=== PATIENT | female | born 1970 | race Caucasian/White ===

== ENCOUNTER 2020-07-05 07:04 | Outpatient (REF) | payer OTHER, SELFPAY ==
[2020-07-05 07:24] LABS: MANUAL DIFF FLAG NO
[2020-07-05 07:26] LABS: Basophils Absolute Auto 0.1 X10*3/uL (0.0-0.2); Basophils Percent Auto 0.6 % (0-2); Eosinophils Absolute Auto 0.2 X10*3/uL (0.0-0.4); Hematocrit 49.6 % (37-47); Hemoglobin 16.5 g/dl (12.0-16.0); Imm Gran Abs Auto 0.03 X10*3/uL (0.00-0.03); Imm Gran Pct Auto 0.2 % (0.0-0.4); Lymphocytes Absolute Auto 3.4 X10*3/uL (1.2-4.9); Lymphocytes Percent Auto 27.3 % (20-40); Mean Corpuscular HGB Conc 33.3 g/dl (31.0-35.0); Mean Corpuscular Hemoglobin 30.7 pg (27.0-33.0); Mean Corpuscular Volume 92.2 fL (80-98); Mean Platelet Volume 9.3 fL (9.4-12.3); Monocytes Absolute Auto 0.8 X10*3/uL (0.1-1.2); Monocytes Percent Auto 6.8 % (2-11); Neutrophils Absolute Auto 7.7 X10*3/uL (2.0-8.3); Neutrophils Percent Auto 63.1 % (45-73); Platelet Count 337 X10*3/uL (160-400); Red Blood Count 5.38 X10*6/uL (4.20-5.50); Red Cell Distribution Width 13.8 % (11.0-16.0); White Blood Count 12.3 X10*3/uL (4.8-10.8)
[2020-07-05 07:51] LABS: Alanine Aminotransferase 94 U/L (0-31); Albumin Level 4.3 g/dL (3.5-5.0); Alkaline Phosphatase 113 U/L (39-117); Anion Gap 13 (12-20); Aspartate Amino Transferase 49 U/L (5-31); Bilirubin Direct 0.3 mg/dL (0.0-0.5); Bilirubin Total 0.4 mg/dL (0.0-1.0); Blood Urea Nitrogen 7 mg/dL (9-16); Calcium 8.9 mg/dL (8.4-10.2); Carbon Dioxide 24 mmol/L (22-29); Chloride 103 mmol/L (96-108); Cholesterol 103 mg/dL; Estimated Glomerular Filt Rate > 60; Glucose Fasting 157 mg/dL (60-99); HDL Cholesterol 29 mg/dL; LDL Cholesterol Calculated 60 mg/dl; Potassium 3.9 mmol/l (3.3-5.1); Sodium 136 mmol/L (135-145); Triglycerides 73 mg/dL
[2020-07-05 08:27] LABS: Estimated Average Glucose 169 mg/dL; Hemoglobin A1c % 7.5 %
== END 2020-07-05 07:05 | disposition home or self-care (01) ==
LOC: HO.LAB 07:04
DX: E78.5 Hyperlipidemia, unspecified (principal); E11.9 Type 2 diabetes mellitus without complications
CPT/HCPCS: 36415; 80053; 80061; 80076; 82248; 83036; 85025

== ENCOUNTER 2020-12-03 06:44 | Outpatient (REF) | payer OTHER, SELFPAY ==
[2020-12-03 08:16] LABS: Basophils Absolute Auto 0.1 X10*3/uL (0.0-0.2); Basophils Percent Auto 0.7 % (0-2); Eosinophils Absolute Auto 0.3 X10*3/uL (0.0-0.4); Eosinophils Percent Auto 2.3 % (0-4); Hematocrit 49.3 % (37-47); Hemoglobin 16.6 g/dl (12.0-16.0); Imm Gran Abs Auto 0.04 X10*3/uL (0.00-0.03); Imm Gran Pct Auto 0.3 % (0.0-0.4); Lymphocytes Absolute Auto 5.2 X10*3/uL (1.2-4.9); Lymphocytes Percent Auto 38.9 % (20-40); MANUAL DIFF FLAG SCAN; Mean Corpuscular HGB Conc 33.7 g/dl (31.0-35.0); Mean Corpuscular Hemoglobin 31.7 pg (27.0-33.0); Mean Corpuscular Volume 94.1 fL (80-98); Mean Platelet Volume 10.3 fL (9.4-12.3); Monocytes Absolute Auto 0.9 X10*3/uL (0.1-1.2); Monocytes Percent Auto 6.7 % (2-11); Neutrophils Absolute Auto 6.8 X10*3/uL (2.0-8.3); Neutrophils Percent Auto 51.1 % (45-73); Platelet Count 369 X10*3/uL (160-400); Red Blood Count 5.24 X10*6/uL (4.20-5.50); Red Cell Distribution Width 13.3 % (11.0-16.0); SCAN SMEAR FLAG 1; White Blood Count 13.3 X10*3/uL (4.8-10.8)
[2020-12-03 08:31] LABS: Alanine Aminotransferase 70 U/L (0-31); Aspartate Amino Transferase 39 U/L (5-31); Glucose Fasting 168 mg/dL (60-99)
[2020-12-03 08:32] LABS: Estimated Average Glucose 166 mg/dL; Hemoglobin A1c % 7.4 %
[2020-12-03 08:54] LABS: SLIDE REVIEW VERIFIED
[2020-12-03 09:17] LABS: Creatinine Urine 148.19 mg/dL; Microalbum/Creatinine Ratio Ur 6.7 ug/mg cr
== END 2020-12-03 06:45 | disposition home or self-care (01) ==
LOC: HO.LAB 06:44
PROVIDERS: PCP Family Medicine; Visit Provider Family Medicine
DX: E78.00 Pure hypercholesterolemia, unspecified (principal); E11.9 Type 2 diabetes mellitus without complications; D45 Polycythemia vera; Z79.899 Other long term (current) drug therapy
CPT/HCPCS: 36415; 82043; 82550; 82947; 83036; 84450; 84460; 85025

== ENCOUNTER 2021-02-10 06:29 | Day surgery (SDC) | payer OTHER, SELFPAY ==
[2021-02-03 13:34] VITALS: BMI 27.3
--- NOTE | 2021-02-09 08:59 | HO.ANESPROP2 ---
HPI - Anesthesia Eval Consult details Narrative: 50yo F for Colonoscopy PMFSH Past Medical History Medical History COVID-19 vaccine administered Diabetes Elevated cholesterol Surgical History Surgical History Hx of elbow surgery Hx of tubal ligation Social History Social History Patient Tobacco Use Status: Current everyday Tobacco user Tobacco use type: Cigarette Cigarette Packs Per Day: 1 Cigarettes Per Day: 20.0 Years Smoked: 40 Smoked in Last 30 Days: Yes Use of substances other than those prescribed or required for medical reasons: No Are you DNR?: No Advance Directives: No (pt states she may have HCP & it would be her ) Advance Directives Information Provided: No Advance Directives on File: No Recently lost weight without trying: No Eating poorly because of decreased appetite: No Nutrition Risks: No Nutritional Risk Patient : No Poor oral hygiene: No Meds Allergies Allergy/AdvReac Type Severity Reaction Status Date / Time mushroom Allergy Intermediate DRY HEAVES Verified 02/10/21 06:34 seafood Allergy Intermediate Nausea and Verified 02/10/21 06:34 Vomiting Home Medications Medication Instructions Recorded Confirmed Last Taken Type atorvastatin 20 mg PO BEDTIME 02/03/21 02/03/21 Unknown History coenzyme Q10 [Co Q-10] 100 mg PO BEDTIME 02/03/21 02/03/21 Unknown History metformin 500 mg PO BEDTIME 02/03/21 02/03/21 Unknown History Exam Exam Date and Time: February 09, 2021 0859 Height,Weight and Vital Signs: Height 5 ft Weight 63.503 kg Assessment and Plan Assessment Anesthesia Assessment: Chart Reviewed
[2021-02-10 06:51] VITALS: BP 121/84; PULSE 110; RESP 18; TEMP 36.8; O2SAT 95
[2021-02-10 06:52] LABS: Glucose, Whole Blood 207 mg/dL (60-115)
[2021-02-10] MEDS: Lactated Ringers 1,000 ML 100 ML IVCONT (07:01)
--- NOTE | 2021-02-10 07:22 | P.CONAN_ITS ---
[facility] Past Medical History Medical History COVID-19 vaccine administered Diabetes Elevated cholesterol Surgical History Surgical History Hx of elbow surgery Hx of tubal ligation Social History Social History Patient Tobacco Use Status: Current everyday Tobacco user Tobacco use type: Cigarette Cigarette Packs Per Day: 1 Cigarettes Per Day: 20.0 Years Smoked: 40 Smoked in Last 30 Days: Yes Use of substances other than those prescribed or required for medical reasons: No Are you DNR?: No Advance Directives: No (pt states she may have HCP & it would be her ) Advance Directives Information Provided: No Advance Directives on File: No Recently lost weight without trying: No Eating poorly because of decreased appetite: No Nutrition Risks: No Nutritional Risk Patient : No Poor oral hygiene: No Meds Allergies Allergy/AdvReac Type Severity Reaction Status Date / Time mushroom Allergy Intermediate DRY HEAVES Verified 02/10/21 06:34 seafood Allergy Intermediate Nausea and Verified 02/10/21 06:34 Vomiting Active Medications: Current Medications Generic Name Dose Route Start Last Admin Trade Name Freq PRN Reason Stop Dose Admin Albuterol Sulfate 2.5 mg 02/10/21 06:30 Albuterol Sulfate (0.083%) 2.5 Mg/3 Ml Vial.Neb INHALE ONCE PRN Shortness of Breath/Wheezing Lactated Ringer's 1,000 mls @ 100 mls/hr 02/10/21 06:30 02/10/21 07:01 Lr IVCONT 100 mls/hr .Q10H LOLITA Administration Home Medications Medication Instructions Recorded Confirmed Last Taken Type atorvastatin 20 mg PO BEDTIME 02/03/21 02/03/21 Unknown History coenzyme Q10 [Co Q-10] 100 mg PO BEDTIME 02/03/21 02/03/21 Unknown History metformin 500 mg PO BEDTIME 02/03/21 02/03/21 Unknown History Exam Exam Date and Time: February 10, 2021 0722 Height,Weight and Vital Signs: Height 5 ft Weight 63.503 kg Last Vital Signs Temp 98.3 F 02/10/21 06:51 Pulse 110 H 02/10/21 06:51 Resp 18 02/10/21 06:51 BP 121/84 02/10/21 06:51 Pulse Ox 95 02/10/21 06:51 Pertinent Lab Results Pertinent Lab Results: Laboratory Tests 02/10/21 06:48 POC Glucose 207 H Airway Mallampati Class: II TM Dist: >3cm Neck ROM: Full Heart: RRR Lungs: CTA
--- NOTE | 2021-02-10 07:27 | MHC.SHP ---
Pre-Procedural Eval Section A Date of Service: 02/10/21 Section B Chief Complaint: screening Details of Present Illness: screening see H&P no changes Relevant Family History (Specify if Yes): No Relevant Social History: None Present Medications: see Short Stay Collaborative assessment Medical History: No relevant PMH History of Previous Operations: No relevant previous surgery Allergies: Allergies Allergy/AdvReac Type Severity Reaction Status Date / Time mushroom Allergy Intermediate DRY HEAVES Verified 02/10/21 06:34 seafood Allergy Intermediate Nausea and Verified 02/10/21 06:34 Vomiting Review of Systems Sugical H&P ROS: Negative: Constitution, Cardiovascular, Respiratory, Neurological, Psychiatric, Hem-Onc, Allergic/Immunologic, Gastrointestinal, Genitourinary, Musculoskeletal, Integumentary, Endocrine and Eyes/Ears/Nose/Throat Exam Surgical H&P Exam: Normal: HEENT, Normal: Heart, Normal: Lungs, Normal: Extremities, Normal: Abdomen, Normal: Skin and Normal: Neurological Plan Diagnosis/Plan: Unchanged I have reviewed the history and physical and performed a pertinent physical examination on my patient. No changes have occurred unless specified.
--- NOTE | 2021-02-10 07:56 | P.BOP_ITS ---
Brief Operative Note Date of Service: 02/10/21 Pre-op diagnosis: screening Post-op diagnosis: same Procedure: colonoscopy Surgeon: Dom Horowitz Anesthesia: MAC Was an Rn Physician Office used for this Procedure?: No Estimated blood loss (mL): 0 Pathology: none sent Condition: stable Disposition: PACU
[2021-02-10 08:00] VITALS: BP 103/73; PULSE 83; RESP 16; TEMP 36.2; O2SAT 97
--- NOTE | 2021-02-10 08:04 | MHC.SHP ---
Pre-Procedural Eval Section A Date of Service: 02/10/21 Section B Chief Complaint: screening Details of Present Illness: screening, see H&P no changes Relevant Family History (Specify if Yes): No Relevant Social History: None Present Medications: see Short Stay Collaborative assessment Medical History: No relevant PMH History of Previous Operations: No relevant previous surgery Allergies: Allergies Allergy/AdvReac Type Severity Reaction Status Date / Time mushroom Allergy Intermediate DRY HEAVES Verified 02/10/21 06:34 seafood Allergy Intermediate Nausea and Verified 02/10/21 06:34 Vomiting Review of Systems Sugical H&P ROS: Negative: Constitution, Cardiovascular, Respiratory, Neurological, Psychiatric, Hem-Onc, Allergic/Immunologic, Gastrointestinal, Genitourinary, Musculoskeletal, Integumentary, Endocrine and Eyes/Ears/Nose/Throat Exam Surgical H&P Exam: Normal: HEENT, Normal: Heart, Normal: Lungs, Normal: Extremities, Normal: Abdomen, Normal: Skin and Normal: Neurological Plan Diagnosis/Plan: Unchanged I have reviewed the history and physical and performed a pertinent physical examination on my patient. No changes have occurred unless specified.
[2021-02-10 08:14] VITALS: BP 109/70; PULSE 83; RESP 16; TEMP 36.2; O2SAT 98
--- NOTE | 2021-02-10 11:12 | HO.POSTANES ---
Post Anesthesia Evaluation Post Anesthesia Evaluation Vital Signs: Vital Signs Temp Pulse Resp BP Pulse Ox 02/10/21 08:14 97.1 F 83 16 109/70 98 02/10/21 08:00 97.1 F 83 16 103/73 97 02/10/21 06:51 98.3 F 110 H 18 121/84 95 Anesthesia: Monitored Mental Status: Awake Pain Control: Satisfactory Nausea/Vomiting: None Hydration: Adequate Anesthesia-Related Issues: No Anes. Related Issues
--- NOTE | 2021-02-10 18:52 | OP_ITS ---
SURGEON: Dom Horowitz MD INDICATIONS: Colon cancer screening. PREOPERATIVE DIAGNOSIS: POSTOPERATIVE DIAGNOSIS: PROCEDURE PERFORMED: Colonoscopy to the cecum. ESTIMATED BLOOD LOSS: COMPLICATIONS: ANESTHESIA: ASSISTANTS: SPECIMENS: MEDICATIONS: Monitored anesthesia care. DESCRIPTION OF PROCEDURE: History and physical performed. The risks and benefits of the procedure were explained to the patient. Informed consent was obtained. The patient was placed in the left lateral decubitus position. A digital rectal exam was performed and was found to be normal. The Olympus pediatric video colonoscope was introduced into the rectum and advanced to the cecum without difficulty. The cecum was identified by transillumination, palpation, and identification of ileocecal valve. Examination was performed. The scope was removed. She tolerated the procedure well and was returned to recovery in stable condition. FINDINGS: The terminal ileum was not examined. The visualized colonic mucosa was normal. The quality of prep was good. No polyps were identified. There was mild sigmoid diverticulosis. Retroflexed examination was normal. IMPRESSION: Normal colonoscopy. RECOMMENDATION: 1. Follow up as needed. 2. Repeat colonoscopy is recommended in 10 years for average risk individuals. MD GUSTAVO Quintana/ROSY / [id number]
== END 2021-02-10 08:48 | disposition home or self-care (01) ==
PROVIDERS: PCP Family Medicine; Visit Provider Internal Medicine Gastroenterology
PROC: 0DJD8ZZ Inspection of Lower Intestinal Tract, Via Natural or Artificial Opening Endoscopic (ICD-10-PCS; CPT 45378; principal; 2021-02-10 07:30)
DX: Z12.11 Encounter for screening for malignant neoplasm of colon (principal); K57.30 Diverticulosis of large intestine without perforation or abscess without bleeding; E11.9 Type 2 diabetes mellitus without complications; E78.00 Pure hypercholesterolemia, unspecified; F17.210 Nicotine dependence, cigarettes, uncomplicated; Z79.84 Long term (current) use of oral hypoglycemic drugs; Z79.899 Other long term (current) drug therapy
CPT/HCPCS: 45378; 82947

== ENCOUNTER 2021-03-23 09:01 | Outpatient (REF) | payer OTHER, SELFPAY ==
--- NOTE | ~2021-03-23 | MM_ITS ---
EXAMINATION: MM SCREENING DIGITAL BREAST TOMOSYNTHESIS, BILATERAL CLINICAL INFORMATION: Screening. Asymptomatic. The lifetime risk of breast cancer based on the Tyrer-Cuzick Model is 7%. COMPARISON: Mammography: 03/20/2020, 03/15/2019, 12/03/2016 TECHNIQUE: Digital breast tomosynthesis is performed in both the craniocaudal and mediolateral oblique views along with computer-aided detection (CAD). Synthesized 2D images are generated from the tomosynthesis. FINDINGS: There are scattered areas of fibroglandular density (ACR BI-RADS breast composition Category b). There are no significant masses, abnormal calcifications, or other abnormalities. Parenchymal pattern is similar to prior studies. Inhomogeneous parenchymal pattern with some stable asymmetry are stable. There is no developing density. No abnormal calcifications. The axilla and skin contours are unremarkable. MM/MM tomosynthesis screening BI IMPRESSION: No significant changes from prior exams. ASSESSMENT: BI-RADS 2: Benign RECOMMENDATION: Routine annual mammography screening. This patient's information was entered into a reminder system with a target due date for their next mammogram.
== END 2021-03-23 09:02 | disposition home or self-care (01) ==
LOC: HO.MAMMO 09:01
PROVIDERS: PCP Family Medicine; Visit Provider Family Medicine
DX: Z12.31 Encounter for screening mammogram for malignant neoplasm of breast (principal)
CPT/HCPCS: 77063; 77067

== ENCOUNTER 2021-06-20 07:04 | Outpatient (REF) | payer OTHER, SELFPAY ==
[2021-06-20 07:43] LABS: Basophils Absolute Auto 0.1 X10*3/uL (0.0-0.2); Basophils Percent Auto 0.6 % (0-2); Eosinophils Absolute Auto 0.3 X10*3/uL (0.0-0.4); Eosinophils Percent Auto 1.9 % (0-4); Hematocrit 49.7 % (37.0-47.0); Hemoglobin 16.2 g/dl (12.0-16.0); Imm Gran Abs Auto 0.04 X10*3/uL (0.00-0.03); Imm Gran Pct Auto 0.3 % (0.0-0.4); Lymphocytes Absolute Auto 5.1 X10*3/uL (1.2-4.9); Lymphocytes Percent Auto 37.9 % (20-40); MANUAL DIFF FLAG SCAN; Mean Corpuscular HGB Conc 32.6 g/dl (31.0-35.0); Mean Corpuscular Hemoglobin 30.2 pg (27.0-33.0); Mean Corpuscular Volume 92.7 fL (80.0-98.0); Mean Platelet Volume 9.3 fL (9.4-12.3); Monocytes Absolute Auto 0.7 X10*3/uL (0.1-1.2); Monocytes Percent Auto 5.2 % (2-11); Neutrophils Absolute Auto 7.2 x10*3/uL (2.0-8.3); Neutrophils Percent Auto 54.1 % (45-73); Platelet Count 372 X10*3/uL (160-400); Red Blood Count 5.36 X10*6/uL (4.20-5.50); Red Cell Distribution Width 13.4 % (11.0-16.0); SCAN SMEAR FLAG 1; White Blood Count 13.4 X10*3/uL (4.8-10.8)
[2021-06-20 08:04] LABS: Estimated Average Glucose 214 mg/dL; Hemoglobin A1c % 9.1 %
[2021-06-20 08:05] LABS: SLIDE REVIEW VERIFIED
[2021-06-20 08:06] LABS: Alanine Aminotransferase 75 U/L (0-31); Aspartate Amino Transferase 41 U/L (5-31); Blood Urea Nitrogen 9 mg/dL (9-16); Cholesterol 116 mg/dL; Estimated Glomerular Filt Rate > 60; Glucose Fasting 219 mg/dL (60-99); HDL Cholesterol 29 mg/dL; LDL Cholesterol Calculated 67 mg/dl; Triglycerides 102 mg/dL
[2021-06-20 08:11] LABS: Creatinine Urine 133.03 mg/dL; Microalbum/Creatinine Ratio Ur 7.5 ug/mg cr
== END 2021-06-20 07:05 | disposition home or self-care (01) ==
LOC: HO.LAB 07:04
PROVIDERS: PCP Family Medicine; Visit Provider Family Medicine
DX: E78.00 Pure hypercholesterolemia, unspecified (principal); E11.9 Type 2 diabetes mellitus without complications; R71.8 Other abnormality of red blood cells; Z79.899 Other long term (current) drug therapy
CPT/HCPCS: 36415; 80061; 82043; 82550; 82565; 82947; 83036; 84443; 84450; 84460; 84520; 85025

== ENCOUNTER 2021-09-15 14:53 | Outpatient (REF) | payer OTHER, SELFPAY ==
--- NOTE | ~2021-09-15 | XR_ITS ---
EXAMINATION: XR HAND, RIGHT CLINICAL INFORMATION: Pain right hand COMPARISON: None TECHNIQUE: PA, lateral, and oblique views of the right hand. FINDINGS: The bones and soft tissues are normal. No fracture. Alignment is anatomic. Joint spaces are maintained. No erosions or soft tissue calcifications. XR/XR hand RT min 3V IMPRESSION: Unremarkable right hand.
== END 2021-09-15 14:54 | disposition home or self-care (01) ==
LOC: HO.HOSX 14:53
PROVIDERS: PCP Family Medicine; Visit Provider Orthopaedic Surgery
DX: M79.641 Pain in right hand (principal); M79.89 Other specified soft tissue disorders
CPT/HCPCS: 73130

== ENCOUNTER 2021-11-30 06:44 | Outpatient (REF) | payer OTHER, SELFPAY ==
[2021-11-30 07:28] LABS: Estimated Average Glucose 171 mg/dL; Hemoglobin A1c % 7.6 %
[2021-11-30 07:35] LABS: Glucose Fasting 182 mg/dL (60-99)
== END 2021-11-30 06:45 | disposition home or self-care (01) ==
LOC: HO.LAB 06:44
PROVIDERS: PCP Family Medicine; Visit Provider Family Medicine
DX: E11.9 Type 2 diabetes mellitus without complications (principal)
CPT/HCPCS: 36415; 82947; 83036

== ENCOUNTER → 2021-12-23 14:25 | Outpatient (BNVA) | payer OTHER, SELFPAY | PROVIDERS: PCP Family Medicine; Visit Provider Orthopaedic Surgery | DX: M79.89 Other specified soft tissue disorders (principal) ==

== ENCOUNTER 2022-02-18 10:04 | Day surgery (SDC) | payer OTHER, SELFPAY ==
[2022-02-18 10:15] VITALS: BMI 26.4
[2022-02-18 10:26] VITALS: BP 109/76; PULSE 100; RESP 18; TEMP 36.6; O2SAT 96
--- NOTE | 2022-02-18 12:55 | P.OP_ITS ---
Operative Note Operative Note Date of Service: 02/18/22 Narrative: Operative Note Preop diagnosis: 1. right middle finger volar soft tissue mass. Postop diagnosis: same Procedure: 1. right middle finger volar soft tissue mass excisional biopsy Surgeon: Denisse Ceron MD Anesthesia: digital block using 1% lidocaine with epinephrine Findings: multi lobular, friable soft tissue mass adherent to the underside of the dermis, measured approximately 8 mm in diameter when whole. EBL: Less than 5 mL Tourniquet time: None Specimens: Right middle finger soft tissue mass sent for histopathology Complications: None Disposition: Brought to recovery room in stable condition Plan: Follow-up for 7-10 days for wound check and suture removal and to check pathology Indications: The patient is 51 years old, with a right middle finger volar soft tissue mass . The risks and benefits of operative treatment including but not limited to risk of damage to blood vessels, nerves, tendons, infection, persistent pain, persistent symptoms, recurrence or possible need for additional surgery were discussed with the patient and the patient wishes to proceed with surgery. Procedure: Once consent was obtained a digital block was performed in the preop area using a combination of 1% lidocaine with epinephrine. The patient was then brought back to the operating suite and placed on the operative table in supine position. A tourniquet was applied to the proximal aspect of the right upper extremity and the limb was prepped and draped in a standard surgical fashion. Once assured that we had a good block, I made a 1.5 cm oblique incision direc tly over the right middle finger volar soft tissue mass over the proximal phalanx. The incision was made through the skin to the subcutaneous tissues using a 15. Blade. I then carefully dissected down to the subcutaneous tissue. There was a multi lobular, friable soft tissue mass that appeared to be adherent to the underside of the dermis on either side of the incision. This tissue was carefully dissected free from the underside of the dermis and from the surrounding subcutaneous tissue and placed on the back table to be sent for histopathology. Bipolar electrocautery was used to cauterize 1 feeder vessel to the mass. Once satisfied with Excision a biopsy the wound was copiously irrigated with normal saline and hemostasis was obtained with a brief period of local pressure. The skin edges were reapproximated with some 5.0 nylon suture material and a sterile dressing was applied. The patient appears to have tolerated the procedure well and with no complications. All digits were well vascularized at the conclusion of the case.
--- NOTE | 2022-02-18 13:05 | PC.NURSE ---
PATIENT WAS DISCHARGED HOME WHILE THIS RN AT [facility]. PATIENT CALLED AND MESSAGE LEFT TO LET THEM KNOW A PRESCRIPTION WAS SCANNED TO THEIR PHARMACY. PT LEFT W/OUT SIGNING A SIGNATURE PAGE.
--- NOTE | 2022-02-18 13:08 | PC.NURSE ---
ADDENDUM TO DISCHARGE: VITAL SIGNS POST PROCEDURE. P 101, BP 118/77, 02 97, R 16.
== END 2022-02-18 13:07 | disposition home or self-care (01) ==
PROVIDERS: PCP Family Medicine; Visit Provider Orthopaedic Surgery
PROC: (CPT 26115; principal; 2022-02-18 11:40)
DX: D18.01 Hemangioma of skin and subcutaneous tissue (principal); M79.89 Other specified soft tissue disorders; E78.00 Pure hypercholesterolemia, unspecified; E11.9 Type 2 diabetes mellitus without complications; Z79.84 Long term (current) use of oral hypoglycemic drugs; F17.210 Nicotine dependence, cigarettes, uncomplicated
CPT/HCPCS: 26115; 88304; J0171

== ENCOUNTER 2022-03-24 11:14 | Outpatient (REF) | payer OTHER, SELFPAY ==
--- NOTE | ~2022-03-24 | MM_ITS ---
EXAMINATION: MM SCREENING DIGITAL BREAST TOMOSYNTHESIS, BILATERAL CLINICAL INFORMATION: Screening. Asymptomatic. The lifetime risk of breast cancer based on the Tyrer-Cuzick Model is 9%. COMPARISON: Mammography: 03/23/2021, 03/20/2020, 03/15/2019 TECHNIQUE: Digital breast tomosynthesis is performed in both the craniocaudal and mediolateral oblique views along with computer-aided detection (CAD). Synthesized 2D images are generated from the tomosynthesis. Additional right CC and right MLO views are provided. FINDINGS: There are scattered areas of fibroglandular density (ACR BI-RADS breast composition Category b). There are no significant masses, abnormal calcifications, or other abnormalities. Parenchymal pattern is similar to prior studies. There is no developing density or architectural abnormality. The axilla and skin contours are unremarkable. No significant changes. MM/MM tomosynthesis screening BI IMPRESSION: No mammographic evidence of malignancy. ASSESSMENT: BI-RADS 1: Negative RECOMMENDATION: Routine annual mammography screening. This patient's information was entered into a reminder system with a target due date for their next mammogram.
== END 2022-03-24 11:15 | disposition home or self-care (01) ==
LOC: HO.MAMMO 11:14
PROVIDERS: PCP Family Medicine; Visit Provider Family Medicine
DX: Z12.31 Encounter for screening mammogram for malignant neoplasm of breast (principal)
CPT/HCPCS: 77063; 77067

== ENCOUNTER 2022-04-17 07:44 | Outpatient (REF) | payer OTHER, SELFPAY ==
[2022-04-17 09:01] LABS: Estimated Average Glucose 217 mg/dL; Hemoglobin A1c % 9.2 %
[2022-04-17 09:07] LABS: Alanine Aminotransferase 61 U/L (0-31); Aspartate Amino Transferase 29 U/L (5-31); Blood Urea Nitrogen 7 mg/dL (9-16); Cholesterol 104 mg/dL; Glucose Fasting 249 mg/dL (60-99); HDL Cholesterol 26 mg/dL; LDL Cholesterol Calculated 58 mg/dl; Triglycerides 102 mg/dL
[2022-04-17 11:11] LABS: Microalbum/Creatinine Ratio Ur 7.1 ug/mg cr
== END 2022-04-17 07:45 | disposition home or self-care (01) ==
LOC: HO.LAB 07:44
PROVIDERS: PCP Family Medicine; Visit Provider Family Medicine
DX: E11.9 Type 2 diabetes mellitus without complications (principal); E78.00 Pure hypercholesterolemia, unspecified; Z79.899 Other long term (current) drug therapy
CPT/HCPCS: 36415; 80061; 82043; 82550; 82947; 83036; 84450; 84460; 84520

== ENCOUNTER 2022-09-25 06:42 | Outpatient (REF) | payer OTHER, SELFPAY ==
[2022-09-25 11:20] LABS: Estimated Average Glucose 194 mg/dL; Hemoglobin A1c % 8.4 %
[2022-09-25 11:36] LABS: Alanine Aminotransferase 35 U/L (0-31); Aspartate Amino Transferase 25 U/L (5-31); Blood Urea Nitrogen 9 mg/dL (9-16); Estimated Glomerular Filt Rate > 60; Glucose Fasting 204 mg/dL (60-99)
[2022-09-25 11:57] LABS: Creatinine Urine 113.29 mg/dL; Microalbum/Creatinine Ratio Ur 7.9 ug/mg cr
== END 2022-09-25 06:43 | disposition home or self-care (01) ==
LOC: HO.HMGCLDS 06:42
PROVIDERS: PCP Family Medicine; Visit Provider Family Medicine
DX: E11.9 Type 2 diabetes mellitus without complications (principal); E78.00 Pure hypercholesterolemia, unspecified; Z79.899 Other long term (current) drug therapy
CPT/HCPCS: 36415; 82043; 82550; 82565; 82947; 83036; 84450; 84460; 84520

== ENCOUNTER 2022-11-09 15:18 | Outpatient (REF) | payer OTHER, SELFPAY | END 2022-11-09 15:19 | disposition home or self-care (01) | LOC: HO.LNP 15:18 | PROVIDERS: PCP Family Medicine; Referring Provider Family Medicine; Visit Provider Surgery | DX: L72.3 Sebaceous cyst (principal); L08.9 Local infection of the skin and subcutaneous tissue, unspecified | CPT/HCPCS: 10061; 87070; 87077; 87186; 87205 ==

== ENCOUNTER 2022-11-09 15:45 | Outpatient (REF) | payer OTHER, SELFPAY | END 2022-11-09 15:46 | disposition home or self-care (01) | LOC: HO.LAB 15:45 | PROVIDERS: Visit Provider Surgery | DX: Z13.89 Encounter for screening for other disorder (principal) ==

== ENCOUNTER → 2022-11-10 09:46 | Outpatient (BNVA) | payer OTHER, SELFPAY | PROVIDERS: PCP Family Medicine; Visit Provider Surgery | DX: Z13.89 Encounter for screening for other disorder (principal) ==

== ENCOUNTER → 2022-11-11 09:42 | Outpatient (BNVA) | payer OTHER, SELFPAY | PROVIDERS: PCP Family Medicine; Visit Provider Surgery | DX: Z13.89 Encounter for screening for other disorder (principal) ==

== ENCOUNTER → 2022-11-12 09:39 | Outpatient (BNVA) | payer OTHER, SELFPAY | PROVIDERS: PCP Family Medicine; Referring Provider Family Medicine; Visit Provider Surgery | DX: Z13.89 Encounter for screening for other disorder (principal) ==

== ENCOUNTER → 2022-11-15 09:40 | Outpatient (BNVA) | payer OTHER, SELFPAY | PROVIDERS: PCP Family Medicine; Visit Provider Surgery | DX: Z13.89 Encounter for screening for other disorder (principal) ==

== ENCOUNTER → 2022-11-16 14:18 | Outpatient (BNVA) | payer OTHER, SELFPAY | PROVIDERS: PCP Family Medicine; Visit Provider Surgery | DX: L72.3 Sebaceous cyst (principal); L08.9 Local infection of the skin and subcutaneous tissue, unspecified; K61.1 Rectal abscess ==

== ENCOUNTER → 2022-11-18 08:42 | Outpatient (BNVA) | payer OTHER, SELFPAY | PROVIDERS: PCP Family Medicine; Visit Provider Surgery | DX: Z13.89 Encounter for screening for other disorder (principal) ==

== ENCOUNTER → 2022-12-21 14:17 | Outpatient (BNVA) | payer OTHER, SELFPAY | PROVIDERS: PCP Family Medicine; Visit Provider Surgery ==

== ENCOUNTER 2023-01-31 05:58 | Day surgery (SDC) | payer OTHER, SELFPAY ==
[2023-01-26 09:31] VITALS: BMI 25.2
--- NOTE | 2023-01-28 10:02 | P.CONAN_ITS ---
Documented by User: Cheri Zapien NP 01/28/23 10:02 HPI - Anesthesia Eval Consult details Narrative: 52yo F for Excision Mid Back Mass PMFSH Active Problems Active Problems: All Active Problems (Updated 01/26/23 @ 09:28 by Pina Chavez, ADILSON) Mass of soft tissue of right upper extremity (Acute) Infected sebaceous cyst of skin (Acute) Past Medical History Medical History Diabetes Elevated cholesterol Surgical History Surgical History H/O colonoscopy Hx of elbow surgery Hx of excision of mass Hx of tubal ligation Social History Social History (Updated 01/31/23 @ 07:20 by Rika Nunez MD) Patient Tobacco Use Status: Current everyday Tobacco user Tobacco use type: Cigarette Cigarette Packs Per Day: 1 Cigarettes Per Day: 20.0 Years Smoked: 40 Second Hand Smoke Exposure: No Current occupational status: employed 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 Allergies Allergy/AdvReac Type Severity Reaction Status Date / Time mushroom Allergy Intermediate DRY HEAVES Verified 12/21/22 14:23 seafood Allergy Intermediate Nausea and Verified 12/21/22 14:23 Vomiting Home Medications Medication Instructions Recorded Confirmed Last Taken Type atorvastatin 20 mg tablet 20 mg PO BEDTIME 02/03/21 01/26/23 Unknown History coenzyme Q10 100 mg capsule (Co 100 mg PO BEDTIME 02/03/21 01/26/23 Unknown History Q-10) metformin 500 mg tablet,extended 500 mg PO BEDTIME 02/03/21 01/26/23 Unknown History release 24 hr metoprolol succinate 25 mg 25 mg PO DAILY 11/10/22 01/26/23 01/31/23 History tablet,extended release 24 hr Exam Exam Date and Time: January 28, 2023 1002 Height,Weight and Vital Signs: Height 5 ft Weight 58.513 kg Assessment and Plan Assessment Anesthesia Assessment: Chart Reviewed Documented by User: Rika Nunez MD 01/31/23 07:24 [facility] Past Medical History Medical History Diabetes Elevated cholesterol Family History Family history of problems with anesthesia: No Surgical History Surgical History H/O colonoscopy Hx of elbow surgery Hx of excision of mass Hx of tubal ligation History of Problems with Anesthesia: No Social History Social History (Updated 01/31/23 @ 07:20 by Rika Nunez MD) Patient Tobacco Use Status: Current everyday Tobacco user Tobacco use type: Cigarette Cigarette Packs Per Day: 1 Cigarettes Per Day: 20.0 Years Smoked: 40 Second Hand Smoke Exposure: No Current occupational status: employed 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 Allergies Allergy/AdvReac Type Severity Reaction Status Date / Time mushroom Allergy Intermediate DRY HEAVES Verified 12/21/22 14:23 seafood Allergy Intermediate Nausea and Verified 12/21/22 14:23 Vomiting Home Medications Medication Instructions Recorded Confirmed Last Taken Type atorvastatin 20 mg tablet 20 mg PO BEDTIME 02/03/21 01/26/23 Unknown History coenzyme Q10 100 mg capsule (Co 100 mg PO BEDTIME 02/03/21 01/26/23 Unknown History Q-10) metformin 500 mg tablet,extended 500 mg PO BEDTIME 02/03/21 01/26/23 Unknown History release 24 hr metoprolol succinate 25 mg 25 mg PO DAILY 11/10/22 01/26/23 01/31/23 History tablet,extended release 24 hr Exam Height,Weight and Vital Signs: Height 5 ft Weight 58.513 kg Vital Signs Temp Pulse Resp BP Pulse Ox O2 Del Method 01/31/23 06:23 97.1 F 85 17 111/69 96 Room Air Pertinent Lab Results Pertinent Lab Results: Lab Results 01/31/23 Range/Units 06:24 POC Glucose 182 H (60-115) mg/dL Airway Mallampati Class: II TM Dist: >3cm Neck ROM: Full Loose/Missing/Broken Teeth: Yes (Missing top left back) Heart: RR R Lungs: CTAB Assessment and Plan Assessment Anesthesia Assessment: Anesthesia Plan Discussed Final Anesthetic Review Family History of Problems with Anesthesia: No History of Problems with Anesthesia: No NPO: Yes ASA Class: II Final Preanesthetic Review: No Changes in Pt Med Stat, Meds/Allgs Chart Reviewed, Consent Obtained/Reviewed and Anes Risks/Benef Reviewed Patient Risk: Low Procedure Risk: Low Assessment/Block/Sedation in SS: Assess/Block/Sedation-SS Anesthetic Plan Anesthetic Plan: MAC: Disposition: Standard PACU
--- NOTE | 2023-01-28 12:35 | MHC.SHP ---
Pre-Procedural Eval Section A Date of Service: 01/28/23 The patient is an INPATIENT: No Changes since office visit: No Cold of Flu in the past 2 weeks, No New Medical Problems, No Changes in Medication and No Patient answered all questions The History & Physical has been completed within 30 days and I have reviewed it.: Yes Section B Chief Complaint: Sebaceous cyst,local infection of skin Allergies: Allergies Allergy/AdvReac Type Severity Reaction Status Date / Time mushroom Allergy Intermediate DRY HEAVES Verified 12/21/22 14:23 seafood Allergy Intermediate Nausea and Verified 12/21/22 14:23 Vomiting Plan I have reviewed the history and physical and performed a pertinent physical examination on my patient. No changes have occurred unless specified. Time Spent With Patient Time: Total time managing care of this patient today ____ minutes.
[2023-01-31 06:23] VITALS: BP 111/69; PULSE 85; RESP 17; TEMP 36.2; O2SAT 96
[2023-01-31 06:28] LABS: Glucose, Whole Blood 182 mg/dL (60-115)
[2023-01-31] MEDS: Lactated Ringers 1,000 ML 100 ML IVCONT (06:32)
--- NOTE | 2023-01-31 07:56 | W.PM.OPN ---
Operative Note Operative Note Date of Service: 01/31/23 Narrative: Preoperative diagnosis: [] Mid back large sebaceous cyst Postop diagnosis: [] same Procedure [] excision large sebaceous cyst Surgeon: [] Dimitri Creative Designer: [] kaity Bills Type of Anesthesia: [] MAC Indication for surgery: [] approximately 4 x 3 cm large sebaceous cyst of the midback. Findings: [] Patient brought to the operating, placed in op table supine position, after adequate level of MAC anesthesia was induced and wound infiltrated 1% lidocaine, after thepatient was placed in a right lateral decubitus position and the Mid back was prepped and draped in usual sterile fashion. Using a transverse by elliptical incision encompassing the mass in question, this carried down through skin, subcutaneous tissue, and undermined using electro Bovie. Wound was irrigated, secured hemostasis, and closed using interrupted inverted dermal 3-0 Vicryl sutures followed by Steri-Strips and sterile dressings. The specimen was sent to pathology. Patient tolerated procedure well and emerged anesthesia stable condition. EBL minimal
[2023-01-31 08:01] VITALS: BP 94/55; PULSE 88; RESP 16; TEMP 36.9; O2SAT 97
[2023-01-31 08:17] VITALS: BP 94/65; PULSE 82; RESP 18; TEMP 36.9; O2SAT 98
== END 2023-01-31 08:45 | disposition home or self-care (01) ==
PROVIDERS: PCP Family Medicine; Visit Provider Surgery
PROC: (CPT 11404; principal; 2023-01-31 07:30)
DX: L72.3 Sebaceous cyst (principal); L08.9 Local infection of the skin and subcutaneous tissue, unspecified; E78.00 Pure hypercholesterolemia, unspecified; E11.9 Type 2 diabetes mellitus without complications; Z79.84 Long term (current) use of oral hypoglycemic drugs; Z79.899 Other long term (current) drug therapy; F17.210 Nicotine dependence, cigarettes, uncomplicated
CPT/HCPCS: 11404; 82947; 88304; J0690; J2250; J3010

== ENCOUNTER → 2023-02-07 08:51 | Outpatient (BNVA) | payer OTHER, SELFPAY | PROVIDERS: PCP Family Medicine; Visit Provider Surgery ==

== ENCOUNTER 2023-03-16 08:21 | Outpatient (REF) | payer OTHER, SELFPAY ==
--- NOTE | 2023-03-16 08:30 | PFT_ITS ---
INDICATION: Smoker. SPIROMETRY: FEV1 to FVC of 77% with an FEV1 of 2.02 L, which is 86% predicted and an FVC of 2.62 L, which is 87% predicted. Maximum voluntary ventilation 115% predicted. No significant response to bronchodilators noted. LUNG VOLUMES: Total lung capacity 104% predicted. Residual volume 131% predicted. DIFFUSION CAPACITY: DLCO of 77% predicted. COMPARISONS: None. INTERPRETATION: No obstructive nor restrictive ventilatory defects identified. No significant response to bronchodilators noted. Lung volumes do demonstrate evidence of air trapping, which could be secondary to small airway disease and respiratory bronchiolitis and smoking. Expiratory reserve volume is also decreased. Diffusion capacity also demonstrates a mild diffusion impairment. Clinical correlation warranted. Berlin Perez MD MR/MODL / [id number]
== END 2023-03-16 08:22 | disposition home or self-care (01) ==
LOC: HO.RESP 08:21
PROVIDERS: PCP Family Medicine; Visit Provider Family Medicine
DX: F17.210 Nicotine dependence, cigarettes, uncomplicated (principal)
CPT/HCPCS: 94060; 94727; 94729

== ENCOUNTER → 2023-03-16 08:30 | Outpatient (BNV) | payer OTHER, SELFPAY | PROVIDERS: PCP Family Medicine; Visit Provider Hospitalist | DX: F17.210 Nicotine dependence, cigarettes, uncomplicated (principal) | CPT/HCPCS: 94060; 94727; 94729 ==

== ENCOUNTER 2023-03-28 07:39 | Outpatient (REF) | payer OTHER, SELFPAY ==
--- NOTE | ~2023-03-28 | MM_ITS ---
EXAMINATION: MM SCREENING DIGITAL BREAST TOMOSYNTHESIS, BILATERAL CLINICAL INFORMATION: Screening. Asymptomatic. COMPARISON: Mammography: 03/24/2022, 03/23/2021, 03/20/2020, 03/15/2019, 12/03/2016 TECHNIQUE: Digital breast tomosynthesis is performed in both the craniocaudal and mediolateral oblique views along with computer-aided detection (CAD). Synthesized 2D images are generated from the tomosynthesis. FINDINGS: There are scattered areas of fibroglandular density (ACR BI-RADS breast composition Category b). There are no suspicious masses, suspicious grouped calcifications, or areas of architectural distortion. The overall parenchymal pattern is stable from prior exams. No skin changes noted. MM/MM tomosynthesis screening BI IMPRESSION: No mammographic evidence of malignancy. ASSESSMENT: BI-RADS BI-RADS 1 - Negative RECOMMENDATION: Routine annual mammography screening. 1 year F/U This examination should not preclude the clinical evaluation of a suspicious palpable abnormality. This patient's information was entered into a reminder system with a target due date for their next mammogram.
== END 2023-03-28 07:40 | disposition home or self-care (01) ==
LOC: HO.MAMMO 07:39
PROVIDERS: PCP Family Medicine; Visit Provider Family Medicine
DX: Z12.31 Encounter for screening mammogram for malignant neoplasm of breast (principal)
CPT/HCPCS: 77063; 77067

== ENCOUNTER → 2023-03-28 08:00 | Outpatient (BNV) | payer OTHER, SELFPAY | PROVIDERS: PCP Family Medicine; Visit Provider Radiology Diagnostic Radiology | DX: Z12.31 Encounter for screening mammogram for malignant neoplasm of breast (principal) | CPT/HCPCS: 77063; 77067 ==

== ENCOUNTER 2023-04-08 07:29 | Outpatient (REF) | payer OTHER, SELFPAY ==
[2023-04-08 12:12] LABS: Glucose Fasting 177 mg/dL (60-99)
[2023-04-08 12:42] LABS: Estimated Average Glucose 186 mg/dL; Hemoglobin A1c % 8.1 % (<6.0)
== END 2023-04-08 07:30 | disposition home or self-care (01) ==
LOC: HO.HMGCLDS 07:29
PROVIDERS: PCP Family Medicine; Visit Provider Family Medicine
DX: E11.9 Type 2 diabetes mellitus without complications (principal)
CPT/HCPCS: 36415; 82947; 83036

== ENCOUNTER 2023-05-06 14:17 | Outpatient (AMB) | payer OTHER, SELFPAY ==
--- NOTE | 2023-05-06 10:25 | MHC.OFFVIS ---
Intake Intake Visit Reasons: LDCT SD Allergies mushroom Allergy (Intermediate, Verified 02/07/23 08:57) DRY HEAVES seafood Allergy (Intermediate, Verified 02/07/23 08:57) Nausea and Vomiting HPI LDCT SD HPI Details Initial visit for this 52yo smoker with a 30PYH. Patient has been smoking since age 16 for 36 years at 1ppd. . Denies marijuana use. Notes second hand smoke exposure. . Denies exposure to chemicals or substances like asbestos. . Denies known family history of lung cancer. Denies personal history of cancers. Denies chest CT in last year. . Denies recent travel outside the [place]. Denies recent respiratory illness or recent hospitalization for respiratory issues. Reports testing positive for COVID - 10/2020 Admits receiving COVID Vaccine. x 2. . Denies fever, chills, new/worsening cough, hemoptysis, hoarseness or dysphagia. Denies significant chest pain, significant dyspnea or unintentional weight loss. Patient Lung Cancer Screening Questionnaire reviewed with patient by provider. . Shared Decision Making Completed. Patient meets criteria. Discussed in detail with patient, the risk vs benefit of LDCT screening. Patient consents to proceed with scan. Discussed smoking cessation. [facility] Medical History (Updated 05/02/23 @ 12:14 by Delia Ross PA-C) Nicotine dependence, cigarettes, uncomplicated GERD (gastroesophageal reflux disease) Hyperlipidemia Type 2 diabetes mellitus (~2013) Surgical History (Updated 05/02/23 @ 12:15 by Delia Ross PA-C) History of surgical removal of ganglion cyst (~1996) History of excision of hemangioma (~2021) History of colonoscopy (~2020) History of excision of epidermal inclusion cyst (~2022) History of tubal ligation (~1994) History of elbow surgery (~2013) Social History (Updated 05/06/23 @ 14:31 by Delia Ross PA-C) Patient Tobacco Use Status: Current everyday Tobacco user Tobacco use type: Cigarette Cigarette Packs Per Day: 1 Cigarettes Per Day: 20.0 Years Smoked: (onset 16yo, 1ppd x 36yrs, 30+PYH) Second Hand Smoke Exposure: No Current occupational status: employed 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 - Patient meets criteria for LDCT for lung cancer screening purposes and is asymptomatic. - Smoking cessation counseling offered. Patients can always call [phone]. - Will arrange for a LDCT scan of the chest for screening purposes at [facility]. - Risks, benefits, and alternatives were discussed in detail and the patient agrees to proceed. - Risks discussed include but are not limited to: radiation exposure, anxiety during testing and while awaiting results, false negatives, false positives and possibility of additional intervention such as further imaging or surgical procedures for benign disease. - Benefits are obviously detection of lung cancer at an early stage which can lead to improved outcomes. - Discussed the importance of screening program compliance with adherence to yearly LDCT scan as scheduled - or sooner interval scans for personalized screening regimen. - Discussed follow up plan. Our office will send a letter discussing results and if needed set up phone call and office visit based on CT findings. - Patient educated on results categorization and the management decisions for suspicious findings potentially found on the screening LDCT scan. Any patient with a Lung RADS score of 3 or 4 will be reviewed by a multidisciplinary team at [facility] to form a plan of action in regards to scan findings. - If further work up is warranted for a suspicious lung finding this will be followed by the Lung Cancer Screening program in conjunction with the Thoracic Surgery Department at [facility]. - A copy of the office note and LDCT will be sent to the patient's PCP - as well as documentation on any associated further plans of care. - Incidental findings on LDCT are the PCP's responsibility. These findings are indicated with an S finding on the LDCT Assessment. A note discussing the findings will be sent to the PCP who is then responsible for further management. - All questions answered.? Coding Level of Care Code Lung Cancer Screening G0296 Diagnoses Nicotine dependence, cigarettes, uncomplicated F17.210
== END 2023-05-06 14:40 | disposition home or self-care (01) ==
PROVIDERS: PCP Family Medicine; Visit Provider Physician Assistant Medical
DX: F17.210 Nicotine dependence, cigarettes, uncomplicated (principal)
CPT/HCPCS: G0296

== ENCOUNTER 2023-05-06 14:41 | Outpatient (REF) | payer OTHER, SELFPAY ==
--- NOTE | ~2023-05-06 | CT_ITS ---
EXAMINATION: CT CHEST LOW-DOSE SCREENING WITHOUT CONTRAST HISTORY: Asymptomatic patient meeting criteria for lung screening. PATIENT PACK-YEAR HISTORY: 36 Current Smoker: Yes If former smoker, years since quitting: COMPARISON: None available. TECHNIQUE: Multidetector volumetric non-contrast CT imaging of the chest was performed using low dose screening CT technique. Axial thin section 0.625 mm reformations in soft tissue and lung windows were obtained. Sagittal and coronal reformations were obtained. Axial MIP images were also created and reviewed. RECONSTRUCTED WIDTH: 1.25 mm x 1.25 mm TOTAL EXAM DLP: 36 mGy-cm CTDIvol: 0.82 L mGy FINDINGS: LUNGS: Mild centrilobular emphysema. 3 mm nodule left upper lobe on image 126. No focal consolidation. Central airways are patent. PLEURA: No pleural effusion. LYMPH NODES: No bulky mediastinal, hilar or axillary lymphadenopathy. MEDIASTINUM: Great vessels are of normal caliber. Heart size is normal. No pericardial effusion. CORONARY ARTERY CALCIFICATIONS: None. CHEST WALL/BREASTS: No acute abnormality. UPPER ABDOMEN: This study was performed without contrast and with lower than standard dose, reducing the sensitivity for detection of small lesions in the upper abdomen. Nodular thickening of bilateral adrenal glands. OSSEOUS STRUCTURES: No destructive bone lesion. CT/CT lung screening IMPRESSION: 3 mm left upper lobe pulmonary nodule. LUNG-RADS CATEGORY ASSESSMENT: 2. Benign appearance or behavior. Nodules with a very low likelihood of becoming a clinically active cancer due to size or lack of growth. Continue annual screening with low-dose CT in 12 months. Probability of malignancy less than 1%. INCIDENTAL FINDINGS (S CATEGORY): Finding: No incidental findings. Significance category: Normal or normal variant. RECOMMENDATION: Low dose lung CT. overall in 1 year. Visual estimate of coronary calcified plaque burden: None. However, this exam cannot replace a dedicated cardiac CT calcium score for accurate assessment. LUNG-RADS CATEGORY: 2 -- BENIGN
== END 2023-05-06 14:42 | disposition home or self-care (01) ==
LOC: HO.CT 14:41
PROVIDERS: PCP Family Medicine; Visit Provider Physician Assistant Medical
DX: Z12.2 Encounter for screening for malignant neoplasm of respiratory organs (principal); F17.210 Nicotine dependence, cigarettes, uncomplicated
CPT/HCPCS: 71271; G0296

== ENCOUNTER 2023-05-21 06:50 | Outpatient (REF) | payer OTHER, SELFPAY | END 2023-05-21 06:51 | disposition home or self-care (01) | LOC: HO.HMGCLDS 06:50 | PROVIDERS: PCP Family Medicine; Visit Provider Family Medicine | DX: E11.9 Type 2 diabetes mellitus without complications (principal) | CPT/HCPCS: 36415; 80061 ==

== ENCOUNTER 2023-08-15 19:13 | Inpatient (IN) | payer OTHER, SELFPAY ==
--- NOTE | ~2023-08-15 | CT_ITS ---
EXAMINATION: CT ABDOMEN AND PELVIS WITH CONTRAST CLINICAL INFORMATION: Abdominal pain. COMPARISON: 05/29/2015. TECHNIQUE: Multidetector volumetric images were obtained from the superior aspect of the liver through the pubic symphysis following administration 85 mL of Omnipaque 350 intravenous contrast. Sagittal and coronal reformatted images were obtained on the technologist's workstation. Oral contrast: No This CT examination was performed using dose optimization techniques as appropriate, variously including the following: *Automated exposure control *Adjustment of mA and/or kV according to patient size (this includes techniques or standardized protocols for targeted exams where dose is matched to indication/reason for exam; i.e. extremities or head) *Use of iterative reconstruction technique DLP: 319 mGy-cm FINDINGS: LUNG BASES: There is atelectatic change and/or scarring at both lung bases. LIVER, GALLBLADDER, AND BILIARY TREE: The liver is normal in size, shape, and attenuation. No focal hepatic lesion or biliary ductal dilatation is present. The gallbladder is unremarkable with no evidence of radiopaque gallstones, gallbladder wall thickening, or obvious pericholecystic inflammatory changes. PANCREAS: Unremarkable. SPLEEN: Unremarkable. ADRENAL GLANDS: Bilateral adrenal gland thickening and nodularity is again seen. KIDNEYS AND URETERS: The kidneys are normal in size, shape, and attenuation. No hydronephrosis, hydroureter, or calculi seen. No perinephric stranding. Multiple bilateral scattered renal cysts measuring up to 1.7 cm. BLADDER: Unremarkable. GASTROINTESTINAL TRACT: The appendix is not seen. There are diverticula of the descending and the sigmoid colon. There is an area of thickening of the mid sigmoid colon with some apparent infiltrative change and adjacent collection extending into the oblique abdominal musculature measuring 7 x 3.6 x 4 cm. There is also thickening of the proximal sigmoid colon and some apparent surrounding infiltration. ABDOMINAL WALL: No significant hernia is appreciated. LYMPH NODES: Normal. VASCULAR: There is atherosclerotic plaque of the abdominal aorta and proximal branches. PELVIC VISCERA: Unremarkable. OSSEOUS STRUCTURES: Unremarkable. CT/CT abdomen pelvis w IV con IMPRESSION: Diverticulosis of the descending and the sigmoid colon with acute diverticulitis of the mid descending colon without adjacent collection extending into the left oblique abdominal musculature measuring 7 x 3.6 x 4 cm likely a diverticular abscess. There is also thickening of the proximal sigmoid colon and some apparent surrounding infiltration also suggesting early diverticulitis. Fleischner guidelines were followed
--- NOTE | 2023-08-15 19:47 | ED_ITS ---
HPI - General Adult General Chief complaint: Abdominal Pain Stated complaint: Left side pain Time Seen by Provider: 08/15/23 23:47 Source: patient and family (patient's ) Mode of arrival: ambulatory Limitations: no limitations History of Present Illness HPI narrative: Patient is a 53 year old assigned female at with a history of tobacco use presenting to the emergency department today with left lower quadrant abdominal pain. Patient states that over the last month she has noticed a lump developing in her left lower abdomen and is having pain there. Patient states that she is having normal bowel movements. Patient denies any dizziness, lightheadedness, nausea, vomiting, fever, chills, blurry vision, double vision, loss of vision, chest pain, difficulty breathing, shortness of breath, back pain, night sweats, pain with urination, increased urinary frequency, increased urinary urgency, blood in her urine or stool, syncope or a near syncopal episode, recent trauma or falls, bowel incontinence, bladder incontinence, bowel retention, bladder retention, or any other complaints at this time. Onset (ago): month(s) (1) Location: abdomen and left Radiation: non-radiation Severity: mild Severity scale (1-10): 4 Relieving factors: none Exacerbating factors: none Associated symptoms: denies other symptoms Treatments prior to arrival: none Related Data Home Medications Medication Instructions Recorded Confirmed atorvastatin 20 mg tablet 20 mg PO BEDTIME 02/03/21 08/16/23 metformin 500 mg tablet,extended 1,000 mg PO BEDTIME 02/03/21 08/16/23 release 24 hr metoprolol succinate 25 mg 25 mg PO DAILY 11/10/22 08/16/23 tablet,extended release 24 hr metformin 500 mg tablet 500 mg PO QAM 08/16/23 08/16/23 Allergies Allergy/AdvReac Type Severity Reaction Status Date / Time mushroom Allergy Intermediate DRY HEAVES Verified 08/16/23 12:09 seafood Allergy Intermediate Nausea and Verified 08/16/23 12:09 Vomiting Review of Systems 2 Constitutional: Constitutional: Reports no additional constitutional complaints, Denies chills, Denies fever(s) and Denies night sweats Eyes: Eyes: Reports no additional eye complaints, Denies blurry vision, Denies change in vision, Denies diplopia, Denies eye discharge, Denies loss of vision and Denies eye pain ENT: Denies dizziness Cardiovascular: Cardiovascular: Reports no additional cardiovascular complaints, Denies chest pain, Denies lightheadedness, Denies Loss of Consciousness and Denies dyspnea Respiratory: Respiratory: Reports no additional respiratory complaints and Denies dyspnea Gastrointestinal: Gastrointestinal: Reports no additional gastrointestinal complaints, Reports abdominal pain, Denies melena, Denies hematochezia, Denies change in bowel habits and Denies change in stool character Genitourinary: Genitourinary: Denies hematuria, Denies urinary frequency, Denies dysuria, Denies urinary incontinence, Denies urinary hesitancy and Denies urinary urgency Musculoskeletal: Musculoskeletal: Reports no additional musculoskeletal complaints, Denies numbness and Denies tingling Neurologic: Denies dizziness, Denies loss of vision, Denies numbness and Denies tingling Psychiatric: Psychiatric: Reports no additional psychiatric complaints Endocrine: Endocrine: Reports no additional endocrine complaints Hematologic/Lymphatic: Hematologic/Lymphatic: Reports no additional hematologic/lymphatic complaints Allergic/Immunologic: Allergic/Immunologic: Reports no additional allergic/immunologic complaints PMFSH Past Medical History Attestation statement: The following information was validated with the patient. (patient's validated all information.) Source: old records reviewed, obtained from family (patient's provided additional history and confirmed the history provided by the patient) and nursing notes reviewed Onset Date is defined in the Problem List Problems that require an onset date and time if occurred within 24 hrs of arrival to the ED Aortic Dissection and Rupture; Neurologic impairment; Cardiopulmonary Arrest; Endotracheal Intubation; Insertion or Replacement of Mechanical Circulatory Assist Device Medical History Nicotine dependence, cigarettes, uncomplicated GERD (gastroesophageal reflux disease) Hyperlipidemia Type 2 diabetes mellitus (~2013) Surgical History History of surgical removal of ganglion cyst (~1996) History of excision of hemangioma (~2021) History of colonoscopy (~2020) History of excision of epidermal inclusion cyst (~2022) History of tubal ligation (~1994) History of elbow surgery (~2013) Social History Social History Household Members: Spouse Housing: House Do you presently have visiting nurse or other home services: No Patient Tobacco Use Status: Current everyday Tobacco user Tobacco use type: Cigarette Cigarette Packs Per Day: 1 Cigarettes Per Day: 20.0 Years Smoked: (onset 16yo, 1ppd x 36yrs, 30+PYH) Second Hand Smoke Exposure: No service: No Current occupational status: employed 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 Physical Exam ED Vital Signs: Vital Signs - 24 hr 08/15/23 19:49 08/16/23 00:57 Temperature 99.7 F Pulse Rate 109 H 110 H Respiratory Rate 16 18 Blood Pressure 117/76 107/63 Pulse Oximetry 98 96 Oxygen Delivery Method Room Air BMI result Body Mass Index 23.2 Const General: cooperative, no acute distress, alert and awake Nutritional Appearance: well nourished Orientation/consciousness: patient oriented x3 Limitations: no limitations HENMT Head: Yes normal to inspection and Yes atraumatic Ears: hearing grossly normal bilaterally and external ears normal General nose exam: Normal external nose present, no nasal discharge noted and no epistaxis Face and sinus: Yes normal facial exam, No abrasion and No laceration Mouth: Normal oral and palatal mucosa present, no drooling and no muffled voice Eyes General: appearance normal, both eyes and all related structures Periorbital: periorbital findings normal Eyelids: Yes eyelids normal Conjunctivae: conjunctivae normal Pupils: Equal, round and reactive pupils present EOM: EOMs intact bilaterally Neck Neck: Yes normal visual inspection, Yes full ROM and Yes no lymphadenopathy Chest Chest palpation & inspection: normal inspection of the chest Resp Effort & Inspection: normal respiratory effort and able to speak in complete sentences GI Inspection: Yes normal to inspection Palpation (GI): Soft to palpation, Firmness to palpation present (GI) in the LLQ (mass can be appreciated), nontender and no guarding Neuro General: patient oriented x3 and moves all extremities Cranial nerves: Yes Equal, round and reactive pupils present Cognition (Neuro): normal cognition Motor exam (neuro): 5/5 motor strength present throughout Sensory Exam: Normal double simultaneous stimulation for sensation Coordination: [id number] test normal Extrem General: Yes normal to inspection, Yes full ROM and Yes capillary refill normal Psych Appearance: grossly normal Mental Status: mental status grossly normal Affect: normal affect Attitude: cooperative Thought process: Normal thought process present Thought content: Normal thought content present Insight: Good insight present (Psych) Course Course Course Narrative: This is a rapid medical exam. deferred additional HPI, ROS, PE to primary provider. 53yo female with history of HLD, HLD, pre-diabetes here with complaints left sided abdominal pain and concern for bump x 1 month. Denies vomiting, diarrhea, constipation, urinary symptoms. Has not seen her PCP for this. Will obtain labs, UA VSS Medications Administered Generic Name Dose Route Start Last Admin Trade Name Freq PRN Reason Stop Dose Admin Atorvastatin Calcium 20 mg 08/16/23 21:00 08/16/23 19:40 Atorvastatin Calcium 20 Mg Tablet PO 20 mg BEDTIME LOLITA Administration Piperacillin Sod/Tazobactam 100 mls @ 200 mls/hr 08/16/23 04:15 08/17/23 06:09 Sod 4.5 gm/ Sodium Chloride IV Infused 0000,0600,1200,1800 LOLITA Infusion Insulin Human Lispro 0 unit 08/16/23 04:15 08/17/23 06:22 Insulin Lispro 100 Unit/Ml 3 Ml Vial SUBCUT Not Given 0000,0600,1200,1800 [facility] Protocol Morphine Sulfate 2 mg 08/16/23 06:40 08/17/23 05:38 Morphine Sulfate 2 Mg/Ml Cartridge IVPUSH 2 mg Q4H PRN Administration Pain, Severe (Pain Scale 7-10) Protocol Sodium Chloride 3 ml 08/16/23 08:00 08/17/23 00:10 0.9 % Sodium Chloride Flush 3 Ml Syringe IVFLUSH 3 ml QSHIFT LOLITA Administration Discontinued Medications Generic Name Dose Route Start Last Admin Trade Name Freq PRN Reason Stop Dose Admin Ceftriaxone Sodium 1 gm/ 50 mls @ 100 mls/hr 08/16/23 01:37 08/16/23 06:19 Sodium Chloride IV 08/16/23 02:06 Infused ONCE ONE Infusion Metronidazole 500 mg in 100 mls @ 100 mls/hr 08/16/23 01:37 08/16/23 06:19 Flagyl IV 08/16/23 02:36 Infused ONCE ONE Infusion Sodium Chloride 1,000 mls @ 999 mls/hr 08/16/23 03:59 08/16/23 06:19 Ns IV 08/16/23 04:59 Infused .Q1H1M ONE Infusion Lactated Ringer's 1,000 mls @ 100 mls/hr 08/16/23 04:03 08/16/23 15:32 Lr IVCONT 08/16/23 14:02 Infused .Q10H ONE Infusion Iohexol 85 ml 08/16/23 01:42 08/16/23 01:42 Iohexol 350 Mg/Ml 100 Ml Infus..Btl IV 08/16/23 01:43 85 ml ONCE ONE Administration Morphine Sulfate 4 mg 08/16/23 00:07 08/16/23 00:58 Morphine Sulfate 4 Mg/Ml Cartridge IVPUSH 08/16/23 00:08 4 mg ONCE ONE Administration Protocol Ondansetron HCl 4 mg 08/16/23 00:07 08/16/23 00:59 Ondansetron Hcl 4 Mg/2 Ml Vial IVPUSH 08/16/23 00:08 4 mg ONCE ONE Administration Medical Decision Making Medical Decision Making [facility] Narrative: Patient is a 53 year old assigned female at with a history of tobacco use presenting to the emergency department today with left lower quadrant pain and a lump. Patient's physical exam showed a palpable left lower quadrant abdominal mass. Patient's blood work showed a markedly elevated WBC count of 20.3 but was otherwise unremarkable. Patient's urine showed a possible UTI. Patient's CT abdomen pelvis showed a diverticular abscess. Patient's clinical presentation is not consistent with sepsis (@0210). Patient given IV Ceftriaxone and Flagyl. I spoke to the hospitalist team who agreed to admission. I explained my physical exam findings as well as all test results to the patient and the patient's . I answered all questions asked by the patient and the patient's . Patient and the patient's verbalized agreement and understanding with this treatment plan and admission. Differential Diagnosis Differential Diagnoses: The differential diagnosis associated with the presentation includes Abdominal pain Abdominal abscess Abdominal mass UTI Admission/Observation Consideration of admission/observation: Escalation of care including admission/observation considered Patient admitted. Consult Healthcare Provider Management of the patient was discussed with: Hospitalist (agreed to admission.) Lab Data [facility] Lab Attestation statement: I reviewed the patient's lab results. My interpretation of these results are in the MDM Rationale portion of this note. 08/16/23 05:38 08/16/23 05:38 Labs: Lab Results 08/15/23 08/15/23 08/16/23 Range/Units 22:03 22:16 00:39 WBC 20.3 H (4.8-10.8) X10*3/uL RBC 5.23 (4.20-5.50) X10*6/uL Hgb 14.5 (12.0-16.0) g/dl Hct 44.0 (37.0-47.0) % MCV 84.1 (80.0-98.0) fL MCH 27.7 (27.0-33.0) pg MCHC 33.0 (31.0-35.0) g/dl RDW 14.1 (11.0-16.0) % Plt Count 473 H D (160-400) X10*3/uL MPV 8.1 L (9.4-12.3) fL Immature Gran % (Auto) 0.5 H (0.0-0.4) % Neut % (Auto) 69.9 (45-73) % Lymph % (Auto) 21.6 (20-40) % [place] % (Auto) 7.4 (2-11) % Eos % (Auto) 0.3 (0-4) % Baso % (Auto) 0.3 (0-2) % Lymph # (Auto) 4.4 (1.2-4.9) X10*3/uL [place] # (Auto) 1.5 H (0.1-1.2) X10*3/uL Eos # (Auto) 0.1 (0.0-0.4) X10*3/uL Baso # (Auto) 0.1 (0.0-0.2) X10*3/uL Abs Immat Gran (auto) 0.11 H (0.00-0.03) X10*3/uL Absolute Neuts (auto) 14.2 H (2.0-8.3) x10*3/uL Absolute Nucleated RBC 0.000 (0.0-0.012) X10*3/uL Nucleated RBC % (auto) 0.0 (0.0-0.2) /100WBC Sodium 134 L (135-145) mmol/L Potassium 4.4 (3.3-5.1) mmol/L Chloride 99 (96-108) mmol/L Carbon Dioxide 24 (22-29) mmol/L Anion Gap 15 (12-20) BUN 8 L (9-16) mg/dL Creatinine 0.68 (0.5-1.4) mg/dL Estim Creat Clear Calc 67.9 Estimated GFR > 60 Random Glucose 163 H (60-115) mg/dL Lactic Acid 1.6 (0.5-2.0) mmol/L Calcium 9.9 D (8.4-10.2) mg/dL Total Bilirubin 0.7 (0.0-1.0) mg/dL Direct Bilirubin 0.4 (0.0-0.5) mg/dL AST 10 (5-31) U/L ALT 8 (0-31) U/L Alkaline Phosphatase 107 (39-117) U/L Total Protein 7.7 (6.5-8.0) g/dL Albumin 3.9 (3.5-5.0) g/dL Lipase 36 (8-78) U/L Urine Color Yellow Urine Appearance Cloudy Urine pH 5.5 (5.0-9.0) Ur Specific [place] 1.020 (1.005-1.025) Urine Protein Negative (Neg-Trace) mg/dL Urine Glucose (UA) Negative (Negative) mg/dL Urine Ketones Negative (Negative) mg/dL Urine Blood Small (1+) H (Negative) Urine Nitrite Negative (Negative) Ur Leukocyte Esterase Small (1+) H (Negative) Urine RBC 3-5 H (0-2) /HPF Urine WBC 6-10 H (0-5) /HPF Ur Squamous Epith Cells 11-20 (0-2) /HPF Urine Bacteria 4+ (None Seen) Hyaline Casts 0-2 (0-2) /LPF Independent Interpretation I performed an independent interpretation of an: CT Scan Interpretation: My interpretation is in agreement with the radiologist's impression of this imaging study. - EXAMINATION: CT ABDOMEN AND PELVIS WITH CONTRAST CLINICAL INFORMATION: Abdominal pain. COMPARISON: 05/29/2015. TECHNIQUE: Multidetector volumetric images were obtained from the superior aspect of the liver through the pubic symphysis following administration 85 mL of Omnipaque 350 intravenous contrast. Sagittal and coronal reformatted images were obtained on the technologist's workstation. Oral contrast: No This CT examination was performed using dose optimization techniques as appropriate, variously including the following: *Automated exposure control *Adjustment of mA and/or kV according to patient size (this includes techniques or standardized protocols for targeted exams where dose is matched to indication/reason for exam; i.e. extremities or head) *Use of iterative reconstruction technique DLP: 319 mGy-cm FINDINGS: LUNG BASES: There is atelectatic change and/or scarring at both lung bases. LIVER, GALLBLADDER, AND BILIARY TREE: The liver is normal in size, shape, and attenuation. No focal hepatic lesion or biliary ductal dilatation is present. The gallbladder is unremarkable with no evidence of radiopaque gallstones, gallbladder wall thickening, or obvious pericholecystic inflammatory changes. PANCREAS: Unremarkable. SPLEEN: Unremarkable. ADRENAL GLANDS: Bilateral adrenal gland thickening and nodularity is again seen. KIDNEYS AND URETERS: The kidneys are normal in size, shape, and attenuation. No hydronephrosis, hydroureter, or calculi seen. No perinephric stranding. Multiple bilateral scattered renal cysts measuring up to 1.7 cm. BLADDER: Unremarkable. GASTROINTESTINAL TRACT: The appendix is not seen. There are diverticula of the descending and the sigmoid colon. There is an area of thickening of the mid sigmoid colon with some apparent infiltrative change and adjacent collection extending into the oblique abdominal musculature measuring 7 x 3.6 x 4 cm. There is also thickening of the proximal sigmoid colon and some apparent surrounding infiltration. ABDOMINAL WALL: No significant hernia is appreciated. LYMPH NODES: Normal. VASCULAR: There is atherosclerotic plaque of the abdominal aorta and proximal branches. PELVIC VISCERA: Unremarkable. OSSEOUS STRUCTURES: Unremarkable. CT/CT abdomen pelvis w IV con IMPRESSION: Diverticulosis of the descending and the sigmoid colon with acute diverticulitis of the mid descending colon without adjacent collection extending into the left oblique abdominal musculature measuring 7 x 3.6 x 4 cm likely a diverticular abscess. There is also thickening of the proximal sigmoid colon and some apparent surrounding infiltration also suggesting early diverticulitis. Fleischner guidelines were followed Dictated By: Colton Hansen Signed By: Electronically signed by Colton Hansen 08/16/23 0321 Radiology Impression Discussion of test interpretation with radiology: I have reviewed the radiologist's reading. Independent Historian Clinical information obtained from an independent historian. History obtained from or confirmed by: Spouse (patient's provided additional history and confirmed the history provided by the patient.) Critical Care Time Critical Care Time Critical Care Time: Yes Total Critical Care Time: 45 Attestation: I spent 45 minutes of Critical Care Time with this patient. This does not include time spent on separately reported billable procedures. Discharge Plan Discharge Clinical Impression: Urinary tract infection, Abdominal pain, Abdominal mass Patient Disposition: Admitted As Inpatient Interventions: Admission Worksheet (ED) Last Done: 08/16/23 05:57 Discharge Date/Time: 08/16/23 06:26
[2023-08-15 19:49] VITALS: BP 117/76; PULSE 109; RESP 16; TEMP 37.6; O2SAT 98; BMI 23.2
--- NOTE | 2023-08-15 22:06 | MHC.EDTECH ---
Patient blood drawn and sent to lab .
[2023-08-15 22:07] LABS: MANUAL DIFF FLAG NO
[2023-08-15 22:10] LABS: Basophils Absolute Auto 0.1 X10*3/uL (0.0-0.2); Basophils Percent Auto 0.3 % (0-2); Eosinophils Absolute Auto 0.1 X10*3/uL (0.0-0.4); Eosinophils Percent Auto 0.3 % (0-4); Hemoglobin 14.5 g/dl (12.0-16.0); Imm Gran Abs Auto 0.11 X10*3/uL (0.00-0.03); Imm Gran Pct Auto 0.5 % (0.0-0.4); Lymphocytes Absolute Auto 4.4 X10*3/uL (1.2-4.9); Lymphocytes Percent Auto 21.6 % (20-40); Mean Corpuscular Hemoglobin 27.7 pg (27.0-33.0); Mean Corpuscular Volume 84.1 fL (80.0-98.0); Mean Platelet Volume 8.1 fL (9.4-12.3); Monocytes Absolute Auto 1.5 X10*3/uL (0.1-1.2); Monocytes Percent Auto 7.4 % (2-11); Neutrophils Absolute Auto 14.2 x10*3/uL (2.0-8.3); Neutrophils Percent Auto 69.9 % (45-73); Platelet Count 473 X10*3/uL (160-400); Red Blood Count 5.23 X10*6/uL (4.20-5.50); Red Cell Distribution Width 14.1 % (11.0-16.0); White Blood Count 20.3 X10*3/uL (4.8-10.8)
[2023-08-15 22:23] LABS: Alanine Aminotransferase 8 U/L (0-31); Albumin Level 3.9 g/dL (3.5-5.0); Alkaline Phosphatase 107 U/L (39-117); Anion Gap 15 (12-20); Aspartate Amino Transferase 10 U/L (5-31); Bilirubin Direct 0.4 mg/dL (0.0-0.5); Bilirubin Total 0.7 mg/dL (0.0-1.0); Blood Urea Nitrogen 8 mg/dL (9-16); Calcium 9.9 mg/dL (8.4-10.2); Carbon Dioxide 24 mmol/L (22-29); Chloride 99 mmol/L (96-108); Creatinine Clr Calc Pharmacy 67.9; Estimated Glomerular Filt Rate > 60; Glucose Random 163 mg/dL (60-115); Lipase 36 U/L (8-78); Potassium 4.4 mmol/L (3.3-5.1); Sodium 134 mmol/L (135-145); Total Protein 7.7 g/dL (6.5-8.0)
[2023-08-15 22:35] LABS: Appearance Urine Cloudy; Color Urine Yellow; Glucose Urine UA Negative (Negative); Leukocyte Esterase Urine Small (1+) (Negative); Nitrite Urine Negative (Negative); PH 5.5 (5.0-9.0); UMIC TRIGGER UACC YES; Urine Blood Small (1+) (Negative); Urine Ketones Negative (Negative); Urine Protein Negative (Neg-Trace)
[2023-08-15 22:48] LABS: Bacteria Urine 4+ (None Seen); Hyaline Casts Urine 0-2 /LPF (0-2); UACC Culture Trigger YES
[2023-08-16] VITALS (9 sets, daily range): BP systolic 92–108; BP diastolic 51–64; PULSE 88–110; RESP 14–18; TEMP 36–37.2; O2SAT 93–99
[2023-08-16 00:58] LABS: Lactic Acid 1.6 mmol/L (0.5-2.0)
[2023-08-16] MEDS: Morphine Sulfate 4 MG/ML CARTRIDGE IVPUSH (00:58)
[2023-08-16] MEDS: ondansetron HCL 4 MG/2 ML VIAL IVPUSH (00:59)
--- NOTE | 2023-08-16 01:19 | PC.NURSE ---
Pt to CT at this time.
[2023-08-16] MEDS: iohexoL 350 MG/ML 100 ML INFUS..BTL 85 ML IV (01:42)
--- NOTE | 2023-08-16 02:32 | MHC.EDTECH ---
Hourly rounds and vitals completed, patients BP was low RN aware. Belonging list completed,and copy placed in chart. Call singleton within reach
[2023-08-16] MEDS: cefTRIAXone sodium 1 GM in 0.9 % Sodium Chloride 50 ML IV (02:33)
[2023-08-16] MEDS: metroNIDAZOLE/NS 500 MG/100 ML PIGGYBACK 100 MG IV (03:18)
--- NOTE | 2023-08-16 04:03 | PM.IMHP ---
History of Present Illness Date of Service: 08/16/23 Chief Complaint: Abdominal pain This is 53-year-old female with pertinent history of pzg-cjzvmim-gyddrwypa diabetes mellitus, mixed hyperlipidemia, tobacco use disorder who presents to the emergency department for evaluation of abdominal pain. Patient states she has been having on and off left lower quadrant abdominal pain that has been ongoing for the last 1 month. Patient states it has been progressive since the last 1 week. Also noticed a lump noticed in the left lower quadrant of the abdomen. No history of similar pain in the past. No fever, chills, nausea, vomiting, chest discomfort, shortness of breath, changes in urinary habits. In the emergency department, imaging concerning for diverticulitis with diverticular abscess. Review of Systems Constitutional: Constitutional: Reports no additional constitutional complaints Cardiovascular: Cardiovascular: Reports no additional cardiovascular complaints Respiratory: Respiratory: Reports no additional respiratory complaints Gastrointestinal: Gastrointestinal: Reports abdominal pain Genitourinary: Genitourinary: Reports no additional female genitourinary complaints [facility] Medical History Nicotine dependence, cigarettes, uncomplicated GERD (gastroesophageal reflux disease) Hyperlipidemia Type 2 diabetes mellitus (~2013) Pertinent family history: No family history of early CAD Surgical History History of surgical removal of ganglion cyst (~1996) History of excision of hemangioma (~2021) History of colonoscopy (~2020) History of excision of epidermal inclusion cyst (~2022) History of tubal ligation (~1994) History of elbow surgery (~2013) Social History Patient Tobacco Use Status: Current everyday Tobacco user Tobacco use type: Cigarette Cigarette Packs Per Day: 1 Cigarettes Per Day: 20.0 Years Smoked: (onset 16yo, 1ppd x 36yrs, 30+PYH) Smoked in Last 30 Days: Yes Second Hand Smoke Exposure: No Use of substances other than those prescribed or required for medical reasons: No Advance Directives: No Advance Directives Information Provided: No Patient : No Current occupational status: employed 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 Allergies Allergy/AdvReac Type Severity Reaction Status Date / Time mushroom Allergy Intermediate DRY HEAVES Verified 02/07/23 08:57 seafood Allergy Intermediate Nausea and Verified 02/07/23 08:57 Vomiting Active Medications: Current Medications Sodium Chloride (Ns) 1,000 mls @ 999 mls/hr IV .Q1H1M ONE Stop: 08/16/23 04:59 Piperacillin Sod/Tazobactam (Sod 4.5 gm/ Sodium Chloride) 100 mls @ 200 mls/hr IV Q6H LOLITA Home Medications Medication Instructions Recorded Confirmed Last Taken Type atorvastatin 20 mg tablet 20 mg PO BEDTIME 02/03/21 08/16/23 Unknown History metformin 500 mg tablet,extended 1,000 mg PO BEDTIME 02/03/21 08/16/23 Unknown History release 24 hr metoprolol succinate 25 mg 25 mg PO DAILY 11/10/22 08/16/23 01/31/23 History tablet,extended release 24 hr metformin 500 mg tablet 500 mg PO QAM 08/16/23 08/16/23 Unknown History Physical Exam Vital Signs and Narrative: Vital Signs: Last Vital Signs Temp 98.9 F 08/16/23 02:25 Pulse 98 08/16/23 02:25 Resp 18 08/16/23 02:25 BP 97/64 08/16/23 02:25 Pulse Ox 99 08/16/23 02:25 O2 Del Method Room Air 08/16/23 02:25 BMI result Body Mass Index 23.2 Middle-aged female lying in bed in no distress Neck supple, no JVD Regular rate and rhythm, S1-S2 heard Regular breath sounds bilaterally, no wheezing or crackles appreciated Abdomen with lump present in the left lower quadrant, mild tenderness to deep palpation, no guarding, no rigidity, no rebound tenderness Patient is awake, alert and oriented to self, place, time and person ; no focal motor deficit Psych: Normal mood No pedal edema Results Labs 08/15/23 22:03 08/15/23 22:03 Labs: Laboratory Results - last 24 hr 08/15/23 08/15/23 08/16/23 22:03 22:16 00:39 MCV 84.1 MCH 27.7 MCHC 33.0 RDW 14.1 Plt Count 473 H D MPV 8.1 L Immature Gran % (Auto) 0.5 H Neut % (Auto) 69.9 Lymph % (Auto) 21.6 [place] % (Auto) 7.4 Eos % (Auto) 0.3 Baso % (Auto) 0.3 Lymph # (Auto) 4.4 [place] # (Auto) 1.5 H Eos # (Auto) 0.1 Baso # (Auto) 0.1 Abs Immat Gran (auto) 0.11 H Absolute Neuts (auto) 14.2 H Absolute Nucleated RBC 0.000 Nucleated RBC % (auto) 0.0 Anion Gap 15 Estim Creat Clear Calc 67.9 Estimated GFR > 60 Random Glucose 163 H Lactic Acid 1.6 Calcium 9.9 D Total Bilirubin 0.7 Direct Bilirubin 0.4 AST 10 ALT 8 Alkaline Phosphatase 107 Total Protein 7.7 Albumin 3.9 Lipase 36 Urine Color Yellow Urine Appearance Cloudy Urine pH 5.5 Ur Specific [place] 1.020 Urine Protein Negative Urine Glucose (UA) Negative Urine Ketones Negative Urine Blood Small (1+) H Urine Nitrite Negative Ur Leukocyte Esterase Small (1+) H Urine RBC 3-5 H Urine WBC 6-10 H Ur Squamous Epith Cells 11-20 Urine Bacteria 4+ Hyaline Casts 0-2 Imaging Radiologist's Impressions: Impressions Abdomen/Pelvis CT 08/16/23 01:35 IMPRESSION: Diverticulosis of the descending and the sigmoid colon with acute diverticulitis of the mid descending colon without adjacent collection extending into the left oblique abdominal musculature measuring 7 x 3.6 x 4 cm likely a diverticular abscess. There is also thickening of the proximal sigmoid colon and some apparent surrounding infiltration also suggesting early diverticulitis. Fleischner guidelines were followed Assessment and Plan (1) Diverticulitis: Status: Acute Plan This is 53-year-old female with pertinent history of qiu-jlwrrvh-fhgvuepcy diabetes mellitus, mixed hyperlipidemia, tobacco use disorder who presents to the emergency department for evaluation of abdominal pain. #. Sepsis due to acute diverticulitis with a diverticular abscess: Resuscitating with IV crystalloids. Lactic acid and blood culture obtained. Initiating empiric IV antibiotics. Consulted General surgery, appreciate assistance. Will keep patient NPO for bowel rest. #. Dlt-viqmnmj-gsenxzruh diabetes mellitus: Initiating Accu-Cheks with sliding scale insulin every 6 hours #. Mixed hyperlipidemia: On statin #. Asymptomatic bacteriuria: On antibiotics as above DVT prophylaxis: Mechanical Full code Admit as inpatient and will require two night minimum hospital stay for IV antibiotics (as above), which is not possible in a lesser acute setting. Specialist consult pending Quality Stroke Does the patient have a stroke diagnosis?: No VTE Prior VTE?: No VTE Risk Level:: Medical - moderate - high VTE Device Contraindication: N/A - Device Ordered VTE Drug Contraindication: Treatment Not Indicated
[2023-08-16] MEDS: Piperacillin Sodium/Tazobactam 4.5 GM in 0.9 % Sodium Chloride 100 ML IV ×3 (04:23→17:34)
[2023-08-16] MEDS: 0.9 % Sodium Chloride 1,000 ML 999 ML IV (04:25)
[2023-08-16 04:26] LABS: Glucose, Whole Blood 149 mg/dL (60-115)
--- NOTE | 2023-08-16 04:26 | MHC.EDTECH ---
Hourly rounds and vitals completed,patients BP is low 99/57 RN is aware. Patient ambulated to the bathroom with a steady gait, POC was taken and is 149. Patient is resting st this time and call singleton within reach
--- NOTE | 2023-08-16 05:29 | MHC.EDTECH ---
Hourly rounds completed,patient is sleeping,resp.rate within normal limits ,and call singleton within reach.
[2023-08-16] MEDS: Lactated Ringers 1,000 ML 100 ML IVCONT (05:32)
[2023-08-16 06:18] LABS: MANUAL DIFF FLAG NO
[2023-08-16 06:25] LABS: Basophils Absolute Auto 0.1 X10*3/uL (0.0-0.2); Basophils Percent Auto 0.4 % (0-2); Eosinophils Absolute Auto 0.1 X10*3/uL (0.0-0.4); Eosinophils Percent Auto 0.8 % (0-4); Hematocrit 38.2 % (37.0-47.0); Hemoglobin 12.3 g/dl (12.0-16.0); Imm Gran Abs Auto 0.07 X10*3/uL (0.00-0.03); Imm Gran Pct Auto 0.5 % (0.0-0.4); Lymphocytes Absolute Auto 3.8 X10*3/uL (1.2-4.9); Lymphocytes Percent Auto 26.3 % (20-40); Mean Corpuscular HGB Conc 32.2 g/dl (31.0-35.0); Mean Corpuscular Hemoglobin 27.7 pg (27.0-33.0); Mean Platelet Volume 8.5 fL (9.4-12.3); Monocytes Absolute Auto 1.5 X10*3/uL (0.1-1.2); Monocytes Percent Auto 10.3 % (2-11); Neutrophils Absolute Auto 8.9 x10*3/uL (2.0-8.3); Neutrophils Percent Auto 61.7 % (45-73); Platelet Count 440 X10*3/uL (160-400); Red Blood Count 4.44 X10*6/uL (4.20-5.50); Red Cell Distribution Width 14.1 % (11.0-16.0); White Blood Count 14.5 X10*3/uL (4.8-10.8)
[2023-08-16 06:47] LABS: Anion Gap 14 (12-20); Blood Urea Nitrogen 6 mg/dL (9-16); Calcium 8.6 mg/dL (8.4-10.2); Carbon Dioxide 27 mmol/L (22-29); Chloride 103 mmol/L (96-108); Creatinine Clr Calc Pharmacy 73.3; Estimated Glomerular Filt Rate > 60; Glucose Random 136 mg/dL (60-115); Potassium 4.6 mmol/L (3.3-5.1); Sodium 139 mmol/L (135-145)
--- NOTE | 2023-08-16 07:21 | PM.CNGS ---
History of Present Illness Consult details Consult date: 08/16/23 Requesting physician: Dylan Ruiz Narrative: 53-year-old female patient presenting with complaints of abdominal pain in the left lower quadrant. The pain began approximately 1 week ago and is associated with a mass in the left lower quadrant. She presented to the emergency department after the pain seemed a become quite severe. In the emergency department she was noted to have tenderness and a palpable mass in the left lower quadrant. She denies a previous history of similar symptoms and denies fever, chills, nausea, vomiting, or recent bowel changes. She reports a previous colonoscopy prior to the COVID pandemic and reports the colonoscopy was normal. Laboratories in the emergency department revealed an elevated WBC of [address] abdomen and pelvis reveals diverticulosis of the descending and sigmoid colon with acute diverticulitis in the mid descending colon without (sic) adjacent collection extending into the left oblique abdominal muscles suture measuring 7 x 3.6 x 4 cm likely a diverticular abscess. There is also thickening of the proximal close sigmoid colon and some apparent surrounding infiltration also to suggest early diverticulitis. Patient was in service and placed on IV antibiotics. Laboratories this morning does reveal an improvement in the WBC to 14.5. Review of Systems Review of Systems: Yes all other systems are reviewed and are negative Constitutional: Constitutional: Denies chills, Denies fever(s), Denies headache(s), Denies poor appetite and Denies weakness ENT: Denies headache(s) Cardiovascular: Cardiovascular: Denies chest pain, Denies irregular heart rhythm, Denies palpitations and Denies dyspnea Respiratory: Respiratory: Denies cough, Denies excessive phlegm production and Denies dyspnea Gastrointestinal: Gastrointestinal: Reports abdominal pain, Denies bloating, Denies change in bowel habits, Denies constipation, Denies heartburn, Denies diarrhea, Denies nausea and Denies vomiting Genitourinary: Genitourinary: Denies urinary frequency Musculoskeletal: Musculoskeletal: Denies back pain, Denies muscle weakness and Denies numbness Integumentary/Breasts: Skin/Breast: Denies changing lesions and Denies unusual bruising Neurologic: Denies headache(s), Denies numbness, Denies paresthesias and Denies weakness Psychiatric: Psychiatric: Denies anxiety and Denies depression Endocrine: Endocrine: Denies palpitations Hematologic/Lymphatic: Hematologic/Lymphatic: Denies lymphadenopathy [facility] Past Medical History Medical History Nicotine dependence, cigarettes, uncomplicated GERD (gastroesophageal reflux disease) Hyperlipidemia Type 2 diabetes mellitus (~2013) Surgical History Surgical History History of surgical removal of ganglion cyst (~1996) History of excision of hemangioma (~2021) History of colonoscopy (~2020) History of excision of epidermal inclusion cyst (~2022) History of tubal ligation (~1994) History of elbow surgery (~2013) Social History Social History Household Members: Spouse Housing: House Do you presently have visiting nurse or other home services: No Patient Tobacco Use Status: Current everyday Tobacco user Tobacco use type: Cigarette Cigarette Packs Per Day: 1 Cigarettes Per Day: 20.0 Years Smoked: (onset 16yo, 1ppd x 36yrs, 30+PYH) Second Hand Smoke Exposure: No Current occupational status: employed 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 Glucose (Glucose Gel 15 Gm Gel..Gram.) 15 gm PO Q15M PRN; Protocol PRN Reason: per Hypoglycemia Standing Ord. Piperacillin Sod/Tazobactam (Sod 4.5 gm/ Sodium Chloride) 100 mls @ 200 mls/hr IV 0000,0600,1200,1800 LOLITA Last Infusion: 08/16/23 06:19 Dose: Infused Lactated Ringer's (Lr) 1,000 mls @ 100 mls/hr IVCONT .Q10H ONE Stop: 08/16/23 14:02 Last Admin: 08/16/23 05:32 Dose: 100 mls/hr Insulin Human Lispro (Insulin Lispro 100 Unit/Ml 3 Ml Vial) 0 unit SUBCUT 0000,0600,1200,1800 [facility]; Protocol Last Admin: 08/16/23 04:24 Dose: Not Given Melatonin (Melatonin 3 Mg Tablet) 6 mg PO BEDTIME PRN PRN Reason: Insomnia Morphine Sulfate (Morphine Sulfate 2 Mg/Ml Cartridge) 2 mg IVPUSH Q4H PRN; Protocol PRN Reason: Pain, Severe (Pain Scale 7-10) Ondansetron HCl (Ondansetron Hcl 4 Mg/2 Ml Vial) 4 mg IVPUSH Q8H PRN PRN Reason: Nausea and Vomiting Sodium Chloride (0.9 % Sodium Chloride Flush 3 Ml Syringe) 3 ml IVFLUSH QSHIFT [facility] Home Medications Medication Instructions Recorded Confirmed Last Taken Type atorvastatin 20 mg tablet 20 mg PO BEDTIME 02/03/21 08/16/23 Unknown History metformin 500 mg tablet,extended 1,000 mg PO BEDTIME 02/03/21 08/16/23 Unknown History release 24 hr metoprolol succinate 25 mg 25 mg PO DAILY 11/10/22 08/16/23 01/31/23 History tablet,extended release 24 hr metformin 500 mg tablet 500 mg PO QAM 08/16/23 08/16/23 Unknown History Physical Exam Vital Signs: Vital Signs: Last Vital Signs Temp 97.7 F 08/16/23 06:27 Pulse 90 08/16/23 06:27 Resp 18 08/16/23 06:27 BP 92/51 L 08/16/23 06:27 Pulse Ox 95 08/16/23 06:27 O2 Del Method Room Air 08/16/23 06:27 BMI result Body Mass Index 23.2 Const: General: cooperative and no acute distress Nutritional Appearance: well nourished Orientation/consciousness: patient oriented x3 Limitations: no limitations HEENT: Head: Yes normocephalic and Yes atraumatic Ears: hearing grossly normal bilaterally Resp: Effort & Inspection: normal respiratory effort, no audible wheezes, no cough and no respiratory distress Cardio: Jugular venous distension: no JVD GI: Inspection: Yes normal to inspection Palpation (GI): Soft to palpation, Tenderness to palpation present (GI) in the LLQ and Palpable mass present (Mass is tender to palpation suggestive of an underlying abscess.) LLQ Skin: Other: Warm, dry, no rash Neuro: General: patient oriented x3 Extrem: General: Yes no clubbing, cyanosis or edema Results Labs 08/16/23 05:38 08/16/23 05:38 Labs: Abnormal lab results 08/15/23 08/15/23 08/16/23 Range/Units 22:03 22:16 04:22 WBC 20.3 H (4.8-10.8) X10*3/uL Plt Count 473 H D (160-400) X10*3/uL MPV 8.1 L (9.4-12.3) fL Immature Gran % (Auto) 0.5 H (0.0-0.4) % [place] # (Auto) 1.5 H (0.1-1.2) X10*3/uL Abs Immat Gran (auto) 0.11 H (0.00-0.03) X10*3/uL Absolute Neuts (auto) 14.2 H (2.0-8.3) x10*3/uL Sodium 134 L (135-145) mmol/L BUN 8 L (9-16) mg/dL POC Glucose 149 H (60-115) mg/dL Random Glucose 163 H (60-115) mg/dL Urine Blood Small (1+) H (Negative) Ur Leukocyte Esterase Small (1+) H (Negative) Urine RBC 3-5 H (0-2) /HPF Urine WBC 6-10 H (0-5) /HPF 08/16/23 Range/Units 05:38 WBC 14.5 H (4.8-10.8) X10*3/uL Plt Count 440 H (160-400) X10*3/uL MPV 8.5 L (9.4-12.3) fL Immature Gran % (Auto) 0.5 H (0.0-0.4) % [place] # (Auto) 1.5 H (0.1-1.2) X10*3/uL Abs Immat Gran (auto) 0.07 H (0.00-0.03) X10*3/uL Absolute Neuts (auto) 8.9 H (2.0-8.3) x10*3/uL Sodium (135-145) mmol/L BUN 6 L (9-16) mg/dL POC Glucose (60-115) mg/dL Random Glucose 136 H (60-115) mg/dL Urine Blood (Negative) Ur Leukocyte Esterase (Negative) Urine RBC (0-2) /HPF Urine WBC (0-5) /HPF Short CBC 08/15/23 08/16/23 Range/Units 22:03 05:38 WBC 20.3 H 14.5 H (4.8-10.8) X10*3/uL Hgb 14.5 12.3 (12.0-16.0) g/dl Hct 44.0 38.2 (37.0-47.0) % Plt Count 473 H D 440 H (160-400) X10*3/uL BMP 08/15/23 08/16/23 22:03 05:38 Sodium 134 L 139 Potassium 4.4 4.6 Chloride 99 103 Carbon Dioxide 24 27 BUN 8 L 6 L Creatinine 0.68 0.63 Calcium 9.9 D 8.6 D Liver Function 08/15/23 Range/Units 22:03 Total Bilirubin 0.7 (0.0-1.0) mg/dL Direct Bilirubin 0.4 (0.0-0.5) mg/dL AST 10 (5-31) U/L ALT 8 (0-31) U/L Alkaline Phosphatase 107 (39-117) U/L Albumin 3.9 (3.5-5.0) g/dL Urine 08/15/23 Range/Units 22:16 Urine Color Yellow Urine Appearance Cloudy Urine pH 5.5 (5.0-9.0) Ur Specific [place] 1.020 (1.005-1.025) Urine Protein Negative (Neg-Trace) mg/dL Urine Glucose (UA) Negative (Negative) mg/dL All other labs normal. Assessment and Plan (1) Diverticulitis: Status: Acute (2) Abdominal wall abscess: Status: Acute Plan 53-year-old female patient presenting with a new episode of diverticulitis involving the descending and sigmoid colon with a complex fluid collection involving the overlying musculature in the left lower quadrant. No air bubbles are identified however this is adjacent to the colon and does appear to be suggestive of a diverticular abscess. Patient admitted to the hospitalist service for IV antibiotics. Suggest IR drainage of fluid collection with possible drain placement, and culture of fluid collection. Will monitor patient's clinical course during her hospitalization. Procedures Date of Service Date of Service: 08/16/23
--- NOTE | 2023-08-16 07:23 | PHA.MEDREC ---
Pharmacy Consult ? Medication Reconciliation Pharmacy has completed the medication reconciliation. checked med rec with claim history from overnight
--- NOTE | 2023-08-16 09:45 | MHC.CM.PN ---
CM MET WITH PT AT BEDSIDE. PT LIVES WITH SPOUSE AND IS INDEPENDENT. EMPLOYED F/T. BELIEVES SHE HAS A HCP BUT WILLING TO DO ANOTHER WHILE HERE. PCP DR. CARVAJAL. DP: HOME, NO SERVICES ANTICIPATED. PT HAS OWN RIDE HOME. CM WILL CONTINUE TO FOLLOW FOR ANY CHANGE IN DC NEEDS/PLAN
[2023-08-16 11:08] LABS: Glucose, Whole Blood 128 mg/dL (60-115)
--- NOTE | 2023-08-16 14:19 | HO.RADPN ---
RADIOLOGY Narrative Narrative: Procedure Note CT drainage of diverticular abscess 10 fr drain placed into LLQ pericolonic abscess. 30 cc purulent fluid aspirated and sent for culture. No immediate complications. Full dictation to follow. Shiv BARRERA Interventional Radiology
--- NOTE | 2023-08-16 14:27 | PM.EVENT ---
Event Note Date of Service: 08/16/23 Event Note: Chart reviewed patient examined. Uneventful night. Pain control adequate. Underwent CT-guided drainage of diverticular abscess with 30 cc of purulent drainage sent to lab for culture. Patient tolerated the procedure well. Will continue Zosyn and follow up cultures. Time Spent With Patient Time: Total time managing care of this patient today ____ minutes.
[2023-08-16 16:18] LABS: Glucose, Whole Blood 104 mg/dL (60-115)
[2023-08-16] MEDS: Atorvastatin Calcium 20 MG TABLET PO (19:40)
[2023-08-16] MEDS: Morphine Sulfate 2 MG/ML CARTRIDGE IVPUSH (19:55)
[2023-08-16 20:19] LABS: Glucose, Whole Blood 159 mg/dL (60-115)
[2023-08-17] MEDS: Piperacillin Sodium/Tazobactam 4.5 GM in 0.9 % Sodium Chloride 100 ML IV ×3 (00:09→11:01)
[2023-08-17] MEDS: 0.9 % Sodium Chloride Flush 3 ML SYRINGE IVFLUSH ×2 (00:10→08:19)
[2023-08-17 03:17] VITALS: BP 100/57; PULSE 83; RESP 18; TEMP 36.7; O2SAT 96
[2023-08-17] MEDS: Morphine Sulfate 2 MG/ML CARTRIDGE IVPUSH (05:38)
[2023-08-17 07:21] VITALS: BP 100/62; PULSE 78; RESP 16; TEMP 36.2; O2SAT 97
[2023-08-17 07:36] LABS: Glucose, Whole Blood 178 mg/dL (60-115)
--- NOTE | 2023-08-17 09:00 | PM.PNGS ---
Subjective Subjective Date of Service: 08/17/23 <Tova Bills PA-C - Last Filed: 08/17/23 09:05> 08/17/23 <Nilson Larios MD - Last Filed: 08/17/23 10:32> Interval history: Feels improved this morning. Tolerating solid diet. Had BM last night. Wants to go home. <Tova Bills PA-C - Last Filed: 08/17/23 09:05> Physical Exam Vital Signs: Vital Signs: Last Vital Signs Temp 97.2 F 08/17/23 07:21 Pulse 78 08/17/23 07:21 Resp 16 08/17/23 07:21 BP 100/62 08/17/23 07:21 Pulse Ox 97 08/17/23 07:21 O2 Del Method Room Air 08/17/23 07:21 BMI result Body Mass Index 23.2 <Tova Bills PA-C - Last Filed: 08/17/23 09:05> Const: General: comfortable, no acute distress and alert <Tova Bills PA-C - Last Filed: 08/17/23 09:05> Orientation/consciousness: patient oriented x3 <LUCITA Arnold Last Filed: 08/17/23 09:05> Resp: Effort & Inspection: normal respiratory effort <LUCITA Arnold Last Filed: 08/17/23 09:05> GI: Other: drain in place, purulent output <Tova Bills PA-C - Last Filed: 08/17/23 09:05> Inspection: No distended <LUCITA Arnold Last Filed: 08/17/23 09:05> Palpation (GI): Soft to palpation, Tenderness to palpation present (GI) (mild LLQ, moderate at drain site), no guarding and not rigid <LUCITA Arnold Last Filed: 08/17/23 09:05> Skin: General skin exam: no rashes or lesions noted <LUCITA Arnold Last Filed: 08/17/23 09:05> Neuro: General: patient oriented x3 <Tova Bills PA-C - Last Filed: 08/17/23 09:05> Objective Data Active Medications Acetaminophen (Acetaminophen 325 Mg Tablet) 650 mg PO Q6H PRN PRN Reason: Pain, Mild (Pain Scale 1-3) Atorvastatin Calcium (Atorvastatin Calcium 20 Mg Tablet) 20 mg PO BEDTIME [facility] Last Admin: 08/16/23 19:40 Dose: 20 mg Documented By: EDILMA Dextrose (Dextrose 50 % 25 Gm/50 Ml Syringe) 25 gm IVPUSH Q15M PRN; Protocol PRN Reason: per Hypoglycemia Standing Ord. Glucose (Glucose Gel 15 Gm Gel..Gram.) 15 gm PO Q15M PRN; Protocol PRN Reason: per Hypoglycemia Standing Ord. Piperacillin Sod/Tazobactam (Sod 4.5 gm/ Sodium Chloride) 100 mls @ 200 mls/hr IV 0000,0600,1200,1800 [facility] Last Infusion: 08/17/23 06:09 Dose: Infused Documented By: EDILMA Insulin Human Lispro (Insulin Lispro 100 Unit/Ml 3 Ml Vial) 0 unit SUBCUT 0000,0600,1200,1800 [facility]; Protocol Last Admin: 08/17/23 06:22 Dose: Not Given Documented By: EDILMA Non-Admin Reason: pt no longer npo Melatonin (Melatonin 3 Mg Tablet) 6 mg PO BEDTIME PRN PRN Reason: Insomnia Morphine Sulfate (Morphine Sulfate 2 Mg/Ml Cartridge) 2 mg IVPUSH Q4H PRN; Protocol PRN Reason: Pain, Severe (Pain Scale 7-10) Last Admin: 08/17/23 05:38 Dose: 2 mg Documented By: EDILMA Ondansetron HCl (Ondansetron Hcl 4 Mg/2 Ml Vial) 4 mg IVPUSH Q8H PRN PRN Reason: Nausea and Vomiting Sodium Chloride (0.9 % Sodium Chloride Flush 3 Ml Syringe) 3 [facility] Last Admin: 08/17/23 08:19 Dose: 3 ml Documented By: KELLE <Tova Bills PA-C - Last Filed: 08/17/23 09:05> Labs CBC & Chem 7: 08/17/23 09:51 08/16/23 05:38 <Tova Bills PA-C - Last Filed: 08/17/23 09:05> Labs: Laboratory Results - last 24 hr 08/16/23 08/16/23 08/16/23 10:57 16:05 20:14 POC Glucose 128 H 104 159 H 08/17/23 07:24 POC Glucose 178 H <Tova Bills PA-C - Last Filed: 08/17/23 09:05> Microbiology Microbiology Results: Microbiology 08/16/23 Unknown Gram Stain - Final Abscess Intra-abdominal Routine Culture - Preliminary Culture in progress. Anaerobic Culture - Preliminary Culture in progress. 08/16/23 00:41 Blood Culture - Preliminary Blood - Venous No growth after 24 hours. 08/16/23 00:39 Blood Culture - Preliminary Blood - Venous No growth after 24 hours. 08/15/23 Unknown Urine Culture - Preliminary Urine clean catch - Urine gallego top No growth to date. <Tova Bills PA-C - Last Filed: 08/17/23 09:05> Procedures Date of Service Date of Service: 08/17/23 <Tova Bills PA-C - Last Filed: 08/17/23 09:05> 08/17/23 <Nilson Larios MD - Last Filed: 08/17/23 10:32> Progress Note: A&P Assessment and plan (1) Diverticulitis: Status: Acute <Tova Bills PA-C - Last Filed: 08/17/23 09:05> (2) Abdominal wall abscess: Status: Acute <Tova Bills PA-C - Last Filed: 08/17/23 09:05> Assessment and Plan: S/p IR drainage yesterday, feels improved. Abd exam improved with less tenderness, drain in place with purulent output. Cont IV abx for now. Keep drain in place for now. Patient comfortable with plan. <Tova Bills PA-C - Last Filed: 08/17/23 09:05> S/p IR drainage yesterday, feels improved. Abd exam improved with less tenderness, drain in place with purulent output. Cont IV abx for now. Keep drain in place for now. Patient comfortable with plan. Patient seen and examined. Feels improved today with less abdominal pain. Some tenderness mainly from the drain. VELASQUEZ continues to drain blood-tinged purulent fluid. No fecal material identified. WBC normal now. Patient having normal bowel movements as well. Okay for discharge to home from my standpoint with oral antibiotics. She should follow up in the office in 1 week for wound check and possible drain removal. Patient should be instructed on drain care and measurement of 24 hour output from the VELASQUEZ daily. She should bring the record to the office. <Nilson Larios MD - Last Filed: 08/17/23 10:32> Time Spent With Patient Time: Total time managing care of this patient today ____ minutes. <Tova Bills PA-C - Last Filed: 08/17/23 09:05> Quality Stroke Does the patient have a stroke diagnosis?: No <Tova Bills PA-C - Last Filed: 08/17/23 09:05> VTE Prior VTE?: No <Tova Bills PA-C - Last Filed: 08/17/23 09:05> VTE Risk Level:: Medical - moderate - high <Tova Bills PA-C - Last Filed: 08/17/23 09:05> VTE Device Contraindication: N/A - Device Ordered <Tova Bills PA-C - Last Filed: 08/17/23 09:05> VTE Drug Contraindication: Treatment Not Indicated <Tova Bills PA-C - Last Filed: 08/17/23 09:05>
[2023-08-17 09:59] LABS: MANUAL DIFF FLAG NO
[2023-08-17 10:09] LABS: Basophils Absolute Auto 0.1 X10*3/uL (0.0-0.2); Basophils Percent Auto 0.6 % (0-2); Eosinophils Absolute Auto 0.1 X10*3/uL (0.0-0.4); Eosinophils Percent Auto 0.7 % (0-4); Hematocrit 40.6 % (37.0-47.0); Hemoglobin 13.1 g/dl (12.0-16.0); Imm Gran Abs Auto 0.04 X10*3/uL (0.00-0.03); Imm Gran Pct Auto 0.4 % (0.0-0.4); Lymphocytes Absolute Auto 2.6 X10*3/uL (1.2-4.9); Lymphocytes Percent Auto 25.4 % (20-40); Mean Corpuscular HGB Conc 32.3 g/dl (31.0-35.0); Mean Corpuscular Hemoglobin 27.5 pg (27.0-33.0); Mean Corpuscular Volume 85.3 fL (80.0-98.0); Mean Platelet Volume 8.5 fL (9.4-12.3); Monocytes Absolute Auto 0.6 X10*3/uL (0.1-1.2); Monocytes Percent Auto 6.1 % (2-11); Neutrophils Absolute Auto 6.7 x10*3/uL (2.0-8.3); Neutrophils Percent Auto 66.8 % (45-73); Platelet Count 480 X10*3/uL (160-400); Red Blood Count 4.76 X10*6/uL (4.20-5.50); Red Cell Distribution Width 13.9 % (11.0-16.0)
--- NOTE | 2023-08-17 13:52 | W.MHC.F2F ---
Service Date Service Date: 08/17/23 Encounter Date of encounter: 08/17/23 Encounter: Acute hospitalization Reasons for Services Signs and symptoms assessed: Manage abdominal drain output and dressing changes; will not be a daily requirement Reason for long term: wound care, medication management and teach disease management Homebound: Leaving the home is medically contraindicated at this time without the asist of a device and/or another person due th the listed conditions above and below. Reason homebound: pain with transfers and unable to drive Certification: Based on the above findings, I certify that this patient is confined to the home and needs intermittent long term care, physical therapy and/or speech therapy, or continues to need occupational therapy. The patient is under my care, and I have initiated the establishment of the plan of care. The patient will be followed by a physician who will periodically review the plan of care. Time Spent With Patient Time: Total time managing care of this patient today ____ minutes.
--- NOTE | 2023-08-17 14:30 | MHC.CM.PN ---
PATIENT [place] HOME WITH NEW [facility] SERVICES.
--- NOTE | 2023-08-22 13:43 | PM.DS ---
DS: Providers Provider Date of Service: 08/22/23 Date of admission: 08/16/23 04:02 Date of discharge: 08/17/23 Primary care physician: Pietro Russell MD Consults: 08/16/23 04:04 Consult to General Surgery Routine Consulting Provider: [facility] [place] [facility] Reason for consultation: diverticular abscess DS: Diagnosis Discharge Diagnosis (1) Diverticulitis: Status: Acute (2) Abdominal wall abscess: Status: Acute DS: Summary Hospital Course Hospital Course: 53-year-old female with pertinent history of jqg-zancynd-vjigoavfi diabetes mellitus, mixed hyperlipidemia, tobacco use disorder who presents to the emergency department for evaluation of abdominal pain. Patient states she has been having on and off left lower quadrant abdominal pain that has been ongoing for the last 1 month. Patient states it has been progressive since the last 1 week. Also noticed a lump noticed in the left lower quadrant of the abdomen. No history of similar pain in the past. No fever, chills, nausea, vomiting, chest discomfort, shortness of breath, changes in urinary habits. CT scan demonstrated diverticular abcess of mid descending/sigmoid colon. Hospital Course Patient admitted to [facility] and started on Zosyn. She was seen in consultation by surgery who recommended IR CT drainage.On 08/16/[address] drainage for which yielded 30cc purulent fluid. Drain was place and pt tolerated procedure well.On am 08/17/23, patient was ambualory..exam benign. Discussed with Dr. Antoine...acceptable to DC patient on PO antibiotics with drain....will follow with Dr. Zuleta in office for drain removal. She will be D/C'd on augmentin along with oxycodone. [facility] will follow to assist with drain management. Time Attestation Discharge coordination time: Greater than 30 minutes Quality: Safe Use of Opioids Does Pt have an Active Cancer Diagnosis on the Problem List?: No Quality: Stroke Does the patient have a stroke diagnosis?: No Physical Exam Vital Signs: Vital Signs: Last Vital Signs Temp 97.2 F 08/17/23 07:21 Pulse 78 08/17/23 07:21 Resp 16 08/17/23 07:21 BP 100/62 08/17/23 07:21 Pulse Ox 97 08/17/23 07:21 O2 Del Method Room Air 08/17/23 07:21 BMI result Body Mass Index 23.2 Const: Other: no Acute distress Resp: Other: clear to auscultation bilt...no rales/rhonci/wheezes Cardio: Other: -S4;+S1/S2; no S3 m/r/g GI: Other: soft with minimal tenderness RLQ (drain).drain site c/d/i. No peritoneal signs Extrem: Other: no c /c/e DS: Data Data Completed and Pending Completed studies during hospitalization [Text1]: Procedures Drainage of Pelvic Cavity with Drainage Device, Percutaneous Approach (08/16/23) Discharge Plan Discharge Anticipated Discharge Date/Time: 08/17/23 10:37 Patient Disposition: Home Health Service Discharge Diagnosis: Diverticular abscess Referrals: Bethanie GRIFFITH [Outside] - 1 Week Pietro Russell MD [Primary Care Provider] - 1 Week Discharge Medications: New amoxicillin-pot clavulanate 875-125 mg tablet 1 tab PO BID Qty: 20 0RF oxycodone 5 mg tablet 5 mg PO Q6H PRN (Reason: pain) Qty: 20 0RF Rx Instructions: Partial Fill upon patient request. Continued atorvastatin 20 mg tablet 20 mg PO BEDTIME metformin 500 mg tablet extended release 24 hr 1,000 mg PO BEDTIME metformin 500 mg Tablet 500 mg PO QAM metoprolol succinate 25 mg tablet extended release 24 hr 25 mg PO DAILY Discharge Orders: Discharge Order (Routine); Ordered 08/17/23 Ordered By: Willard Romero Diet: Advance to usual diet Activity on Discharge: As tolerated Stand Alone Forms: Patient Portal Discharge page, Work/School Release Care Plan Goals: Resume all home medicines as before hospital. Add Augmentin 875 twice a day for 10 days. Oxycodone 5 mg q.6 hours for pain Health Concerns: Follow-up with Dr. Larios in office;[phone] for appointment Plan of Treatment: GLADIS will come in to assess and help with drain issues Assessment: See discharge summary Discharge Date/Time: 08/17/23 13:34
--- NOTE | 2023-09-05 07:30 | P.CDIM_ITS ---
PROVIDER RESPONSE TEXT: To clarify, the appropriate diagnosis supported by the clinical indicators: Sepsis: r/out QUERY TEXT: PHYSICIAN'S DOCUMENTATION REQUEST Date of Query: 08/17/2023 08:28 AM EST Patient Name: Khushboo Ortega Admit Date: 08/16/2023 Dear Willard Romero, A review of the medical record indicates additional documentation may be needed. Please review below and update the documentation accordingly. Clinical indicators: ED: patient's presentation is not consistent with Sepsis. H&P 1/2 - Plan - Sepsis due to diverticular abscess. WBC 20.3 LA WNL TEMP 99.7 HR 109 RR 16 Zosyn Sepsis Systemic manifestations of infection, with 2 or more SIRS criteria which include: Fever > 100.4?F or hypothermia < 96.8?F Leukocytosis - WBC > 12,000 or leukopenia, WBC < 4,000, or > 10% bands Tachycardia- > 90 beats/minute Tachypnea- RR > 20 breaths/minute or PaCO2 < 32mmHg Based on the above information and the recognized standard for sepsis, could you please clarify if th is diagnoses is still accurate and reflective of the patient's condition to ensure quality of the medical record. Sepsis suspected, possible, probable, resolved, ruled out etc. Other Other (explain) Clinically unable to determine (explain) Thank you, Ashley Howe, CCS, CDIS Use of terms such as suspected, likely, concern for, or probable (associated with a specific diagnosi s that is being evaluated, monitored, or treated as if it exists) are acceptable and can be coded in the inpatient se tting, when documented at the time of discharge. Please use your independent medical judgment in providing your response. THIS QUERY IS PART OF THE PERMANENT MEDICAL RECORD
--- NOTE | 2023-09-05 07:30 | P.CDIM_ITS ---
PROVIDER RESPONSE TEXT: To clarify, the appropriate diagnosis supported by the clinical indicators: Sepsis: r/out QUERY TEXT: PHYSICIAN'S DOCUMENTATION REQUEST Date of Query: 08/19/2023 09:52 AM EST Patient Name: Khushboo Ortega Admit Date: 08/16/2023 Dear Willard Romero, RETROSPECTIVE QUERY A review of the medical record indicates additional documentation may be needed. Please review below and update the documentation accordingly. Clinical indicators: Ed: patients presentation is not consistent with Sepsis History and physical dated 08/16/23 - Plan: Sepsis due to diverticular disease. WBC 20.3 LA WNL TEMP 99.7 HR 109 RR 16 Zosyn Sepsis Systemic manifestations of infection, with 2 or more SIRS criteria which include: Fever > 100.4?F or hypothermia < 96.8?F Leukocytosis - WBC > 12,000 or leukopenia, WBC < 4,000, or > 10% bands Tachycardia- > 90 beats/minute Tachypnea- RR > 20 breaths/minute or PaCO2 < 32mmHg Based on the above information and the recognized standard for sepsis, could you please clarify if th is diagnoses is still accurate and reflective of the patient's condition to ensure quality of the medical record. Sepsis resolved, suspected, probable, possible, not treating sepsis Other Other (explain) Clinically unable to determine (explain) Thank you, Ashley Howe, CCS, CDIS Use of terms such as suspected, likely, concern for, or probable (associated with a specific diagnosi s that is being evaluated, monitored, or treated as if it exists) are acceptable and can be coded in the inpatient se tting, when documented at the time of discharge. Please use your independent medical judgment in providing your response. THIS QUERY IS PART OF THE PERMANENT MEDICAL RECORD
== END 2023-08-17 13:34 | disposition home health service (06) | DRG 392 ==
LOC: HO.ED 08-16 02:15 → HO.EDOVER 08-16 04:18 → HO.S3 08-16 05:48
PROVIDERS: Nurse Practitioner Family; Physician Assistant Medical; Physician Assistant Surgical; Admitting Provider Student in an Organized Health Care Education/Training Program; Emergency Provider Internal Medicine; PCP Family Medicine; Visit Provider Hospitalist
DX: K57.20 Diverticulitis of large intestine with perforation and abscess without bleeding (principal); E11.9 Type 2 diabetes mellitus without complications; K21.9 Gastro-esophageal reflux disease without esophagitis; E78.2 Mixed hyperlipidemia; F17.210 Nicotine dependence, cigarettes, uncomplicated; Z71.6 Tobacco abuse counseling; Z79.84 Long term (current) use of oral hypoglycemic drugs; Z79.899 Other long term (current) drug therapy
CPT/HCPCS: 36415; 74177; 75989; 80048; 80076; 81001; 82947; 83605; 83690; 85025; 87040; 87070; 87073; 87076; 87077; 87086; 87147; 87186; 87205; 99152; 99221; 99285; C1729; C1769; J0696; J1836; J2270; J2405; J2543; J7120; Q4186; Q9967

== ENCOUNTER 2023-08-16 04:02 | Outpatient (BNV) | payer OTHER, SELFPAY | END 2023-08-16 13:04 | PROVIDERS: Admitting Provider Student in an Organized Health Care Education/Training Program; Emergency Provider Internal Medicine; PCP Family Medicine; Visit Provider Radiology Diagnostic Radiology | DX: K57.20 Diverticulitis of large intestine with perforation and abscess without bleeding (principal) | CPT/HCPCS: 49406 ==

== ENCOUNTER → 2023-08-16 04:02 | Outpatient (BNV) | payer OTHER, SELFPAY | PROVIDERS: Admitting Provider Student in an Organized Health Care Education/Training Program; Emergency Provider Internal Medicine; PCP Family Medicine; Visit Provider Student in an Organized Health Care Education/Training Program | DX: K57.12 Diverticulitis of small intestine without perforation or abscess without bleeding (principal) | CPT/HCPCS: 99222; 99239; 99499; G0180 ==

== ENCOUNTER → 2023-08-16 04:02 | Outpatient (BNV) | payer OTHER, SELFPAY | PROVIDERS: Admitting Provider Student in an Organized Health Care Education/Training Program; Emergency Provider Internal Medicine; PCP Family Medicine; Visit Provider Surgery | DX: K57.92 Diverticulitis of intestine, part unspecified, without perforation or abscess without bleeding (principal); L02.211 Cutaneous abscess of abdominal wall | CPT/HCPCS: 99222; 99232 ==

== ENCOUNTER 2023-08-25 09:47 | Outpatient (AMB) | payer OTHER, SELFPAY ==
--- NOTE | 2023-08-25 10:00 | MHC.OFFVIS ---
Intake Vital Signs 08/25/23 10:10 Height 5 ft Weight 114 lb 6 oz BMI 22.3 BP 113/62 Blood Pressure Location Lt brachial Pulse 98 Intake Visit Reasons: diverticulitis abscess/possible VELASQUEZ drain removal Intake Note: Patient is seen in office for ER follow up visit, following diverticulitis abscess/possible VELASQUEZ drain removal. 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 She presented to the emergency department and was found to have tenderness and a palpable mass in the left lower quadrant. Laboratories revealed an elevated WBC of [address] abdomen and pelvis revealed diverticulosis of the descending and sigmoid colon with acute diverticulitis of the mid descending colon with adjacent collection extending into the left oblique abdominal musculature measuring 7 x 3.6 x 7 cm likely a diverticular abscess. She was admitted to the hospitalist service and subsequently underwent an IR guided drainage procedure. Following this she reported a marked improvement in her abdominal symptoms and was subsequently discharged home on oral antibiotics. She is currently on linezolid 600 mg p.o. b.i.d. for group F strep. She returns today for wound check and possible drain removal. She continues to have discharge after treating 10-20 mL per day which appears feculent. She complains mainly of soreness at the drain site. Since starting the linezolid she does know some visual changes in the periphery. This started yesterday. She denies nausea, vomiting, fever, chills, diarrhea or constipation. [facility] Medical History Abdominal mass Nicotine dependence, cigarettes, uncomplicated GERD (gastroesophageal reflux disease) Hyperlipidemia Type 2 diabetes mellitus (~2013) Surgical History History of surgical removal of ganglion cyst (~1996) History of excision of hemangioma (~2021) History of colonoscopy (~2020) History of excision of epidermal inclusion cyst (~2022) History of tubal ligation (~1994) History of elbow surgery (~2013) Social History Household Members: Spouse Housing: House Do you presently have visiting nurse or other home services: No Patient Tobacco Use Status: Current everyday Tobacco user Tobacco use type: Cigarette Cigarette Packs Per Day: 1 Cigarettes Per Day: 20.0 Years Smoked: (onset 16yo, 1ppd x 36yrs, 30+PYH) Second Hand Smoke Exposure: No service: No Current occupational status: employed 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 Review of Systems Const All systems reviewed & are unremarkable except as noted in HPI and below Physical Exam Vital Signs: Last Vital Signs Pulse 98 08/25/23 10:10 BP 113/62 08/25/23 10:10 BMI result Body Mass Index 22.3 Last Vital Signs Temp 97.2 F 08/17/23 07:21 Pulse 78 08/17/23 07:21 Resp 16 08/17/23 07:21 BP 100/62 08/17/23 07:21 Pulse Ox 97 08/17/23 07:21 O2 Del Method Room Air 08/17/23 07:21 BMI result Body Mass Index 23.2 Const General: comfortable, no acute distress and alert Orientation/consciousness: patient oriented x3 Resp Effort & Inspection: normal respiratory effort GI Other: drain in place, purulent output Inspection: No distended Palpation (GI): Soft to palpation, Tenderness to palpation present (GI) (mild LLQ, moderate at drain site), no guarding and not rigid Skin General skin exam: no rashes or lesions noted Neuro General: patient oriented x3 Assessment & Plan Assessment & Plan (1) Diverticulitis: Code(s): K57.92 - Diverticulitis of intestine, part unspecified, without perforation or abscess without bleeding (2) Abdominal wall abscess: Code(s): L02.211 - Cutaneous abscess of abdominal wall Plan 53-year-old female patient with diverticulitis with abscess of the abdominal wall status post IR drainage. The drainage continues but has decreased significantly. I recommended a follow-up CT abdomen and pelvis to re-evaluate the diverticulitis and abdominal wall abscess prior to removal of the tube. She will return following this study to review results. Orders: Orders CT abdomen pelvis w IV con Today K57.92 - Diverticulitis of intestine, part unspecified, without perforation or abscess without bleeding, L02.211 - Cutaneous abscess of abdominal wall Coding Level of Care Code Est Pt Level 3 (48266) Diagnoses Diverticulitis K57.92 Abdominal wall abscess L02.211
[2023-08-25 10:10] VITALS: BP 113/62; PULSE 98; BMI 22.3
== END 2023-08-25 10:19 | disposition home or self-care (01) ==
PROVIDERS: PCP Family Medicine; Visit Provider Surgery
DX: K57.92 Diverticulitis of intestine, part unspecified, without perforation or abscess without bleeding (principal); L02.211 Cutaneous abscess of abdominal wall
CPT/HCPCS: 99213

== ENCOUNTER → 2023-08-25 09:47 | Outpatient (BNVA) | payer OTHER, SELFPAY | PROVIDERS: PCP Family Medicine; Visit Provider Surgery ==

== ENCOUNTER 2023-08-30 11:15 | Outpatient (REF) | payer OTHER, SELFPAY ==
--- NOTE | ~2023-08-30 | CT_ITS ---
EXAMINATION: CT ABDOMEN AND PELVIS WITH CONTRAST CLINICAL INFORMATION: Follow-up left lower quadrant abdominal wall abscess COMPARISON: None available. TECHNIQUE: Multidetector volumetric images were obtained from the superior aspect of the liver through the pubic symphysis following administration 85 mL of Omnipaque 350 intravenous contrast. Sagittal and coronal reformatted images were obtained on the technologist's workstation. Oral contrast: No This CT examination was performed using dose optimization techniques as appropriate, variously including the following: *Automated exposure control *Adjustment of mA and/or kV according to patient size (this includes techniques or standardized protocols for targeted exams where dose is matched to indication/reason for exam; i.e. extremities or head) *Use of iterative reconstruction technique DLP: 222 mGy-cm FINDINGS: CATTLE SORTER: Drainage catheter overlying the left iliac wing. Nonobstructive bowel pattern. LUNG BASES: Bilateral atelectasis. Nonenlarged heart. No pericardial effusion. LIVER, GALLBLADDER, AND BILIARY TREE: The liver is normal in size, shape, and attenuation. Hypodensity adjacent to the falciform ligament likely focal fatty deposition. The proximal of the breasts No focal hepatic lesion or biliary ductal dilatation is present. The gallbladder is unremarkable with no evidence of radiopaque gallstones, gallbladder wall thickening, or obvious pericholecystic inflammatory changes. PANCREAS: Unremarkable. SPLEEN: Unremarkable. ADRENAL GLANDS: Stable adrenal nodules in comparison with 2015. KIDNEYS AND URETERS: The kidneys are normal in size, shape, and attenuation. No hydronephrosis or hydroureter. 5 mm right mid pole nonobstructing renal calculus. Redemonstration multiple bilateral renal cysts, largest on the left measuring 1.4 cm. No perinephric stranding. BLADDER: Decompressed. GASTROINTESTINAL TRACT: Debris and contrast distended stomach. Nonobstructive bowel pattern. Appendix not identified. Moderate fecal retention. Diverticulosis with diffuse thickening and stranding descending and sigmoid colon. ABDOMINAL WALL: Drainage catheter left pelvic sidewall adjacent to thick-walled descending colon with adjacent inflammatory changes. No residual fluid/abscess. No abnormal air collections. Small fat filled umbilical hernia. LYMPH NODES: Normal. VASCULAR: Atherosclerotic calcifications nonaneurysmal aorta and iliac arteries. Left-sided inferior vena cava. PELVIC VISCERA: No recognizable pelvic pathology. OSSEOUS STRUCTURES: Unremarkable. CT/CT abdomen pelvis w IV con IMPRESSION: Persistent descending and sigmoid colonic diverticulitis. No residual diverticular abscess in the presence of indwelling left pelvic sidewall abscess drainage catheter. Fleischner guidelines were followed.
[2023-08-30] MEDS: iohexoL 350 MG/ML 100 ML INFUS..BTL IV (13:49)
[2023-08-30] MEDS: Barium Sulfate Oral (Vanilla) 450 ML ORAL.SUSP 900 ML PO (13:50)
== END 2023-08-30 11:16 | disposition home or self-care (01) ==
LOC: HO.CT 11:15
PROVIDERS: PCP Family Medicine; Visit Provider Surgery
DX: K57.92 Diverticulitis of intestine, part unspecified, without perforation or abscess without bleeding (principal); L02.211 Cutaneous abscess of abdominal wall
CPT/HCPCS: 74177; Q9967

== ENCOUNTER 2023-09-01 11:37 | Outpatient (AMB) | payer OTHER, SELFPAY ==
[2023-09-01 11:45] VITALS: BP 123/64; PULSE 97; BMI 22.5
--- NOTE | 2023-09-01 11:45 | MHC.OFFVIS ---
Intake Vital Signs 09/01/23 11:45 Height 5 ft Weight 115 lb BMI 22.5 BP 123/64 Blood Pressure Location Lt brachial Position Sitting Pulse 97 Intake Visit Reasons: CT results Intake Note: Patient is seen in office for post op assessment post right inguinal hernia repair. 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 She presented to the emergency department and was found to have tenderness and a palpable mass in the left lower quadrant. Laboratories revealed an elevated WBC of [address] abdomen and pelvis revealed diverticulosis of the descending and sigmoid colon with acute diverticulitis of the mid descending colon with adjacent collection extending into the left oblique abdominal musculature measuring 7 x 3.6 x 7 cm likely a diverticular abscess. She was admitted to the hospitalist service and subsequently underwent an IR guided drainage procedure. Following this she reported a marked improvement in her abdominal symptoms and was subsequently discharged home on oral antibiotics. She is currently on linezolid 600 mg p.o. b.i.d. for group F strep. She returns today for wound check and possible drain removal. Discharge is very minimal less than 1 mL per day. A CT abdomen and pelvis performed reveals no residual abscess but with continued inflammation involving the sigmoid colon. She is tolerating the linezolid without difficulties. [facility] Medical History Abdominal mass Nicotine dependence, cigarettes, uncomplicated GERD (gastroesophageal reflux disease) Hyperlipidemia Type 2 diabetes mellitus (~2013) Surgical History History of surgical removal of ganglion cyst (~1996) History of excision of hemangioma (~2021) History of colonoscopy (~2020) History of excision of epidermal inclusion cyst (~2022) History of tubal ligation (~1994) History of elbow surgery (~2013) Social History Household Members: Spouse Housing: House Do you presently have visiting nurse or other home services: No Patient Tobacco Use Status: Current everyday Tobacco user Tobacco use type: Cigarette Cigarette Packs Per Day: 1 Cigarettes Per Day: 20.0 Years Smoked: (onset 16yo, 1ppd x 36yrs, 30+PYH) Second Hand Smoke Exposure: No service: No Current occupational status: employed 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 Review of Systems Const All systems reviewed & are unremarkable except as noted in HPI and below Physical Exam Vital Signs: Last Vital Signs Pulse 97 09/01/23 11:45 BP 123/64 09/01/23 11:45 BMI result Body Mass Index 22.5 Last Vital Signs Temp 97.2 F 08/17/23 07:21 Pulse 78 08/17/23 07:21 Resp 16 08/17/23 07:21 BP 100/62 08/17/23 07:21 Pulse Ox 97 08/17/23 07:21 O2 Del Method Room Air 08/17/23 07:21 BMI result Body Mass Index 23.2 Const General: comfortable, no acute distress and alert Orientation/consciousness: patient oriented x3 Resp Effort & Inspection: normal respiratory effort GI Other: drain in place, minimal output. The IR drain was removed and a sterile dressing applied. After initial soreness the patient tolerated the procedure well. Inspection: No distended Palpation (GI): Soft to palpation, Tenderness to palpation present (GI) (mild LLQ, moderate at drain site), no guarding and not rigid Skin General skin exam: no rashes or lesions noted Neuro General: patient oriented x3 Assessment & Plan Assessment & Plan (1) Abdominal wall abscess: Code(s): L02.211 - Cutaneous abscess of abdominal wall (2) Diverticulitis: Code(s): K57.92 - Diverticulitis of intestine, part unspecified, without perforation or abscess without bleeding Plan Overall patient is much improved with resolution of the abdominal wall abscess by CT. The IR drain was removed today and she tolerated this well. She should continue the antibiotics until completed and should follow up in 1 month for repeat examination. She is welcome to call sooner for any new concerns. Coding Level of Care Code Est Pt Level 3 (90851) Diagnoses Abdominal wall abscess L02.211 Diverticulitis K57.92
== END 2023-09-01 11:58 | disposition home or self-care (01) ==
PROVIDERS: PCP Family Medicine; Visit Provider Surgery
DX: L02.211 Cutaneous abscess of abdominal wall (principal); K57.92 Diverticulitis of intestine, part unspecified, without perforation or abscess without bleeding
CPT/HCPCS: 99213

== ENCOUNTER → 2023-09-01 11:37 | Outpatient (BNVA) | payer OTHER, SELFPAY | PROVIDERS: PCP Family Medicine; Visit Provider Surgery ==

== ENCOUNTER 2023-09-24 07:20 | Outpatient (REF) | payer OTHER, SELFPAY ==
[2023-09-24 11:00] LABS: MANUAL DIFF FLAG NO
[2023-09-24 11:05] LABS: Basophils Absolute Auto 0.1 X10*3/uL (0.0-0.2); Basophils Percent Auto 0.8 % (0-2); Eosinophils Absolute Auto 0.2 X10*3/uL (0.0-0.4); Eosinophils Percent Auto 1.6 % (0-4); Hematocrit 44.1 % (37.0-47.0); Hemoglobin 13.9 g/dl (12.0-16.0); Imm Gran Abs Auto 0.05 X10*3/uL (0.00-0.03); Imm Gran Pct Auto 0.4 % (0.0-0.4); Lymphocytes Absolute Auto 3.5 X10*3/uL (1.2-4.9); Lymphocytes Percent Auto 26.6 % (20-40); Mean Corpuscular HGB Conc 31.5 g/dl (31.0-35.0); Mean Corpuscular Volume 88.7 fL (80.0-98.0); Mean Platelet Volume 9.4 fL (9.4-12.3); Monocytes Absolute Auto 0.7 X10*3/uL (0.1-1.2); Monocytes Percent Auto 5.5 % (2-11); Neutrophils Absolute Auto 8.6 x10*3/uL (2.0-8.3); Neutrophils Percent Auto 65.1 % (45-73); Platelet Count 493 X10*3/uL (160-400); Red Blood Count 4.97 X10*6/uL (4.20-5.50); Red Cell Distribution Width 15.9 % (11.0-16.0); White Blood Count 13.3 X10*3/uL (4.8-10.8)
== END 2023-09-24 07:21 | disposition home or self-care (01) ==
LOC: HO.HMGCLDS 07:20
PROVIDERS: PCP Family Medicine; Visit Provider Family Medicine
DX: R00.0 Tachycardia, unspecified (principal); R53.81 Other malaise
CPT/HCPCS: 36415; 85025

== ENCOUNTER 2023-10-06 14:53 | Outpatient (AMB) | payer OTHER, SELFPAY ==
--- NOTE | 2023-10-06 14:55 | MHC.OFFVIS ---
Intake Vital Signs 10/06/23 15:01 Height 5 ft Weight 117 lb 8 oz BMI 22.9 BP 110/66 Blood Pressure Location Lt brachial Position Sitting Pulse 105 H Intake Visit Reasons: 1 mth follow up diverticular abscess Intake Note: Patient is seen in office for one month follow up visit, drainage of a diverticular abscess Pt c/o: denies any concerns at the time of visit Cable Hooker Required: No Accompanied by: Self / Same As Patient Allergies mushroom Allergy (Intermediate, Verified 10/06/23 15:00) DRY HEAVES seafood Allergy (Intermediate, Verified 10/06/23 15:00) Nausea and Vomiting Medication List - Last Reconciled 10/06/23 by Nilson Larios MD atorvastatin 20 mg PO BEDTIME linezolid 600 mg PO Q12H 14 days metformin 500 mg PO QAM metformin ER 1,000 mg PO BEDTIME metoprolol succinate ER 25 mg PO DAILY oxycodone 5 mg PO Q6H PRN HPI HPI Comments History of Present Illness Details 53-year-old female admitted on 08/15/2023 with complaints of abdominal pain in the left lower quadrant. She presented to the emergency department and was found to have tenderness and a palpable mass in the left lower quadrant. Laboratories revealed an elevated WBC of [address] abdomen and pelvis revealed diverticulosis of the descending and sigmoid colon with acute diverticulitis of the mid descending colon with adjacent collection extending into the left oblique abdominal musculature measuring 7 x 3.6 x 7 cm likely a diverticular abscess. She was admitted to the hospitalist service and subsequently underwent an IR guided drainage procedure. Following this she reported a marked improvement in her abdominal symptoms and was subsequently discharged home on oral antibiotics. She completed a course of linezolid 600 mg p.o. b.i.d. for group F strep. The drain was removed at her last visit and since this time she is done well. She denies any fever, chills, nausea or vomiting. She is eating well and her bowels are regular. She is returned to work in denies any ongoing symptoms. Her last colonoscopy was just prior to COVID pandemic and was normal. [facility] Medical History Abdominal mass Nicotine dependence, cigarettes, uncomplicated GERD (gastroesophageal reflux disease) Hyperlipidemia Type 2 diabetes mellitus (~2013) Surgical History History of surgical removal of ganglion cyst (~1996) History of excision of hemangioma (~2021) History of colonoscopy (~2020) History of excision of epidermal inclusion cyst (~2022) History of tubal ligation (~1994) History of elbow surgery (~2013) Social History Household Members: Spouse Housing: House Do you presently have visiting nurse or other home services: No Patient Tobacco Use Status: Current everyday Tobacco user Tobacco use type: Cigarette Cigarette Packs Per Day: 1 Cigarettes Per Day: 20.0 Years Smoked: (onset 16yo, 1ppd x 36yrs, 30+PYH) Second Hand Smoke Exposure: No service: No Current occupational status: employed 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 Review of Systems Const All systems reviewed & are unremarkable except as noted in HPI and below Physical Exam Vital Signs: Last Vital Signs Pulse 105 H 10/06/23 15:01 BP 110/66 10/06/23 15:01 BMI result Body Mass Index 22.9 Last Vital Signs Temp 97.2 F 08/17/23 07:21 Pulse 78 08/17/23 07:21 Resp 16 08/17/23 07:21 BP 100/62 08/17/23 07:21 Pulse Ox 97 08/17/23 07:21 O2 Del Method Room Air 08/17/23 07:21 BMI result Body Mass Index 23.2 Const General: comfortable, no acute distress and alert Orientation/consciousness: patient oriented x3 Resp Effort & Inspection: normal respiratory effort GI Other: Small amount of residual inflammation in the left lower quadrant at the drain site. No tenderness, rebound, guarding or rigidity. Skin is normal without erythema or fluctuance. Inspection: No distended Palpation (GI): Soft to palpation, nontender, no guarding and not rigid Skin General skin exam: no rashes or lesions noted Neuro General: patient oriented x3 Extrem General: Yes no clubbing, cyanosis or edema Assessment & Plan Assessment & Plan (1) Diverticulitis: Code(s): K57.92 - Diverticulitis of intestine, part unspecified, without perforation or abscess without bleeding (2) Abdominal wall abscess: Code(s): L02.211 - Cutaneous abscess of abdominal wall Plan 53-year-old female patient presenting with a diverticular abscess extending into the abdominal wall, now resolved after IR drainage and antibiotics. She feels much improved and denies any ongoing intestinal symptoms. We discussed elective sigmoid colectomy to remove this portion of the sigmoid colon. I reviewed the risks and benefits of the procedure. She wishes to think about proceeding with surgery and will call when she is ready to schedule. I also asked her to call should her symptoms return to restart antibiotics. She expressed understanding and agrees with the plan. Coding Level of Care Code Est Pt Level 3 (27186) Diagnoses Diverticulitis K57.92 Abdominal wall abscess L02.211
[2023-10-06 15:01] VITALS: BP 110/66; PULSE 105; BMI 22.9
== END 2023-10-06 15:11 | disposition home or self-care (01) ==
PROVIDERS: PCP Family Medicine; Visit Provider Surgery
DX: K57.92 Diverticulitis of intestine, part unspecified, without perforation or abscess without bleeding (principal); L02.211 Cutaneous abscess of abdominal wall
CPT/HCPCS: 99214

== ENCOUNTER → 2023-10-06 14:53 | Outpatient (BNVA) | payer OTHER, SELFPAY | PROVIDERS: PCP Family Medicine; Visit Provider Surgery ==

== ENCOUNTER 2023-11-05 06:50 | Outpatient (REF) | payer OTHER, SELFPAY ==
[2023-11-05 11:31] LABS: Estimated Average Glucose 151 mg/dL; Hemoglobin A1c % 6.9 % (<6.0)
[2023-11-05 11:40] LABS: Creatinine Urine 179.05 mg/dL; Microalbum/Creatinine Ratio Ur 12.8 ug/mg cr (<30)
[2023-11-05 11:47] LABS: Alanine Aminotransferase 19 U/L (0-31); Aspartate Amino Transferase 25 U/L (5-31); Blood Urea Nitrogen 7 mg/dL (9-16); Cholesterol 82 mg/dL (<200); Estimated Glomerular Filt Rate > 60; Glucose Fasting 132 mg/dL (60-99); HDL Cholesterol 30 mg/dL (>40); LDL Cholesterol Calculated 33 mg/dL (<100); Triglycerides 96 mg/dL (<150)
== END 2023-11-05 06:51 | disposition home or self-care (01) ==
LOC: HO.HMGCLDS 06:50
PROVIDERS: PCP Family Medicine; Visit Provider Family Medicine
DX: E11.9 Type 2 diabetes mellitus without complications (principal); E78.00 Pure hypercholesterolemia, unspecified; Z79.899 Other long term (current) drug therapy
CPT/HCPCS: 36415; 80061; 82043; 82550; 82565; 82570; 82947; 83036; 84450; 84460; 84520

== ENCOUNTER → 2023-12-07 14:55 | Outpatient (BNV) | payer OTHER, SELFPAY | PROVIDERS: Admitting Provider Surgery; PCP Family Medicine; Visit Provider Internal Medicine Cardiovascular Disease | DX: R00.0 Tachycardia, unspecified (principal) | CPT/HCPCS: 93010 ==

== ENCOUNTER 2023-12-07 15:07 | Outpatient (REF) | payer OTHER, SELFPAY ==
--- NOTE | ~2023-12-07 | CT_ITS ---
EXAMINATION: CT ABDOMEN AND PELVIS WITH CONTRAST CLINICAL INFORMATION: Cutaneous abscess and abdominal wall COMPARISON: 08/30/2023 TECHNIQUE: Multidetector volumetric images were obtained from the superior aspect of the liver through the pubic symphysis following administration 85 mL of Omnipaque 350 intravenous contrast. Sagittal and coronal reformatted images were obtained on the technologist's workstation. Oral contrast: Administrative This CT examination was performed using dose optimization techniques as appropriate, variously including the following: *Automated exposure control *Adjustment of mA and/or kV according to patient size (this includes techniques or standardized protocols for targeted exams where dose is matched to indication/reason for exam; i.e. extremities or head) *Use of iterative reconstruction technique DLP: 379 mGy-cm FINDINGS: LUNG BASES: The visualized lung bases are unremarkable. LIVER, GALLBLADDER, AND BILIARY TREE: The liver is normal in size, shape, and attenuation. No focal hepatic lesion or biliary ductal dilatation is present. The gallbladder is unremarkable with no evidence of radiopaque gallstones, gallbladder wall thickening, or obvious pericholecystic inflammatory changes. PANCREAS: Unremarkable. SPLEEN: Unremarkable. ADRENAL GLANDS: There is high attenuation 1.5 x 1.0 cm nodule in the medial limb of right adrenal gland, stable since prior study and there is isodense 1.5 x 0.9 cm nodule in the medial limb of left adrenal gland, stable since previous study KIDNEYS AND URETERS: Multiple small renal cysts are seen again with the largest cyst is identified in the lower pole of left kidney, measured 1.7 cm. There is stable 0.3 cm calculus in interpolar collecting system of right kidney BLADDER: Unremarkable. GASTROINTESTINAL TRACT: Stomach is not compressed. Loops of small bowel unremarkable. There is duodenal diverticulum present. There are changes of colonic diverticulosis without diverticulitis but there is possibly a fistula communicating previous colonic drainage to the left abdominal wall creating multiple abscesses through the wall, inseparable from lateral wall of the descending colon point of communication to the wall of the descending colon seen on image 44 series 2 Appendix is not seen. ABDOMINAL WALL: The abscess in the left side of the anterior abdominal wall is mildly locular with the largest component measured 6.9 x 2.0 cm with air-fluid level and more superficial component measured 6.1 x 2.1 cm intraperitoneal component measured 3.0 x 1.2 cm. The cutaneous component of lesion containing no air measured 2.3 x 2.1 cm. The surrounding muscle is thickened LYMPH NODES: Normal. VASCULAR: Unremarkable. PELVIC VISCERA: Unremarkable. OSSEOUS STRUCTURES: Unremarkable. CT/CT abdomen pelvis w IV con IMPRESSION: 1. Multilocular abscess in the left anterior abdominal wall with extension into the peritoneal cavity and cutaneous component as described. 2. Possible fistula to the descending colon. 3. Stable bilateral adrenal gland nodules. 4. Bilateral renal cysts, unchanged. 5. Right nephrolithiasis, unchanged. 6. Duodenal diverticulum. 7. Diverticulosis without diverticulitis. Fleischner guidelines were followed.
[2023-12-07] MEDS: iohexoL 350 MG/ML 75 ML INFUS..BTL 85 ML IV (16:14)
== END 2023-12-07 15:08 | disposition home or self-care (01) ==
LOC: HO.CT 15:07
PROVIDERS: PCP Family Medicine; Visit Provider Surgery
DX: L02.211 Cutaneous abscess of abdominal wall (principal); K57.92 Diverticulitis of intestine, part unspecified, without perforation or abscess without bleeding
CPT/HCPCS: 74177; Q9967

== ENCOUNTER 2023-12-12 07:22 | Inpatient (IN) | payer OTHER, SELFPAY ==
--- NOTE | 2023-12-07 | ECG_ITS ---
Test Reason : PREOP Blood Pressure : / mmHG Vent. Rate : 106 BPM Atrial Rate : 106 BPM P-R Int : 118 ms QRS Dur : 096 ms QT Int : 358 ms P-R-T Axes : 066 048 033 degrees QTc Int : 475 ms Sinus tachycardia Incomplete right bundle branch block Borderline ECG No previous ECGs available Referred By: Cheri Zapien Electronically Signed By:LORENE RAY MD
[2023-12-07 14:02] VITALS: BP 109/62; PULSE 112; RESP 16; O2SAT 97; BMI 22.1
[2023-12-07 15:18] LABS: Hematocrit 43.2 % (37.0-47.0); Hemoglobin 14.5 g/dl (12.0-16.0); Mean Corpuscular HGB Conc 33.6 g/dl (31.0-35.0); Mean Corpuscular Volume 86.4 fL (80.0-98.0); Mean Platelet Volume 8.3 fL (9.4-12.3); Platelet Count 609 X10*3/uL (160-400); Red Cell Distribution Width 13.8 % (11.0-16.0); White Blood Count 13.7 X10*3/uL (4.8-10.8)
[2023-12-07 15:21] LABS: Anion Gap 13 (12-20); Blood Urea Nitrogen 6 mg/dL (9-16); Carbon Dioxide 27 mmol/L (22-29); Chloride 100 mmol/L (96-108); Potassium 4.3 mmol/L (3.3-5.1); Sodium 136 mmol/L (135-145)
[2023-12-07 15:22] LABS: Calcium 9.8 mg/dL (8.4-10.2); Creatinine Clr Calc Pharmacy 71.1; Estimated Glomerular Filt Rate > 60; Glucose Random 182 mg/dL (60-115)
[2023-12-12] VITALS (14 sets, daily range): BP systolic 99–152; BP diastolic 63–95; PULSE 73–95; RESP 12–18; TEMP 36.1–36.8; O2SAT 95–100; BMI 22.1; BMI 22.2
--- OUTSIDE RECORDS SUMMARY | 2023-12-12 07:29 | XMS_ITS | Patient Health Record ---
Author Organization [facility] Address [address] [place] [address] Care Team Providers Care Full Service Supervisor Name Role Phone Drew WINCHESTER, Pietro Primary Care Provider Unavailab Dom Vega Jr Unavailable [phone] REASON FOR REFERRAL No Information MEDICATIONS Medication SIG (Take, Route, Frequency, Duration) Notes Start Date End Date Status metFORMIN HCl ER 500 MG TAKE 1 TABLET TW ICE DAILY Oral for 90 Active Atorvastatin Calcium 20 MG TAKE 1 TABLET BY MOUTH EVERY DAY Oral for 90 Active Multivitamin Adults - as directed Orally Active CoQ-10 Active MiraLax (colon prep) 8.3 ounce ((238) grams mixed with Gatorade or Crystal Light orally begin at 5:00 p.m. the day before the procedure for 1 day 12/04/2020 Active IMMUNIZATIONS Vaccine Route Administration Date Status Comme nts Influenza Unknown 05/15/2020 Administered SOCIAL HISTORY Tobacco Use: Social History Observation Description Date Details (start date - stop date) Current Smoker NA - NA Sex Assigned At : Social History Observation Description Sex Assigned At Unknown Tobacco Use/Smoking Question Answer Notes Patient is a current smoker How often do you smoke cigarettes? every day How many cigarettes a day do you smoke? 11-20 Alcohol Screen Question Answer Notes Did you have a drink contain ing alcohol in the past year? Yes How often did you have a dri nk containing alcohol in the past year? 2 to 4 times a month (2 points) How many drinks did you have on a typical day when you were drinking in the past year? 1 or 2 drinks (0 point) How often did you have 6 or more drinks on one occasion in the past year? Never (0 point) Points 2 Interpretation Negative PROBLEMS Problem Type ICD Code Onset Dates Problem Status W/U Status Risk SNOMED Code Notes Problem Gastroesophageal reflux disease with esophagitis without hemorrhage (K21.00) Active confirmed 718201826 Problem Colon cancer screening (Z12.11) Active confirmed 210919155 Problem USP (current) use of oral hypoglycemic drugs (Z79.84) Active confirmed 887981386394130 Problem Encounter for other preprocedural examination (Z01.818) Active confirmed 848807832 PLAN OF TREATMENT Future Test Test Name Order Date COLONOSCOPY 12/04/2020 Insurance Providers Payer Name Payer Address Payer Phone Subscriber Number Group Number Insured Name Patient Relationship to Insured Coverage Start Date Coverage End Date [facility] [address] [address] [place] [address] [id number] BUCK RESENDEZ Self - patient is the insured MEDICAL (GENERAL) HISTORY Medical History History ICD Code elevated cholesterol diabetes mellitus Surgical History Surgery Date(Month/Year) tubal ligation 1994 cyst elbow and wrist
[2023-12-12 07:41] LABS: Glucose, Whole Blood 163 mg/dL (60-115)
[2023-12-12] MEDS: Lactated Ringers 1,000 ML 100 ML IVCONT (07:44)
--- NOTE | 2023-12-12 07:48 | PHA.MEDREC ---
Pharmacy Consult ? Medication Reconciliation Pharmacy has completed the medication reconciliation. Pharmacy has reviewed med rec done by nursing. Formulation of metformin changed to ER and discontinued medication removed from list.
--- NOTE | 2023-12-12 08:14 | MHC.SHP ---
Pre-Procedural Eval Section A - 24 Hr Update-Section A only Date of Service: 12/12/23 Changes since office visit: Yes Patient answered all questions; No Cold of Flu in the past 2 weeks, No New Medical Problems and No Changes in Medication The patient has been examined within 24 hours of the surgical procedure. The History & Physical has been completed within 30 days and I have reviewed it.: No Section B - Complete if H&P > 30 days Chief Complaint: Sigmoid diverticulitis s/p sigmoid colectomy Details of Present Illness: Patient developed leaking from the drain site in the left lower quadrant last week, and this increased with bowel prep. Relevant Family History (Specify if Yes): No Relevant Social History: Tobacco Use Present Medications: see Short Stay Collaborative assessment Medical History: Significant History (Diverticulitis with abscess) History of Previous Operations: Relevant previous surgery/procedure and date(s) (Drainage of intramuscular abscess left lower quadrant) Allergies: Allergies Allergy/AdvReac Type Severity Reaction Status Date / Time mushroom Allergy Intermediate DRY HEAVES Verified 12/07/23 13:57 seafood Allergy Intermediate Nausea and Verified 12/07/23 13:57 Vomiting Review of Systems Sugical H&P ROS: Negative: Constitution, Cardiovascular, Respiratory, Neurological, Psychiatric, Hem-Onc, Allergic/Immunologic, Gastrointestinal, Musculoskeletal, Integumentary, Endocrine and Eyes/Ears/Nose/Throat and Yes, Specify: Genitourinary (Draining abdominal wound left lower quadrant) Exam Surgical H&P Exam: Normal: HEENT, Normal: Heart, Normal: Lungs, Normal: Extremities, Normal: Skin and Normal: Neurological and Significant Findings: Abdomen (Tenderness left lower quadrant with draining wound) Plan Diagnosis/Plan: Unchanged I have reviewed the history and physical and performed a pertinent physical examination on my patient. No changes have occurred unless specified. Time Spent With Patient Time: Total time managing care of this patient today ____ minutes.
--- NOTE | 2023-12-12 08:35 | HO.ANESPROP2 ---
Documented by User: Cheri Zapien NP 12/08/23 11:59 HPI - Anesthesia Eval Consult details Narrative: 53yo F for Hand Assisted Colectomy Laparoscopic, possible open No recent illness No CP/SOB within limits of flank pain DM2: FBS 120-150's Tachycardia: metoprolol Smoker: 30+ PYH. No inhalers PMFSH Active Problems Active Problems: All Active Problems Diverticulitis (Acute) Abdominal wall abscess (Acute) Nicotine dependence, cigarettes, uncomplicated (Acute) Past Medical History Medical History History of diverticular abscess Abdominal mass Nicotine dependence, cigarettes, uncomplicated Hyperlipidemia Type 2 diabetes mellitus (~2013) Family History Family history of problems with anesthesia: No Surgical History Surgical History History of surgical removal of ganglion cyst (~1996) History of excision of hemangioma (~2021) History of colonoscopy (~2020) History of excision of epidermal inclusion cyst (~2022) History of tubal ligation (~1994) History of elbow surgery (~2013) History of Problems with Anesthesia: No Social History Social History Household Members: Spouse Housing: House Are you a primary ocular care aide to a significant other at home: No Do you presently have visiting nurse or other home services: No Comment: aware Patient Tobacco Use Status: Current everyday Tobacco user Tobacco use type: Cigarette Cigarette Packs Per Day: 1 Cigarettes Per Day: 20.0 Years Smoked: (onset 16yo, 1ppd x 36yrs, 30+PYH) Smoked in Last 30 Days: Yes Patient Interested in Nicotine Replacement: No Second Hand Smoke Exposure: Yes () Use of substances other than those prescribed or required for medical reasons: No Have you been hit, kicked, punched, or otherwise hurt by someone within the past year? 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 Allergies Allergy/AdvReac Type Severity Reaction Status Date / Time mushroom Allergy Intermediate DRY HEAVES Verified 12/07/23 13:57 seafood Allergy Intermediate Nausea and Verified 12/07/23 13:57 Vomiting Home Medications ?Medication ?Instructions ?Recorded ?Confirmed ?Last Taken ?Type atorvastatin 20 mg tablet 20 mg PO BEDTIME 02/03/21 12/07/23 Unknown History metformin 500 mg tablet,extended 1,000 mg PO BEDTIME 02/03/21 12/07/23 Unknown History release 24 hr metoprolol succinate 25 mg 25 mg PO BEDTIME 11/10/22 12/12/23 12/12/23 History tablet,extended release 24 hr metformin 500 mg tablet,extended 500 mg PO DAILY 12/12/23 12/12/23 Unknown History release 24 hr Exam Height,Weight and Vital Signs: Height 5 ft Weight 51.256 kg Last Vital Signs Pulse 112 H 12/07/23 14:02 Resp 16 12/07/23 14:02 BP 109/62 12/07/23 14:02 Pulse Ox 97 12/07/23 14:02 O2 Del Method Room Air 12/07/23 14:02 Pertinent Lab Results Pertinent Lab Results: Lab Results 12/07/23 12/07/23 Range/Units 14:50 Unknown WBC 13.7 H (4.8-10.8) X10*3/uL RBC 5.00 (4.20-5.50) X10*6/uL Hgb 14.5 (12.0-16.0) g/dl Hct 43.2 (37.0-47.0) % MCV 86.4 (80.0-98.0) fL MCH 29.0 (27.0-33.0) pg MCHC 33.6 (31.0-35.0) g/dl RDW 13.8 (11.0-16.0) % Plt Count 609 H (160-400) X10*3/uL MPV 8.3 L (9.4-12.3) fL Absolute Nucleated RBC 0.000 (0.0-0.012) X10*3/uL Nucleated RBC % (auto) 0.0 (0.0-0.2) /100WBC Sodium 136 (135-145) mmol/L Potassium 4.3 (3.3-5.1) mmol/L Chloride 100 (96-108) mmol/L Carbon Dioxide 27 (22-29) mmol/L Anion Gap 13 (12-20) BUN 6 L (9-16) mg/dL Creatinine 0.65 (0.5-1.4) mg/dL Estim Creat Clear Calc 71.1 Estimated GFR > 60 Random Glucose 182 H (60-115) mg/dL Calcium 9.8 D (8.4-10.2) mg/dL Blood Type B Positive Antibody Screen NEGATIVE Laboratory Tests 11/05/23 07:00 Hemoglobin A1c % 6.9 H AST 25 ALT 19 Total Creatine Kinase 35 Narrative Narrative: EKG 11/2023 Vent. Rate : 106 BPM Atrial Rate : 106 BPM P-R Int : 118 ms QRS Dur : 096 ms QT Int : 358 ms P-R-T Axes : 066 048 033 degrees QTc Int : 475 ms Sinus tachycardia Incomplete right bundle branch block Borderline ECG No previous ECGs available CT abdomen pelvis w IV con 11/2023 IMPRESSION: 1. Multilocular abscess in the left anterior abdominal wall with extension into the peritoneal cavity and cutaneous component as described. 2. Possible fistula to the descending colon. 3. Stable bilateral adrenal gland nodules. 4. Bilateral renal cysts, unchanged. 5. Right nephrolithiasis, unchanged. 6. Duodenal diverticulum. 7. Diverticulosis without diverticulitis. PFT 2022 SPIROMETRY: FEV1 to FVC of 77% with an FEV1 of 2.02 L, which is 86% predicted and an FVC of 2.62 L, which is 87% predicted. Maximum voluntary ventilation 115% predicted. No significant response to bronchodilators noted. LUNG VOLUMES: Total lung capacity 104% predicted. Residual volume 131% predicted. DIFFUSION CAPACITY: DLCO of 77% predicted. COMPARISONS: None. INTERPRETATION: No obstructive nor restrictive ventilatory defects identified. No significant response to bronchodilators noted. Lung volumes do demonstrate evidence of air trapping, which could be secondary to small airway disease and respiratory bronchiolitis and smoking. Expiratory reserve volume is also decreased. Diffusion capacity also demonstrates a mild diffusion impairment. Clinical correlation warranted. Airway Mallampati Class: III TM Dist: >3cm Neck ROM: Full Loose/Missing/Broken Teeth: Yes (Left molar pulled) Heart: Tachy, reg Lungs: Dim throughout Assessment and Plan Assessment Anesthesia Assessment: Anesthesia Plan Discussed, Smoking Cess. Discussed and PAT Visit Final Anesthetic Review Family History of Problems with Anesthesia: No History of Problems with Anesthesia: No Documented by User: Naila Rosenthal DO 12/12/23 08:38 [facility] Past Medical History Medical History History of diverticular abscess Abdominal mass Nicotine dependence, cigarettes, uncomplicated Hyperlipidemia Type 2 diabetes mellitus (~2013) Family History Family history of problems with anesthesia: No Surgical History Surgical History History of surgical removal of ganglion cyst (~1996) History of excision of hemangioma (~2021) History of colonoscopy (~2020) History of excision of epidermal inclusion cyst (~2022) History of tubal ligation (~1994) History of elbow surgery (~2013) History of Problems with Anesthesia: No Social History Social History Household Members: Spouse Housing: House Are you a primary ocular care aide to a significant other at home: No Do you presently have visiting nurse or other home services: No Comment: aware Patient Tobacco Use Status: Current everyday Tobacco user Tobacco use type: Cigarette Cigarette Packs Per Day: 1 Cigarettes Per Day: 20.0 Years Smoked: (onset 16yo, 1ppd x 36yrs, 30+PYH) Smoked in Last 30 Days: Yes Patient Interested in Nicotine Replacement: No Second Hand Smoke Exposure: Yes () Use of substances other than those prescribed or required for medical reasons: No Have you been hit, kicked, punched, or otherwise hurt by someone within the past year? 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 Allergies Allergy/AdvReac Type Severity Reaction Status Date / Time mushroom Allergy Intermediate DRY HEAVES Verified 12/07/23 13:57 seafood Allergy Intermediate Nausea and Verified 12/07/23 13:57 Vomiting Home Medications ?Medication ?Instructions ?Recorded ?Confirmed ?Last Taken ?Type atorvastatin 20 mg tablet 20 mg PO BEDTIME 02/03/21 12/07/23 Unknown History metformin 500 mg tablet,extended 1,000 mg PO BEDTIME 02/03/21 12/07/23 Unknown History release 24 hr metoprolol succinate 25 mg 25 mg PO BEDTIME 11/10/22 12/12/23 12/12/23 History tablet,extended release 24 hr metformin 500 mg tablet,extended 500 mg PO DAILY 12/12/23 12/12/23 Unknown History release 24 hr Exam Exam Date and Time: December 12, 2023 0835 Height,Weight and Vital Signs: Vital Signs Pulse Rate 112 H 12/07/23 14:02 Respiratory Rate 16 12/07/23 14:02 Blood Pressure 109/62 12/07/23 14:02 Pulse Oximetry 97 12/07/23 14:02 Oxygen Delivery Method Room Air 12/07/23 14:02 Temperature 98.2 F 12/12/23 07:45 Pulse Rate 93 12/12/23 07:45 Respiratory Rate 18 12/12/23 07:45 Blood Pressure 101/68 12/12/23 07:45 Pulse Oximetry 98 12/12/23 07:45 Oxygen Delivery Method Room Air 12/12/23 07:45 Height 5 ft Weight 51.256 kg Last Vital Signs Pulse 112 H 12/07/23 14:02 Resp 16 12/07/23 14:02 BP 109/62 12/07/23 14:02 Pulse Ox 97 12/07/23 14:02 O2 Del Method Room Air 12/07/23 14:02 Airway Mallampati Class: III TM Dist: >3cm Neck ROM: Full Loose/Missing/Broken Teeth: Yes (patient denies any loose or broken teeth but has a few missing teeth) Heart: S1S2 Lungs: Diminished B/L Assessment and Plan Assessment Anesthesia Assessment: Anesthesia Plan Discussed and Chart Reviewed Final Anesthetic Review Family History of Problems with Anesthesia: No History of Problems with Anesthesia: No NPO: Yes ASA Class: II Final Preanesthetic Review: No Changes in Pt Med Stat, Meds/Allgs Chart Reviewed, Consent Obtained/Reviewed and Anes Risks/Benef Reviewed Patient Risk: Low Procedure Risk: Low Anesthetic Plan Anesthetic Plan: GA and Agree w/ Assess. and Plan Disposition: Standard PACU
--- NOTE | 2023-12-12 11:34 | W.PM.OPN ---
Operative Note Operative Note Date of Service: 12/12/23 Narrative: Preoperative diagnosis: Sigmoid diverticulitis with abdominal wall abscess Postoperative diagnosis: Same Procedure: Drainage of abdominal wall abscess, hand assisted laparoscopic sigmoid colectomy with colorectal anastomosis, closure of enterocutaneous fistula. Surgeon: Nilson Larios MD [place] Operator: Tova Bills PA-C Anesthesia: General endotracheal Indications for procedure: 53-year-old female patient with several recurrent episodes of diverticulitis involving the sigmoid colon presenting recently with an abdominal wall abscess which was drained percutaneously Interventional Radiology. 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 A repeat CT abdomen and pelvis revealed 2 areas of sigmoid diverticulitis involving the proximal and distal sigmoid colon. She presents today for closure of the enterocutaneous fistula, drainage of the abdominal wall abscess and sigmoid colectomy. 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 Phlegmon is noted in the abdominal wall and abdominal cavity adjacent to the sigmoid colon with an abscess collection adjacent to the colon wall. Second area of diverticulitis noted in the distal sigmoid colon. Bowel below and above this is normal in appearance. Specimen: Sigmoid colon Estimated blood loss: 10 mL Complications: None Procedure details: Patient was brought to the OR and placed in a supine position. After administering general anesthesia the patient's abdomen was prepped with ChloraPrep and draped in a sterile fashion. A surgical time-out was called the consent confirmed. Patient received preoperative antibiotics and Venodyne boots were in place. Local anesthesia was infiltrated in the lower midline. A 7.5 cm incision was then made in the midline just above the pubis. This was carried out through subcutaneous tissue, through linea alba into the peritoneal cavity. A hand port was then inserted and the abdomen insufflated to a pressure of 15 mmHg. A 5 mm trocar was placed in the upper midline just above the umbilicus and a 2nd placed in the left upper quadrant. A 12 mm trocar was then placed in the right upper quadrant. The patient was then placed in a Trendelenburg position and rotated to the left.. Using the hand port the sigmoid colon was retracted medially. LigaSure was then used to dissect along the peritoneal attachments. Areas of attachment at the area of diverticulitis was identified. As noted above an area of fistula was identified in the proximal sigmoid colon. This was gently taken down using LigaSure to include a portion of the peritoneum of the abdominal wall. A small abscess was identified and drained. Phlegmon was noted surrounding this. Dissection was continued down along the sigmoid colon to include a 2nd area of diverticulitis slightly distal. The left colon was then taken down along the white line of Toldt and mobilized medially. The splenic flexure was then mobilized past the midportion of the transverse colon to allow full mobilization. An area just proximal to the area of fistula was identified as an area of resection. LigaSure was used to dissect the mesentery just below the colon wall. An Endo-CAMILLE was then obtained and used to divide the colon using a purple 60 stapler. Mesentery of the sigmoid colon was then divided using LigaSure. The sigmoid artery was identified and doubly ligated using hemoclips. Dissection was continued down over the pelvic brim to the proximal rectum. This was beyond the area of the 2nd diverticular area. A refill of the Endo-CAMILLE was then used to divide the distal sigmoid colon at the rectal junction. Specimen was then removed and sent to pathology for further examination. Proximal colon was then identified and further mobilized as necessary along the mesentery. The abdomen was then desufflated and the hand port removed temporarily. A pursestring stapler was fired of the distal descending colon. EEA sizers were then used to dilate the distal descending colon. A 28 mm EEA stapler was then obtained. The anvil was placed into the distal descending colon and the pursestring tied off. Attention was then directed to the rectum. EEA sizers were used to dilate the rectum up to a 28. The EEA stapler was then advanced into the rectum at the rectal stump. The spike was then passed through the wall of the proximal rectum and the anvil attached. Stapler was then fired. Prior to releasing the stapler the staple line was reinforced using interrupted Lembert 3-0 Surgilon sutures to reinforce the anastomosis. Stapler was then removed. A leak test was then performed by instilling air into the rectum while filling the abdominal cavity with saline solution. No leak could be identified. The abdomen was then thoroughly irrigated and suctioned dry. Gowns and gloves were changed at this point. Fascia was then closed using a running looped 0 PDS suture. Skin was closed in all incisions using skin nico. Sterile dressings were then applied. The patient tolerated the procedure well. Sponge, instrument, and needle counts reported as correct. Patient was transferred to PACU in stable condition.
[2023-12-12 13:26] LABS: Glucose, Whole Blood 205 mg/dL (60-115)
[2023-12-12] MEDS: Insulin Lispro 100 UNIT/ML 3 ML VIAL SUBCUT ×3 (13:30→21:06)
[2023-12-12] MEDS: Piperacillin Sodium/Tazobactam 3.375 GM in 0.9 % Sodium Chloride 50 ML IV ×3 (13:30→23:43)
[2023-12-12] MEDS: Dextrose 5 % and Lactated Ring 1,000 ML 125 ML IVCONT ×2 (13:57→21:51)
--- NOTE | 2023-12-12 14:00 | P.CONHOSP_ITS ---
History of Present Illness Data of Consult Service Date: 12/12/23 Requesting physician: Nilson Larios Primary Care Provider: Pietro Russell MD [facility] Reason for consult: medical management 53-year-old female with pertinent history of sep-[id number] diabetes mellitus, mixed hyperlipidemia, tobacco use disorder admitted to general surgery for management of sigmoid diverticulitis with abdominal wall abscess with consult placed to hospitalist service for medical management. is at bedside during examination. She is currenlty reporting fatigue and lower abd pain. NO n/v, shortness of breath, lightheadedness or chest pain. No alcohol use, marijuana use, or illicit drug use. She has a current 1 pack per day cigarette smoker. Review of Systems 2 Review of Systems: General: No fevers, malaise, unintentional weight loss HEENT: No blurred vision, diplopia. No sore throat, nasal congestion, rhinorrhea, sinus pain, ear pain Cardiovascular: No chest pain, palpitations, or leg edema Respiratory: No shortness of breath, wheezing, cough GI: +abd pain. No nausea, vomiting, diarrhea, constipation, melena, hematochezia : No dysuria, hematuria, increased urinary frequency, decreased urinary output MSK: No myalgia, back pain Neuro: No headaches, weakness, paresthesias Skin: No rashes or lesions PMFSH Medical History History of diverticular abscess Abdominal mass Nicotine dependence, cigarettes, uncomplicated Hyperlipidemia Type 2 diabetes mellitus (~2013) Surgical History History of surgical removal of ganglion cyst (~1996) History of excision of hemangioma (~2021) History of colonoscopy (~2020) History of excision of epidermal inclusion cyst (~2022) History of tubal ligation (~1994) History of elbow surgery (~2013) Social History Household Members: Family Housing: House Are you a primary manager care management to a significant other at home: No Do you presently have visiting nurse or other home services: No Comment: counts correct Patient Tobacco Use Status: Current everyday Tobacco user Tobacco use type: Cigarette Cigarette Packs Per Day: 1 Cigarettes Per Day: 20.0 Years Smoked: (onset 16yo, 1ppd x 36yrs, 30+PYH) Smoked in Last 30 Days: Yes e-Cigarette/Vaping Use: Never Used Patient Interested in Nicotine Replacement: No Patient Given Instructions on How to Stop Smoking: Yes Date Education Initiated: 12/12/23 Second Hand Smoke Exposure: Yes Use of substances other than those prescribed or required for medical reasons: No Have you been hit, kicked, punched, or otherwise hurt by someone within the past year? If so, by whom?: No Do you feel safe in your current relationship?: Yes Is there a partner from a previous relationship who is making you feel unsafe now?: No Are you made to feel afraid or neglected: No Are you DNR?: No Advance Directives: No Advance Directives Information Provided: Yes Advance Directives on File: No Do you have a plan to hurt others: No Plan Recently lost weight without trying: No How much weight loss: Not applicable Eating poorly because of decreased appetite: No Nutrition screen score: 0 Nutrition Risks: No Nutritional Risk Patient : No FDLMP: 2021 : No Poor oral hygiene: No service: No Current occupational status: employed 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 Hydromorphone HCl (Hydromorphone Hcl 0.5 Mg/0.5 Ml Syringe) 0.5 mg IVPUSH Q3H PRN; Protocol PRN Reason: Pain, Severe (Pain Scale 7-10) Piperacillin Sod/Tazobactam (Sod 3.375 gm/ Sodium Chloride) 50 mls @ 100 mls/hr IV Q6H LOLITA Last Admin: 12/12/23 13:30 Dose: 100 mls/hr Acetaminophen (Ofirmev) 1,000 mg in 100 mls @ 400 mls/hr IV Q6H LOLITA Dextrose/Lactated Ringer's (D5lr) 1,000 mls @ 125 mls/hr IVCONT .Q8H LOLITA Dextrose (D10) 250 mls @ 750 mls/hr IV Q15M PRN; Protocol PRN Reason: per Hypoglycemia Standing Ord. Insulin Human Lispro (Insulin Lispro 100 Unit/Ml 3 Ml Vial) 0 unit SUBCUT QIDACHS [facility]; Protocol Stop: 12/13/23 13:03 Last Admin: 12/12/23 13:30 Dose: 4 unit Ondansetron HCl (Ondansetron Hcl 4 Mg/2 Ml Vial) 4 mg IVPUSH QID PRN PRN Reason: Nausea Oxycodone HCl (Oxycodone Hcl Immed Release 5 Mg Tablet) 5 mg PO Q6H PRN PRN Reason: Pain, Moderate(Pain Scale 4-6) Sodium Chloride (0.9 % Sodium Chloride Flush 3 Ml Syringe) [facility] Zolpidem Tartrate (Zolpidem Tartrate 5 Mg Tablet) 5 mg PO BEDTIME PRN PRN Reason: Insomnia Home Medications ?Medication ?Instructions ?Recorded ?Confirmed ?Last Taken ?Type atorvastatin 20 mg tablet 20 mg PO BEDTIME 02/03/21 12/07/23 Unknown History metformin 500 mg tablet,extended 1,000 mg PO BEDTIME 02/03/21 12/07/23 Unknown History release 24 hr metoprolol succinate 25 mg 25 mg PO BEDTIME 11/10/22 12/12/23 12/12/23 History tablet,extended release 24 hr metformin 500 mg tablet,extended 500 mg PO DAILY 12/12/23 12/12/23 Unknown History release 24 hr Physical Exam 2 Vital Signs and Narrative: Vital Signs: Last Vital Signs Temp 97 F 12/12/23 13:16 Pulse 92 12/12/23 13:16 Resp 16 12/12/23 13:16 BP 129/77 12/12/23 13:16 Pulse Ox 98 12/12/23 13:16 O2 Del Method Room Air 12/12/23 13:16 O2 Flow Rate 2 12/12/23 12:45 BMI result Body Mass Index 22.2 Constitutional - Awake and Alert, No apparent distress Eyes - PERRLA, EOMI Cardiovascular - S1S2, RRR, No edema Respiratory - Normal lung expansion, Normal respiratory effort, No respiratory distress, CTA bilaterally Extremities - no calf tenderness bilaterally, no swelling Skin - Warm/Dry Neurological - Alert & oriented x3 Psychological - Appropriate affect Results Labs 12/07/23 14:50 12/07/23 Unknown Labs: Laboratory Results - last 24 hr 12/12/23 12/12/23 07:38 13:21 POC Glucose 163 H 205 H Assessment and Plan (1) Abdominal wall abscess: Status: Acute (2) Diverticulitis: Status: Acute Plan 53-year-old female with pertinent history of nyv-[id number] diabetes mellitus, mixed hyperlipidemia, tobacco use disorder admitted to general surgery for management of diverticular abscess with consult placed to hospitalist service for medical management. #Diverticulitis with abd wall abscess -s/p abd wall abscess drainage, and assisted lap sigmoid colectomy with colorectal anastomosis and closure of enterocutaneous fistula pod 0 -plan per General surgery -clear liquid diet per General surgery # [id number] type 2 diabetes with hyperglycemia -POC glucose, advanced to diabetic diet -Humalog on sliding scale, hold metformin # HLD -statin on hold per General surgery Thank you for the consult, will continue following
[2023-12-12] MEDS: Acetaminophen 1,000 MG/100 ML PIGGYBACK 400 MG IV ×2 (14:01→18:30)
[2023-12-12] MEDS: HYDROmorphone HCl 0.5 MG/0.5 ML SYRINGE IVPUSH ×3 (14:07→23:40)
--- NOTE | 2023-12-12 15:12 | PM.EVENT ---
Event Note Date of Service: 12/12/23 Event Note: Post op check: Patient awake and alert. Reports some pain in the lower abdomen Wounds clean and intact VELASQUEZ with minimal bloody discharge Patient stable postop. Time Spent With Patient Time: Total time managing care of this patient today ____ minutes.
[2023-12-12 16:27] LABS: Glucose, Whole Blood 190 mg/dL (60-115)
[2023-12-12 20:28] LABS: Glucose, Whole Blood 263 mg/dL (60-115)
[2023-12-12] MEDS: Zolpidem Tartrate 5 MG TABLET PO (21:06)
[2023-12-12] MEDS: oxyCODONE HCl Immed Release 5 MG TABLET PO (21:06)
[2023-12-12] MEDS: 0.9 % Sodium Chloride Flush 3 ML SYRINGE IVFLUSH (23:37)
[2023-12-13] MEDS: Acetaminophen 1,000 MG/100 ML PIGGYBACK 400 MG IV ×4 (00:20→19:28)
[2023-12-13 03:39] VITALS: BP 93/57; PULSE 77; RESP 16; TEMP 36.2; O2SAT 95
[2023-12-13] MEDS: HYDROmorphone HCl 0.5 MG/0.5 ML SYRINGE IVPUSH ×2 (04:33→10:02)
[2023-12-13] MEDS: Piperacillin Sodium/Tazobactam 3.375 GM in 0.9 % Sodium Chloride 50 ML IV ×3 (05:32→18:11)
[2023-12-13] MEDS: Dextrose 5 % and Lactated Ring 1,000 ML 125 ML IVCONT (06:18)
[2023-12-13 07:01] LABS: MANUAL DIFF FLAG NO
[2023-12-13 07:05] LABS: Basophils Percent Auto 0.2 % (0-2); Hematocrit 36.3 % (37.0-47.0); Hemoglobin 12.5 g/dl (12.0-16.0); Imm Gran Abs Auto 0.13 X10*3/uL (0.00-0.03); Imm Gran Pct Auto 0.6 % (0.0-0.4); Lymphocytes Absolute Auto 2.7 X10*3/uL (1.2-4.9); Lymphocytes Percent Auto 13.3 % (20-40); Mean Corpuscular HGB Conc 34.4 g/dl (31.0-35.0); Mean Corpuscular Hemoglobin 29.6 pg (27.0-33.0); Mean Corpuscular Volume 85.8 fL (80.0-98.0); Mean Platelet Volume 8.4 fL (9.4-12.3); Monocytes Absolute Auto 0.8 X10*3/uL (0.1-1.2); Monocytes Percent Auto 4.1 % (2-11); Neutrophils Absolute Auto 16.5 x10*3/uL (2.0-8.3); Neutrophils Percent Auto 81.8 % (45-73); Platelet Count 563 X10*3/uL (160-400); Red Blood Count 4.23 X10*6/uL (4.20-5.50); Red Cell Distribution Width 13.7 % (11.0-16.0); White Blood Count 20.2 X10*3/uL (4.8-10.8)
[2023-12-13 07:24] LABS: Alanine Aminotransferase 8 U/L (0-31); Albumin Level 2.8 g/dL (3.5-5.0); Alkaline Phosphatase 69 U/L (39-117); Anion Gap 14 (12-20); Aspartate Amino Transferase 10 U/L (5-31); Bilirubin Total 0.3 mg/dL (0.0-1.0); Blood Urea Nitrogen 3 mg/dL (9-16); Carbon Dioxide 25 mmol/L (22-29); Chloride 104 mmol/L (96-108); Creatinine Clr Calc Pharmacy 85.5; Estimated Glomerular Filt Rate > 60; Glucose Random 198 mg/dL (60-115); Potassium 3.2 mmol/L (3.3-5.1); Sodium 140 mmol/L (135-145); Total Protein 5.8 g/dL (6.5-8.0)
--- NOTE | 2023-12-13 07:34 | P.PNGS_ITS ---
<Statement entered by Nilson Larios MD - 12/13/23 07:39> Patient seen and examined independently and I concur with the above assessment and plan. OOB and ambulation encouraged today. Subjective Subjective Date of Service: 12/13/23 Interval history: C/o severe pain after being rolled last night. Feels bloated. Denies flatus. Tolerating some clear liquids. Has not been OOB yet. Physical Exam 2 Vital Signs: Vital Signs: Last Vital Signs Temp 97.1 F 12/13/23 03:39 Pulse 77 12/13/23 03:39 Resp 16 12/13/23 03:39 BP 93/57 L 12/13/23 03:39 Pulse Ox 95 12/13/23 03:39 O2 Del Method Room Air 12/13/23 03:39 O2 Flow Rate 2 12/12/23 20:00 BMI result Body Mass Index 22.2 Const: General: comfortable, no acute distress and alert O rientation/consciousness: patient oriented x3 Resp: Effort & Inspection: normal respiratory effort GI: Other: VELASQUEZ drain with some purulent drainage Inspection: Yes distended and Yes incision (dressings c/d/i) Palpation (GI): Soft to palpation, Tenderness to palpation present (GI) (incisional) and no guarding Percussion: Yes tympanic to percussion Skin: General skin exam: no rashes or lesions noted Neuro: General: patient oriented x3 and moves all extremities Objective Data Active Medications Glucose (Glucose Gel 15 Gm Gel..Gram.) 15 gm PO Q15M PRN; Protocol PRN Reason: per Hypoglycemia Standing Ord. Hydromorphone HCl (Hydromorphone Hcl 0.5 Mg/0.5 Ml Syringe) 0.5 mg IVPUSH Q3H PRN; Protocol PRN Reason: Pain, Severe (Pain Scale 7-10) Last Admin: 12/13/23 04:33 Dose: 0.5 mg Documented By: STEFFANY Piperacillin Sod/Tazobactam (Sod 3.375 gm/ Sodium Chloride) 50 mls @ 100 mls/hr IV Q6H [facility] Last Infusion: 12/13/23 06:02 Dose: Infused Documented By: STEFFANY Acetaminophen (Ofirmev) 1,000 mg in 100 mls @ 400 mls/hr IV Q6H [facility] Last Infusion: 12/13/23 06:19 Dose: Infused Documented By: STEFFANY Dextrose/Lactated Ringer's (D5lr) 1,000 mls @ 125 mls/hr IVCONT .Q8H [facility] Last Admin: 12/13/23 06:18 Dose: 125 mls/hr Documented By: STEFFANY Dextrose (D10) 250 mls @ 750 mls/hr IV Q15M PRN; Protocol PRN Reason: per Hypoglycemia Standing Ord. Insulin Human Lispro (Insulin Lispro 100 Unit/Ml 3 Ml Vial) 0 unit SUBCUT QIDACHS [facility]; Protocol Stop: 12/13/23 13:03 Last Admin: 12/12/23 21:06 Dose: 6 unit Documented By: SARAH Nicotine (Nicotine 21 Mg Patch.Td24) 21 mg TRANSDERMA DAILY PRN PRN Reason: Nicotine Cravings Ondansetron HCl (Ondansetron Hcl 4 Mg/2 Ml Vial) 4 mg IVPUSH QID PRN PRN Reason: Nausea Oxycodone HCl (Oxycodone Hcl Immed Release 5 Mg Tablet) 5 mg PO Q6H PRN PRN Reason: Pain, Moderate(Pain Scale 4-6) Last Admin: 12/12/23 21:06 Dose: 5 mg Documented By: SARAH Sodium Chloride (0.9 % Sodium Chloride Flush 3 Ml Syringe) 3 ml IVFLUSH [facility] Last Admin: 12/12/23 23:37 Dose: 3 ml Documented By: STEFFANY Zolpidem Tartrate (Zolpidem Tartrate 5 Mg Tablet) 5 mg PO BEDTIME PRN PRN Reason: Insomnia Last Admin: 12/12/23 21:06 Dose: 5 mg Documented By: SARAH Labs 12/13/23 05:54 12/13/23 05:54 Labs: Laboratory Results - last 24 hr 12/12/23 12/12/23 12/12/23 07:38 13:21 16:23 MCV MCH MCHC RDW Plt Count MPV Immature Gran % (Auto) Neut % (Auto) Lymph % (Auto) [place] % (Auto) Eos % (Auto) Baso % (Auto) Lymph # (Auto) [place] # (Auto) Eos # (Auto) Baso # (Auto) Abs Immat Gran (auto) Absolute Neuts (auto) Absolute Nucleated RBC Nucleated RBC % (auto) Anion Gap Estim Creat Clear Calc Estimated GFR POC Glucose 163 H 205 H 190 H Random Glucose Calcium Total Bilirubin AST ALT Alkaline Phosphatase Total Protein Albumin 12/12/23 12/13/23 20:20 05:54 MCV 85.8 MCH 29.6 MCHC 34.4 RDW 13.7 Plt Count 563 H MPV 8.4 L Immature Gran % (Auto) 0.6 H Neut % (Auto) 81.8 H Lymph % (Auto) 13.3 L [place] % (Auto) 4.1 Eos % (Auto) 0.0 Baso % (Auto) 0.2 Lymph # (Auto) 2.7 [place] # (Auto) 0.8 Eos # (Auto) 0.0 Baso # (Auto) 0.0 Abs Immat Gran (auto) 0.13 H Absolute Neuts (auto) 16.5 H Absolute Nucleated RBC 0.000 Nucleated RBC % (auto) 0.0 Anion Gap 14 Estim Creat Clear Calc 85.5 Estimated GFR > 60 POC Glucose 263 H Random Glucose 198 H Calcium 9.0 D Total Bilirubin 0.3 AST 10 ALT 8 Alkaline Phosphatase 69 Total Protein 5.8 L Albumin 2.8 L Procedures Date of Service Date of Service: 12/13/23 Progress Note: A&P Assessment and plan (1) Abdominal wall abscess: Status: Acute (2) Diverticulitis: Status: Acute Plan POD #1 s/p drainage of abdominal wall abscess, hand assisted laparoscopic sigmoid colectomy with colorectal anastomosis, closure of enterocutaneous fistula for diverticulitis. C/o severe pain post op but overall clinically appearing well. VSS. Abd is distended this morning but softly, dressings clean, VELASQUEZ with some purulent output. Dc mary beth, varghese IVF. Encouraged OOB and ambulation today, IS use. Cont clear liquids until distention improved, evidence of GI function. WBC count elevated, on IV zosyn for abdominal wall abscess. Repeat in am. Time Spent With Patient Time: Total time managing care of this patient today ____ minutes. Quality Stroke Does the patient have a stroke diagnosis?: No VTE Prior VTE?: No VTE Risk Level:: Surgical - moderate VTE Device Contraindication: N/A - Device Ordered VTE Drug Contraindication: Treatment Not Indicated
[2023-12-13 07:40] LABS: Glucose, Whole Blood 189 mg/dL (60-115)
[2023-12-13 07:57] VITALS: BP 99/50; PULSE 72; RESP 14; TEMP 36.5; O2SAT 96
[2023-12-13] MEDS: Insulin Lispro 100 UNIT/ML 3 ML VIAL SUBCUT ×2 (09:01→12:09)
[2023-12-13] MEDS: 0.9 % Sodium Chloride Flush 3 ML SYRINGE IVFLUSH ×2 (09:02→19:29)
[2023-12-13] MEDS: KCl 20 mEq in 5 % Dex/Lact Rin 20 MEQ/1,000 ML IV.SOLN 100 MEQ IVCONT ×2 (09:55→17:22)
--- NOTE | 2023-12-13 09:57 | MHC.CM.PN ---
pt lives with is independent and working dc plan home no servies
[2023-12-13 10:02] VITALS: RESP 14
[2023-12-13 11:17] LABS: Glucose, Whole Blood 153 mg/dL (60-115)
[2023-12-13 12:00] VITALS: BP 106/57; PULSE 90; RESP 12; TEMP 36.2; O2SAT 96
[2023-12-13] MEDS: oxyCODONE HCl Immed Release 5 MG TABLET PO ×2 (12:09→18:10)
--- NOTE | 2023-12-13 12:59 | P.PNIM_ITS ---
Subjective Subjective Date of Service: 12/13/23 Interval History: Being followed for diabetes mellitus, patient remains on clear liquid diet complaining of abdominal pain, bloating, no nausea, no vomiting, pain was worse due to rolling in bed last night, no fevers, no chills. Review of Systems All other system reviewed and negative. Physical Exam 2 Vital Signs: Vital Signs: Last Vital Signs Temp 97.7 F 12/13/23 07:57 Pulse 72 12/13/23 07:57 Resp 14 12/13/23 10:02 BP 99/50 L 12/13/23 07:57 Pulse Ox 96 12/13/23 07:57 O2 Del Method Room Air 12/13/23 07:57 O2 Flow Rate 2 12/12/23 20:00 BMI result Body Mass Index 22.2 Const: Other: General awake alert x3, in no acute distress. Neck supple, no JVD. CVS regular rate rhythm, Respiratory lungs clear to auscultation, no respiratory distress, no wheeze, no rhonchi. Gastrointestinal abdomen dressing in place, VELASQUEZ drain with some purulent drainage, tenderness to palpation, no guarding, no rigidity Extremities no edema. Neuro non focal Skin no rash Psych appropriate affect Objective Data Active Medications Glucose (Glucose Gel 15 Gm Gel..Gram.) 15 gm PO Q15M PRN; Protocol PRN Reason: per Hypoglycemia Standing Ord. Hydromorphone HCl (Hydromorphone Hcl 0.5 Mg/0.5 Ml Syringe) 0.5 mg IVPUSH Q3H PRN; Protocol PRN Reason: Pain, Severe (Pain Scale 7-10) Last Admin: 12/13/23 10:02 Dose: 0.5 mg Documented By: ABENA Piperacillin Sod/Tazobactam (Sod 3.375 gm/ Sodium Chloride) 50 mls @ 100 mls/hr IV Q6H [facility] Last Admin: 12/13/23 12:45 Dose: 100 mls/hr Documented By: ABENA Acetaminophen (Ofirmev) 1,000 mg in 100 mls @ 400 mls/hr IV Q6H [facility] Last Infusion: 12/13/23 06:19 Dose: Infused Documented By: STEFFANY Dextrose (D10) 250 mls @ 750 mls/hr IV Q15M PRN; Protocol PRN Reason: per Hypoglycemia Standing Ord. Potassium Cl/Dextrose/Lact Ringer's (Kcl 20 Meq In 5 % Dex/Lact Rin) 20 meq in 1,000 mls @ 100 mls/hr IVCONT .Q10H [facility] Last Admin: 12/13/23 09:55 Dose: 100 mls/hr Documented By: ABENA Insulin Human Lispro (Insulin Lispro 100 Unit/Ml 3 Ml Vial) 0 unit SUBCUT QIDACHS [facility]; Protocol Stop: 12/13/23 13:03 Last Admin: 12/13/23 12:09 Dose: 2 unit Documented By: ABENA Nicotine (Nicotine 21 Mg Patch.Td24) 21 mg TRANSDERMA DAILY PRN PRN Reason: Nicotine Cravings Ondansetron HCl (Ondansetron Hcl 4 Mg/2 Ml Vial) 4 mg IVPUSH QID PRN PRN Reason: Nausea Oxycodone HCl (Oxycodone Hcl Immed Release 5 Mg Tablet) 5 mg PO Q6H PRN PRN Reason: Pain, Moderate(Pain Scale 4-6) Last Admin: 12/13/23 12:09 Dose: 5 mg Documented By: ABENA Sodium Chloride (0.9 % Sodium Chloride Flush 3 Ml Syringe) 3 ml IVFLUSH [facility] Last Admin: 12/13/23 09:02 Dose: 3 ml Documented By: ABENA Zolpidem Tartrate (Zolpidem Tartrate 5 Mg Tablet) 5 mg PO BEDTIME PRN PRN Reason: Insomnia Last Admin: 12/12/23 21:06 Dose: 5 mg Documented By: SARAH Labs 12/13/23 05:54 12/13/23 05:54 Labs: Laboratory Results - last 24 hr 12/12/23 12/12/23 12/12/23 13:21 16:23 20:20 MCV MCH MCHC RDW Plt Count MPV Immature Gran % (Auto) Neut % (Auto) Lymph % (Auto) [place] % (Auto) Eos % (Auto) Baso % (Auto) Lymph # (Auto) [place] # (Auto) Eos # (Auto) Baso # (Auto) Abs Immat Gran (auto) Absolute Neuts (auto) Absolute Nucleated RBC Nucleated RBC % (auto) Anion Gap Estim Creat Clear Calc Estimated GFR POC Glucose 205 H 190 H 263 H Random Glucose Calcium Total Bilirubin AST ALT Alkaline Phosphatase Total Protein Albumin 12/13/23 12/13/23 12/13/23 05:54 07:36 11:09 MCV 85.8 MCH 29.6 MCHC 34.4 RDW 13.7 Plt Count 563 H MPV 8.4 L Immature Gran % (Auto) 0.6 H Neut % (Auto) 81.8 H Lymph % (Auto) 13.3 L [place] % (Auto) 4.1 Eos % (Auto) 0.0 Baso % (Auto) 0.2 Lymph # (Auto) 2.7 [place] # (Auto) 0.8 Eos # (Auto) 0.0 Baso # (Auto) 0.0 Abs Immat Gran (auto) 0.13 H Absolute Neuts (auto) 16.5 H Absolute Nucleated RBC 0.000 Nucleated RBC % (auto) 0.0 Anion Gap 14 Estim Creat Clear Calc 85.5 Estimated GFR > 60 POC Glucose 189 H 153 H Random Glucose 198 H Calcium 9.0 D Total Bilirubin 0.3 AST 10 ALT 8 Alkaline Phosphatase 69 Total Protein 5.8 L Albumin 2.8 L Assessment and Plan (1) Abdominal wall abscess: Status: Acute (2) Diverticulitis: Status: Acute (3) Nicotine dependence, cigarettes, uncomplicated: Status: Acute Plan POD #1 s/p drainage of abdominal wall abscess, hand assisted laparoscopic sigmoid colectomy with colorectal anastomosis, closure of enterocutaneous fistula for diverticulitis. C/o severe pain post op but overall clinically appearing well. VSS. Abd is distended this morning but softly, dressings clean, VELASQUEZ with some purulent output. Dc mary beth, varghese IVF. Encouraged OOB and ambulation today, IS use. Cont clear liquids until distention improved, evidence of GI function. WBC count elevated, on IV zosyn for abdominal wall abscess. Repeat in am. 53-year-old female with pertinent history of qeo-mjbxnjv-wbsbnzfcn diabetes mellitus, mixed hyperlipidemia, tobacco use disorder admitted to general surgery for management of diverticular abscess with consult placed to hospitalist service for medical management. #Diverticulitis with abd wall abscess -s/p abd wall abscess drainage, and assisted lap sigmoid colectomy with colorectal anastomosis and closure of enterocutaneous fistula POD #1 -plan per General surgery -clear liquid diet per General surgery -add incentive spirometry encourage ambulation. # acute hypokalemia will replete and follow labs # qzu-mkyranp-igwqnvonh type 2 diabetes with hyperglycemia -elevated blood sugars likely due to IV d5 -continue Humalog sliding scale,and hold metformin/advanced to diabetic diet when able to tolerate by mouth # HLD -statin on hold per General surgery # tobacco use disorder counseling done on nicotine patch as needed Thank you for the consult, will continue following Quality Stroke Does the patient have a stroke diagnosis?: No VTE Prior VTE?: No VTE Risk Level:: Surgical - moderate VTE Device Contraindication: N/A - Device Ordered VTE Drug Contraindication: Treatment Not Indicated
--- NOTE | 2023-12-13 13:47 | HO.POSTANES ---
Post Anesthesia Evaluation Post Anesthesia Evaluation Date of Service: 12/13/23 Vital Signs: Vital Signs Temp Pulse Resp BP Pulse Ox O2 Del Method 12/13/23 12:00 97.2 F 90 12 106/57 L 96 Room Air 12/13/23 10:02 14 12/13/23 07:57 97.7 F 72 14 99/50 L 96 Room Air 12/13/23 03:39 97.1 F 77 16 93/57 L 95 Room Air Anesthesia: General Mental Status: Awake Pain Control: Satisfactory Nausea/Vomiting: None Hydration: Adequate Anesthesia-Related Issues: No Anes. Related Issues
[2023-12-13 15:24] VITALS: BP 110/60; PULSE 83; RESP 16; TEMP 36.5; O2SAT 98
[2023-12-13 16:17] LABS: Glucose, Whole Blood 142 mg/dL (60-115)
[2023-12-13 19:12] VITALS: BP 106/60; PULSE 96; RESP 18; TEMP 36.2; O2SAT 94
[2023-12-13 19:44] LABS: Glucose, Whole Blood 138 mg/dL (60-115)
[2023-12-14] MEDS: Piperacillin Sodium/Tazobactam 3.375 GM in 0.9 % Sodium Chloride 50 ML IV ×4 (00:06→17:42)
[2023-12-14] MEDS: Acetaminophen 1,000 MG/100 ML PIGGYBACK 400 MG IV ×4 (00:37→18:41)
[2023-12-14 03:28] VITALS: BP 108/71; PULSE 87; RESP 16; TEMP 36.2; O2SAT 96
[2023-12-14] MEDS: KCl 20 mEq in 5 % Dex/Lact Rin 20 MEQ/1,000 ML IV.SOLN 100 MEQ IVCONT ×2 (03:50→14:34)
[2023-12-14] MEDS: oxyCODONE HCl Immed Release 5 MG TABLET PO ×2 (03:52→11:41)
[2023-12-14 05:41] LABS: Hematocrit 33.9 % (37.0-47.0); Hemoglobin 11.5 g/dl (12.0-16.0); Mean Corpuscular HGB Conc 33.9 g/dl (31.0-35.0); Mean Corpuscular Volume 85.6 fL (80.0-98.0); Platelet Count 467 X10*3/uL (160-400); Red Blood Count 3.96 X10*6/uL (4.20-5.50); Red Cell Distribution Width 13.7 % (11.0-16.0); White Blood Count 19.8 X10*3/uL (4.8-10.8)
[2023-12-14 05:55] LABS: Anion Gap 13 (12-20); Blood Urea Nitrogen 3 mg/dL (9-16); Calcium 8.8 mg/dL (8.4-10.2); Carbon Dioxide 24 mmol/L (22-29); Chloride 105 mmol/L (96-108); Creatinine Clr Calc Pharmacy 100.4; Estimated Glomerular Filt Rate > 60; Glucose Random 163 mg/dL (60-115); Potassium 3.1 mmol/L (3.3-5.1); Sodium 139 mmol/L (135-145)
[2023-12-14 07:34] LABS: Glucose, Whole Blood 159 mg/dL (60-115)
[2023-12-14 07:37] VITALS: BP 107/60; PULSE 90; RESP 16; TEMP 36.3; O2SAT 96
--- NOTE | 2023-12-14 08:04 | PM.PNGS ---
Subjective Subjective Date of Service: 12/14/23 Interval history: Passed small amount of flatus but reports belching and continued abdominal bloating. Reports continued incisional pain especially with movement. Physical Exam Vital Signs: Vital Signs: Last Vital Signs Temp 97.4 F 12/14/23 07:37 Pulse 90 12/14/23 07:37 Resp 16 12/14/23 07:37 BP 107/60 12/14/23 07:37 Pulse Ox 96 12/14/23 07:37 O2 Del Method Room Air 12/14/23 07:37 O2 Flow Rate 2 12/12/23 20:00 BMI result Body Mass Index 22.2 Const: General: comfortable, no acute distress and alert Orientation/consciousness: patient oriented x3 Resp: Effort & Inspection: normal respiratory effort GI: Other: VELASQUEZ drain with sanguineous output with some purulence/sediment no significant fullness appreciated at old abscess site Inspection: Yes distended and Yes incision (clean) Palpation (GI): Soft to palpation, Tenderness to palpation present (GI) (incisional) and no guarding Percussion: Yes tympanic to percussion Skin: General skin exam: no rashes or lesions noted Neuro: General: patient oriented x3 Objective Data Active Medications Glucose (Glucose Gel 15 Gm Gel..Gram.) 15 gm PO Q15M PRN; Protocol PRN Reason: per Hypoglycemia Standing Ord. Glucose (Glucose Gel 15 Gm Gel..Gram.) 15 gm PO Q15M PRN; Protocol PRN Reason: per Hypoglycemia Standing Ord. Hydromorphone HCl (Hydromorphone Hcl 0.5 Mg/0.5 Ml Syringe) 0.5 mg IVPUSH Q3H PRN; Protocol PRN Reason: Pain, Severe (Pain Scale 7-10) Last Admin: 12/13/23 10:02 Dose: 0.5 mg Documented By: ABENA Piperacillin Sod/Tazobactam (Sod 3.375 gm/ Sodium Chloride) 50 mls @ 100 mls/hr IV Q6H [facility] Last Infusion: 12/14/23 06:34 Dose: Infused Documented By: STEFFANY Acetaminophen (Ofirmev) 1,000 mg in 100 mls @ 400 mls/hr IV Q6H [facility] Last Infusion: 12/14/23 06:49 Dose: Infused Documented By: STEFFANY Dextrose (D10) 250 mls @ 750 mls/hr IV Q15M PRN; Protocol PRN Reason: per Hypoglycemia Standing Ord. Potassium Cl/Dextrose/Lact Ringer's (Kcl 20 Meq In 5 % Dex/Lact Rin) 20 meq in 1,000 mls @ 100 mls/hr IVCONT .Q10H [facility] Last Admin: 12/14/23 03:50 Dose: 100 mls/hr Documented By: STEFFANY Dextrose (D10) 250 mls @ 750 mls/hr IV Q15M PRN; Protocol PRN Reason: per Hypoglycemia Standing Ord. Insulin Human Lispro (Insulin Lispro 100 Unit/Ml 3 Ml Vial) 0 unit SUBCUT QIDACHS [facility]; Protocol Last Admin: 12/13/23 19:48 Dose: Not Given Documented By: STEFFANY Non-Admin Reason: No Insulin Coverage Nicotine (Nicotine 21 Mg Patch.Td24) 21 mg TRANSDERMA DAILY PRN PRN Reason: Nicotine Cravings Ondansetron HCl (Ondansetron Hcl 4 Mg/2 Ml Vial) 4 mg IVPUSH QID PRN PRN Reason: Nausea Oxycodone HCl (Oxycodone Hcl Immed Release 5 Mg Tablet) 5 mg PO Q6H PRN PRN Reason: Pain, Moderate(Pain Scale 4-6) Last Admin: 12/14/23 03:52 Dose: 5 mg Documented By: STEFFANY Sodium Chloride (0.9 % Sodium Chloride Flush 3 Ml Syringe) 3 ml IVFLUSH [facility] Last Admin: 12/13/23 19:29 Dose: 3 ml Documented By: STEFFANY Zolpidem Tartrate (Zolpidem Tartrate 5 Mg Tablet) 5 mg PO BEDTIME PRN PRN Reason: Insomnia Last Admin: 12/12/23 21:06 Dose: 5 mg Documented By: SARAH Labs 12/14/23 05:30 12/14/23 05:30 Labs: Laboratory Results - last 24 hr 12/13/23 12/13/23 12/13/23 11:09 16:13 19:41 MCV MCH MCHC RDW Plt Count MPV Absolute Nucleated RBC Nucleated RBC % (auto) Anion Gap Estim Creat Clear Calc Estimated GFR POC Glucose 153 H 142 H 138 H Random Glucose Calcium 12/14/23 12/14/23 05:30 07:25 MCV 85.6 MCH 29.0 MCHC 33.9 RDW 13.7 Plt Count 467 H MPV 8.0 L Absolute Nucleated RBC 0.000 Nucleated RBC % (auto) 0.0 Anion Gap 13 Estim Creat Clear Calc 100.4 Estimated GFR > 60 POC Glucose 159 H Random Glucose 163 H Calcium 8.8 Procedures Date of Service Date of Service: 12/14/23 Progress Note: A&P Assessment and plan (1) Abdominal wall abscess: Status: Acute (2) Diverticulitis: Status: Acute Plan POD #2 s/p drainage of abdominal wall abscess, hand assisted laparoscopic sigmoid colectomy with colorectal anastomosis, closure of enterocutaneous fistula for diverticulitis. Some evidence of return of GI function but also with belching and continued abd distention, not significant improved. Will advance to full liquids as tolerated. Encouraged increasing activity today, IS use which I personally brought to the room. WBC count slightly improved this morning, cont IV zosyn. Cont to monitor. No significant output from VELASQUEZ site. Time Spent With Patient Time: Total time managing care of this patient today ____ minutes. Quality Stroke Does the patient have a stroke diagnosis?: No VTE Prior VTE?: No VTE Risk Level:: Surgical - moderate VTE Device Contraindication: N/A - Device Ordered VTE Drug Contraindication: Treatment Not Indicated
[2023-12-14] MEDS: Insulin Lispro 100 UNIT/ML 3 ML VIAL SUBCUT ×2 (08:31→11:41)
[2023-12-14] MEDS: Potassium Chloride ER 20 MEQ TAB.ER.PRT 40 MEQ PO (09:05)
--- NOTE | 2023-12-14 11:47 | P.PNIM_ITS ---
Subjective Subjective Date of Service: 12/14/23 Interval History: Being followed for hyperglycemia with history of diabetes. Feeling better this morning, had a bowel movement tolerating full liquid diet, but not drinking enough fluids denies lightheadedness, no dizziness, blood sugars stable, ambulating and feeling better. Review of Systems All other system reviewed and negative Physical Exam 2 Vital Signs: Vital Signs: Last Vital Signs Temp 97.4 F 12/14/23 07:37 Pulse 90 12/14/23 07:37 Resp 16 12/14/23 07:37 BP 107/60 12/14/23 07:37 Pulse Ox 96 12/14/23 07:37 O2 Del Method Room Air 12/14/23 07:37 O2 Flow Rate 2 12/12/23 20:00 BMI result Body Mass Index 22.2 Const: Other: General awake alert x3, in no acute distress. Neck supple, no JVD. CVS regular rate rhythm, Respiratory lungs clear to auscultation, no respiratory distress, no wheeze, no rhonchi. Gastrointestinal abdomen dressing in place, VELASQUEZ drain with serosanguineous drainage, no guarding, no rigidity Extremities no edema. Neuro non focal Skin no rash Psych appropriate affect Objective Data Active Medications Glucose (Glucose Gel 15 Gm Gel..Gram.) 15 gm PO Q15M PRN; Protocol PRN Reason: per Hypoglycemia Standing Ord. Glucose (Glucose Gel 15 Gm Gel..Gram.) 15 gm PO Q15M PRN; Protocol PRN Reason: per Hypoglycemia Standing Ord. Hydromorphone HCl (Hydromorphone Hcl 0.5 Mg/0.5 Ml Syringe) 0.5 mg IVPUSH Q3H PRN; Protocol PRN Reason: Pain, Severe (Pain Scale 7-10) Last Admin: 12/13/23 10:02 Dose: 0.5 mg Documented By: ABENA Piperacillin Sod/Tazobactam (Sod 3.375 gm/ Sodium Chloride) 50 mls @ 100 mls/hr IV Q6H [facility] Last Admin: 12/14/23 11:41 Dose: 100 mls/hr Documented By: ABENA Acetaminophen (Ofirmev) 1,000 mg in 100 mls @ 400 mls/hr IV Q6H [facility] Last Infusion: 12/14/23 06:49 Dose: Infused Documented By: HO.BOURQC Dextrose (D10) 250 mls @ 750 mls/hr IV Q15M PRN; Protocol PRN Reason: per Hypoglycemia Standing Ord. Potassium Cl/Dextrose/Lact Ringer's (Kcl 20 Meq In 5 % Dex/Lact Rin) 20 meq in 1,000 mls @ 100 mls/hr IVCONT .Q10H [facility] Last Admin: 12/14/23 03:50 Dose: 100 mls/hr Documented By: STEFFANY Dextrose (D10) 250 mls @ 750 mls/hr IV Q15M PRN; Protocol PRN Reason: per Hypoglycemia Standing Ord. Insulin Human Lispro (Insulin Lispro 100 Unit/Ml 3 Ml Vial) 0 unit SUBCUT QIDACHS [facility]; Protocol Last Admin: 12/14/23 11:41 Dose: 2 unit Documented By: ABENA Nicotine (Nicotine 21 Mg Patch.Td24) 21 mg TRANSDERMA DAILY PRN PRN Reason: Nicotine Cravings Ondansetron HCl (Ondansetron Hcl 4 Mg/2 Ml Vial) 4 mg IVPUSH QID PRN PRN Reason: Nausea Oxycodone HCl (Oxycodone Hcl Immed Release 5 Mg Tablet) 5 mg PO Q6H PRN PRN Reason: Pain, Moderate(Pain Scale 4-6) Last Admin: 12/14/23 11:41 Dose: 5 mg Documented By: ABENA Sodium Chloride (0.9 % Sodium Chloride Flush 3 Ml Syringe) 3 ml [facility] Last Admin: 12/14/23 08:33 Dose: Not Given Documented By: ABENA Non-Admin Reason: IV Running Zolpidem Tartrate (Zolpidem Tartrate 5 Mg Tablet) 5 mg PO BEDTIME PRN PRN Reason: Insomnia Last Admin: 12/12/23 21:06 Dose: 5 mg Documented By: SARAH Labs 12/14/23 05:30 12/14/23 05:30 Labs: Laboratory Results - last 24 hr 12/13/23 12/13/23 12/14/23 16:13 19:41 05:30 MCV 85.6 MCH 29.0 MCHC 33.9 RDW 13.7 Plt Count 467 H MPV 8.0 L Absolute Nucleated RBC 0.000 Nucleated RBC % (auto) 0.0 Anion Gap 13 Estim Creat Clear Calc 100.4 Estimated GFR > 60 POC Glucose 142 H 138 H Random Glucose 163 H Calcium 8.8 12/14/23 12/14/23 07:25 11:15 MCV MCH MCHC RDW Plt Count MPV Absolute Nucleated RBC Nucleated RBC % (auto) Anion Gap Estim Creat Clear Calc Estimated GFR POC Glucose 159 H 165 H Random Glucose Calcium Assessment and Plan (1) Abdominal wall abscess: Status: Acute (2) Diverticulitis: Status: Acute (3) Nicotine dependence, cigarettes, uncomplicated: Status: Acute Plan POD #1 s/p drainage of abdominal wall abscess, hand assisted laparoscopic sigmoid colectomy with colorectal anastomosis, closure of enterocutaneous fistula for diverticulitis. C/o severe pain post op but overall clinically appearing well. VSS. Abd is distended this morning but softly, dressings clean, VELASQUEZ with some purulent output. Dc [place]inton, dec IVF. Encouraged OOB and ambulation today, IS use. Cont clear liquids until distention improved, evidence of GI function. WBC count elevated, on IV zosyn for abdominal wall abscess. Repeat in am. 53-year-old female with pertinent history of eak-wrbxoka-jjrrvowdr diabetes mellitus, mixed hyperlipidemia, tobacco use disorder admitted to general surgery for management of diverticular abscess with consult placed to hospitalist service for medical management. #Diverticulitis with abd wall abscess -s/p abd wall abscess drainage, and assisted lap sigmoid colectomy with colorectal anastomosis and closure of enterocutaneous fistula POD #2 -plan per General surgery -tolerating full liquid diet, further diet per General surgery -add incentive spirometry encourage ambulation. -no fevers leukocytosis likely reactive, follow CBC # acute hypokalemia will replete and follow labs # wex-tkyywyk-cuqcxfruk type 2 diabetes with hyperglycemia -is stable blood sugars -continue Humalog sliding scale,and hold metformin/advanced to diabetic diet when able to tolerate by mouth # HLD -statin on hold per General surgery, resume upon discharge # tobacco use disorder counseling done on nicotine patch as needed Thank you for the consult, will continue following Quality Stroke Does the patient have a stroke diagnosis?: No VTE Prior VTE?: No VTE Risk Level:: Surgical - moderate VTE Device Contraindication: N/A - Device Ordered VTE Drug Contraindication: Treatment Not Indicated
[2023-12-14 15:18] VITALS: BP 116/65; PULSE 88; RESP 18; TEMP 36.4; O2SAT 98
[2023-12-14 16:13] LABS: Glucose, Whole Blood 123 mg/dL (60-115)
--- NOTE | 2023-12-14 18:44 | PC.NURSE ---
Pt. requested if she can have saltine crackers, Surg. PA at the bedside and approve crackers and keep monitoring the pt.
[2023-12-14 19:41] VITALS: BP 104/67; PULSE 87; RESP 18; TEMP 36.3; O2SAT 96
[2023-12-14 19:53] LABS: Glucose, Whole Blood 149 mg/dL (60-115)
[2023-12-15] MEDS: oxyCODONE HCl Immed Release 5 MG TABLET PO ×2 (00:22→19:17)
[2023-12-15] MEDS: KCl 20 mEq in 5 % Dex/Lact Rin 20 MEQ/1,000 ML IV.SOLN 100 MEQ IVCONT ×2 (00:24→08:23)
[2023-12-15] MEDS: Piperacillin Sodium/Tazobactam 3.375 GM in 0.9 % Sodium Chloride 50 ML IV ×3 (00:35→13:40)
[2023-12-15] MEDS: Acetaminophen 1,000 MG/100 ML PIGGYBACK 400 MG IV ×4 (01:10→19:17)
[2023-12-15 03:17] VITALS: BP 120/75; PULSE 81; RESP 14; TEMP 36.1; O2SAT 95
[2023-12-15 06:03] LABS: Hematocrit 37.4 % (37.0-47.0); Hemoglobin 12.3 g/dl (12.0-16.0); Mean Corpuscular HGB Conc 32.9 g/dl (31.0-35.0); Mean Corpuscular Hemoglobin 28.7 pg (27.0-33.0); Mean Corpuscular Volume 87.4 fL (80.0-98.0); Mean Platelet Volume 8.2 fL (9.4-12.3); Platelet Count 535 X10*3/uL (160-400); Red Blood Count 4.28 X10*6/uL (4.20-5.50); Red Cell Distribution Width 13.9 % (11.0-16.0)
[2023-12-15 06:20] LABS: Anion Gap 12 (12-20); Blood Urea Nitrogen 4 mg/dL (9-16); Calcium 9.4 mg/dL (8.4-10.2); Carbon Dioxide 26 mmol/L (22-29); Chloride 107 mmol/L (96-108); Creatinine Clr Calc Pharmacy 90.5; Estimated Glomerular Filt Rate > 60; Glucose Random 128 mg/dL (60-115); Potassium 3.6 mmol/L (3.3-5.1); Sodium 141 mmol/L (135-145)
[2023-12-15 07:33] VITALS: BP 115/70; PULSE 94; RESP 16; TEMP 36.8; O2SAT 97
--- NOTE | 2023-12-15 07:39 | PM.PNGS ---
Subjective Subjective Date of Service: 12/15/23 <Tova Bills PA-C - Last Filed: 12/15/23 07:45> 12/15/23 <Nilson Larios MD - Last Filed: 12/15/23 09:48> Interval history: Ate a few crackers without nausea, vomiting. Reports bloating is improved. Has had multiple bowel movements, formed. Ambulating in halls. Wants to eat solid food. <Tova Bills PA-C - Last Filed: 12/15/23 07:45> Physical Exam Vital Signs: Vital Signs: Last Vital Signs Temp 98.3 F 12/15/23 07:33 Pulse 94 12/15/23 07:33 Resp 16 12/15/23 07:33 BP 115/70 12/15/23 07:33 Pulse Ox 97 12/15/23 07:33 O2 Del Method Room Air 12/15/23 07:33 O2 Flow Rate 2 12/12/23 20:00 BMI result Body Mass Index 22.2 <Tova Bills PA-C - Last Filed: 12/15/23 07:45> Const: General: comfortable, no acute distress and alert <Tova Bills PA-C - Last Filed: 12/15/23 07:45> Orientation/consciousness: patient oriented x3 <LUCITA Arnold Last Filed: 12/15/23 07:45> Resp: Effort & Inspection: normal respiratory effort <Tova Bills PA-C - Last Filed: 12/15/23 07:45> GI: Other: VELASQUEZ drain scant sanguineous drainage <Tova Bills PA-C - Last Filed: 12/15/23 07:45> Inspection: Yes distended (improved ) and Yes incision (clean ) <LUCITA Arnold Last Filed: 12/15/23 07:45> Palpation (GI): Soft to palpation, Tenderness to palpation present (GI) (incisional) and no guarding <LUCITA Arnold Last Filed: 12/15/23 07:45> Percussion: Yes tympanic to percussion <LUCITA Arnold Last Filed: 12/15/23 07:45> Skin: General skin exam: no rashes or lesions noted <Tova Bills PA-C - Last Filed: 12/15/23 07:45> Neuro: General: patient oriented x3 <Tova Bills PA-C - Last Filed: 12/15/23 07:45> Objective Data Active Medications Glucose (Glucose Gel 15 Gm Gel..Gram.) 15 gm PO Q15M PRN; Protocol PRN Reason: per Hypoglycemia Standing Ord. Glucose (Glucose Gel 15 Gm Gel..Gram.) 15 gm PO Q15M PRN; Protocol PRN Reason: per Hypoglycemia Standing Ord. Hydromorphone HCl (Hydromorphone Hcl 0.5 Mg/0.5 Ml Syringe) 0.5 mg IVPUSH Q3H PRN; Protocol PRN Reason: Pain, Severe (Pain Scale 7-10) Last Admin: 12/13/23 10:02 Dose: 0.5 mg Documented By: ABENA Piperacillin Sod/Tazobactam (Sod 3.375 gm/ Sodium Chloride) 50 mls @ 100 mls/hr IV Q6H [facility] Last Infusion: 12/15/23 07:31 Dose: Infused Documented By: TINO Acetaminophen (Ofirmev) 1,000 mg in 100 mls @ 400 mls/hr IV Q6H [facility] Last Infusion: 12/15/23 07:16 Dose: Infused Documented By: TINO Dextrose (D10) 250 mls @ 750 mls/hr IV Q15M PRN; Protocol PRN Reason: per Hypoglycemia Standing Ord. Potassium Cl/Dextrose/Lact Ringer's (Kcl 20 Meq In 5 % Dex/Lact Rin) 20 meq in 1,000 mls @ 100 mls/hr IVCONT .Q10H [facility] Last Admin: 12/15/23 00:24 Dose: 100 mls/hr Documented By: ROOSEVELT Dextrose (D10) 250 mls @ 750 mls/hr IV Q15M PRN; Protocol PRN Reason: per Hypoglycemia Standing Ord. Insulin Human Lispro (Insulin Lispro 100 Unit/Ml 3 Ml Vial) 0 unit SUBCUT QIDACHS [facility]; Protocol Last Admin: 12/14/23 20:06 Dose: Not Given Documented By: ROOSEVELT Non-Admin Reason: No Insulin Coverage Nicotine (Nicotine 21 Mg Patch.Td24) 21 mg TRANSDERMA DAILY PRN PRN Reason: Nicotine Cravings Ondansetron HCl (Ondansetron Hcl 4 Mg/2 Ml Vial) 4 mg IVPUSH QID PRN PRN Reason: Nausea Oxycodone HCl (Oxycodone Hcl Immed Release 5 Mg Tablet) 5 mg PO Q6H PRN PRN Reason: Pain, Moderate(Pain Scale 4-6) Last Admin: 12/15/23 00:22 Dose: 5 mg Documented By: ROOSEVELT Sodium Chloride (0.9 % Sodium Chloride Flush 3 Ml Syringe) 3 ml IVFLUSH QSHIFT [facility] Last Admin: 12/15/23 00:26 Dose: Not Given Documented By: ROOSEVELT Non-Admin Reason: IV Running Zolpidem Tartrate (Zolpidem Tartrate 5 Mg Tablet) 5 mg PO BEDTIME PRN PRN Reason: Insomnia Last Admin: 12/12/23 21:06 Dose: 5 mg Documented By: SARAH <Tova Bills PA-C - Last Filed: 12/15/23 07:45> Labs CBC & Chem 7: 12/15/23 05:50 12/15/23 05:50 <Tova Bills PA-C - Last Filed: 12/15/23 07:45> Labs: Laboratory Results - last 24 hr 12/14/23 12/14/23 12/14/23 11:15 16:09 19:48 MCV MCH MCHC RDW Plt Count MPV Absolute Nucleated RBC Nucleated RBC % (auto) Anion Gap Estim Creat Clear Calc Estimated GFR POC Glucose 165 H 123 H 149 H Random Glucose Calcium 12/15/23 05:50 MCV 87.4 MCH 28.7 MCHC 32.9 RDW 13.9 Plt Count 535 H MPV 8.2 L Absolute Nucleated RBC 0.000 Nucleated RBC % (auto) 0.0 Anion Gap 12 Estim Creat Clear Calc 90.5 Estimated GFR > 60 POC Glucose Random Glucose 128 H Calcium 9.4 D <LUCITA Arnold Last Filed: 12/15/23 07:45> Procedures Date of Service Date of Service: 12/15/23 <LUCITA Arnold Filed: 12/15/23 07:45> 12/15/23 <Nilson Larios MD - Last Filed: 12/15/23 09:48> Progress Note: A&P Assessment and plan (1) Abdominal wall abscess: Status: Acute <Tova Bills PA-C - Last Filed: 12/15/23 07:45> (2) Diverticulitis: Status: Acute <Tova Bills PA-C - Last Filed: 12/15/23 07:45> Assessment and Plan: POD #3 s/p drainage of abdominal wall abscess, hand assisted laparoscopic sigmoid colectomy with colorectal anastomosis, closure of enterocutaneous fistula for diverticulitis. Now with return of GI function, abd distention improving. Will advance to solid diet. VELASQUEZ drain without purulent drainage however WBC count remains elevated, on IV zosyn. <Tova Bills PA-C - Last Filed: 12/15/23 07:45> POD #3 s/p drainage of abdominal wall abscess, hand assisted laparoscopic sigmoid colectomy with colorectal anastomosis, closure of enterocutaneous fistula for diverticulitis. Now with return of GI function, abd distention improving. Will advance to solid diet. VELASQUEZ drain without purulent drainage however WBC count remains elevated, on IV zosyn. Patient much improved this morning with return of bowel function. Abdomen is softer and less tympanic. Agree with the above assessment and plan. Pathology reviewed. Portion of tube associated with diverticular abscess. Perforation is not iatrogenic, rather this is the site of perforation and abdominal wall abscess. Will advance to regular diet. VELASQUEZ with serosanguinous output. Agree with tube removal. <Nilson Larios MD - Last Filed: 12/15/23 09:48> Time Spent With Patient Time: Total time managing care of this patient today ____ minutes. <Tova Bills PA-C - Last Filed: 12/15/23 07:45> Quality Stroke Does the patient have a stroke diagnosis?: No <Tova Bills PA-C - Last Filed: 12/15/23 07:45> VTE Prior VTE?: No <Tova Bills PA-C - Last Filed: 12/15/23 07:45> VTE Risk Level:: Surgical - moderate <Tova Bills PA-C - Last Filed: 12/15/23 07:45> VTE Device Contraindication: N/A - Device Ordered <Tova Bills PA-C - Last Filed: 12/15/23 07:45> VTE Drug Contraindication: Treatment Not Indicated <Tova Bills PA-C - Last Filed: 12/15/23 07:45>
[2023-12-15 07:45] LABS: Glucose, Whole Blood 163 mg/dL (60-115)
[2023-12-15] MEDS: 0.9 % Sodium Chloride Flush 3 ML SYRINGE IVFLUSH ×2 (08:22→13:41)
[2023-12-15] MEDS: Insulin Lispro 100 UNIT/ML 3 ML VIAL SUBCUT (08:22)
[2023-12-15 11:30] LABS: Glucose, Whole Blood 132 mg/dL (60-115)
--- NOTE | 2023-12-15 13:57 | HO.PM.IMPN ---
Subjective Subjective Date of Service: 12/15/23 Interval History: Feeling better this morning no episodes of nausea vomiting, had multiple bowel movements, complaining of some abdominal discomfort, ambulating with no lightheadedness or dizziness, no chest pain, no shortness of breath or palpitations. No acute events overnight. Review of Systems All other system reviewed and negative. Physical Exam Vital Signs: Vital Signs: Last Vital Signs Temp 98.3 F 12/15/23 07:33 Pulse 94 12/15/23 07:33 Resp 16 12/15/23 07:33 BP 115/70 12/15/23 07:33 Pulse Ox 97 12/15/23 07:33 O2 Del Method Room Air 12/15/23 07:33 O2 Flow Rate 2 12/12/23 20:00 BMI result Body Mass Index 22.2 Const: Other: General awake alert x3, in no acute distress. Neck supple, no JVD. CVS regular rate rhythm, Respiratory lungs clear to auscultation, no respiratory distress, no wheeze, no rhonchi. Gastrointestinal abdomen soft, bowel sounds audible, no guarding, no rigidity, mild tenderness, VELASQUEZ drain with serosanguineous drainage Extremities no edema. Neuro non focal Skin no rash Psych appropriate affect Objective Data Active Medications Glucose (Glucose Gel 15 Gm Gel..Gram.) 15 gm PO Q15M PRN; Protocol PRN Reason: per Hypoglycemia Standing Ord. Glucose (Glucose Gel 15 Gm Gel..Gram.) 15 gm PO Q15M PRN; Protocol PRN Reason: per Hypoglycemia Standing Ord. Hydromorphone HCl (Hydromorphone Hcl 0.5 Mg/0.5 Ml Syringe) 0.5 mg IVPUSH Q3H PRN; Protocol PRN Reason: Pain, Severe (Pain Scale 7-10) Last Admin: 12/13/23 10:02 Dose: 0.5 mg Documented By: ABENA Piperacillin Sod/Tazobactam (Sod 3.375 gm/ Sodium Chloride) 50 mls @ 100 mls/hr IV Q6H [facility] Last Admin: 12/15/23 13:40 Dose: 100 mls/hr Documented By: TINO Acetaminophen (Ofirmev) 1,000 mg in 100 mls @ 400 mls/hr IV Q6H [facility] Last Admin: 12/15/23 13:40 Dose: 400 mls/hr Documented By: TINO Dextrose (D10) 250 mls @ 750 mls/hr IV Q15M PRN; Protocol PRN Reason: per Hypoglycemia Standing Ord. Potassium Cl/Dextrose/Lact Ringer's (Kcl 20 Meq In 5 % Dex/Lact Rin) 20 meq in 1,000 mls @ 100 mls/hr IVCONT .Q10H [facility] Last Admin: 12/15/23 08:23 Dose: 100 mls/hr Documented By: TINO Dextrose (D10) 250 mls @ 750 mls/hr IV Q15M PRN; Protocol PRN Reason: per Hypoglycemia Standing Ord. Insulin Human Lispro (Insulin Lispro 100 Unit/Ml 3 Ml Vial) 0 unit SUBCUT QIDACHS [facility]; Protocol Last Admin: 12/15/23 11:33 Dose: Not Given Documented By: TINO Non-Admin Reason: No Insulin Coverage Nicotine (Nicotine 21 Mg Patch.Td24) 21 mg TRANSDERMA DAILY PRN PRN Reason: Nicotine Cravings Ondansetron HCl (Ondansetron Hcl 4 Mg/2 Ml Vial) 4 mg IVPUSH QID PRN PRN Reason: Nausea Oxycodone HCl (Oxycodone Hcl Immed Release 5 Mg Tablet) 5 mg PO Q6H PRN PRN Reason: Pain, Moderate(Pain Scale 4-6) Last Admin: 12/15/23 00:22 Dose: 5 mg Documented By: ROOSEVELT Sodium Chloride (0.9 % Sodium Chloride Flush 3 Ml Syringe) 3 ml [facility] Last Admin: 12/15/23 13:41 Dose: 3 ml Documented By: TINO Zolpidem Tartrate (Zolpidem Tartrate 5 Mg Tablet) 5 mg PO BEDTIME PRN PRN Reason: Insomnia Last Admin: 12/12/23 21:06 Dose: 5 mg Documented By: SARAH Labs 12/15/23 05:50 12/15/23 05:50 Labs: Laboratory Results - last 24 hr 12/14/23 12/14/23 12/15/23 16:09 19:48 05:50 MCV 87.4 MCH 28.7 MCHC 32.9 RDW 13.9 Plt Count 535 H MPV 8.2 L Absolute Nucleated RBC 0.000 Nucleated RBC % (auto) 0.0 Anion Gap 12 Estim Creat Clear Calc 90.5 Estimated GFR > 60 POC Glucose 123 H 149 H Random Glucose 128 H Calcium 9.4 D 12/15/23 12/15/23 07:31 11:21 MCV MCH MCHC RDW Plt Count MPV Absolute Nucleated RBC Nucleated RBC % (auto) Anion Gap Estim Creat Clear Calc Estimated GFR POC Glucose 163 H 132 H Random Glucose Calcium Assessment and Plan (1) Abdominal wall abscess: Status: Acute (2) Diverticulitis: Status: Acute (3) Nicotine dependence, cigarettes, uncomplicated: Status: Acute Plan 53-year-old female with pertinent history of [id number] diabetes mellitus, mixed hyperlipidemia, tobacco use disorder admitted to general surgery for management of diverticular abscess with consult placed to hospitalist service for medical management. #Diverticulitis with abd wall abscess -s/p abd wall abscess drainage, and assisted lap sigmoid colectomy with colorectal anastomosis and closure of enterocutaneous fistula POD #3 Advanced to solid diet, will change diet to diabetic DC IV fluids encourage incentive spirometry and ambulation. no fevers, leukocytosis likely reactive, follow CBC # acute hypokalemia repleted and normalized # eoc-[id number] type 2 diabetes with hyperglycemia stable blood sugars,on Humalog sliding scale, resume metformin upon discharge # HLD -statin on hold per General surgery, resume upon discharge # tobacco use disorder counseling done, continue nicotine patch as needed Disposition as per General surgery Quality Stroke Does the patient have a stroke diagnosis?: No VTE Prior VTE?: No VTE Risk Level:: Surgical - moderate VTE Device Contraindication: N/A - Device Ordered VTE Drug Contraindication: Treatment Not Indicated
[2023-12-15 15:24] VITALS: BP 121/68; PULSE 94; RESP 16; TEMP 36.2; O2SAT 98
--- NOTE | 2023-12-15 16:29 | PM.EVENT ---
Event Note Date of Service: 12/15/23 Event Note: Patient up sitting in the chair, comfortable She was able to tolerate some p.o. solid food without nausea or vomiting. Abdomen minimally distended, wounds clean and intact Possible discharge in a.m. if reasonably comfortable and tolerating p.o. Time Spent With Patient Time: Total time managing care of this patient today ____ minutes.
[2023-12-15 16:32] LABS: Glucose, Whole Blood 114 mg/dL (60-115)
[2023-12-15] MEDS: Amoxicillin/Potassium Clav 875 MG TABLET PO (17:31)
[2023-12-15 20:00] VITALS: BP 130/73; PULSE 87; RESP 20; TEMP 36.3; O2SAT 99
[2023-12-15 20:39] LABS: Glucose, Whole Blood 154 mg/dL (60-115)
[2023-12-16] MEDS: Acetaminophen 1,000 MG/100 ML PIGGYBACK 400 MG IV ×2 (00:50→09:10)
[2023-12-16] MEDS: 0.9 % Sodium Chloride Flush 3 ML SYRINGE IVFLUSH ×2 (00:50→09:10)
[2023-12-16 01:20] VITALS: RESP 18
[2023-12-16 03:39] VITALS: BP 118/71; PULSE 84; RESP 20; TEMP 36.2; O2SAT 95
[2023-12-16] MEDS: Amoxicillin/Potassium Clav 875 MG TABLET PO (06:06)
[2023-12-16 06:28] LABS: MANUAL DIFF FLAG NO
[2023-12-16 06:34] LABS: Basophils Absolute Auto 0.1 X10*3/uL (0.0-0.2); Basophils Percent Auto 0.4 % (0-2); Eosinophils Absolute Auto 0.4 X10*3/uL (0.0-0.4); Eosinophils Percent Auto 3.2 % (0-4); Hematocrit 37.2 % (37.0-47.0); Hemoglobin 12.4 g/dl (12.0-16.0); Imm Gran Abs Auto 0.07 X10*3/uL (0.00-0.03); Imm Gran Pct Auto 0.5 % (0.0-0.4); Lymphocytes Absolute Auto 2.7 X10*3/uL (1.2-4.9); Lymphocytes Percent Auto 19.3 % (20-40); Mean Corpuscular HGB Conc 33.3 g/dl (31.0-35.0); Mean Corpuscular Hemoglobin 28.8 pg (27.0-33.0); Mean Corpuscular Volume 86.3 fL (80.0-98.0); Mean Platelet Volume 8.3 fL (9.4-12.3); Monocytes Absolute Auto 0.7 X10*3/uL (0.1-1.2); Monocytes Percent Auto 5.1 % (2-11); Neutrophils Absolute Auto 9.9 x10*3/uL (2.0-8.3); Neutrophils Percent Auto 71.5 % (45-73); Platelet Count 575 X10*3/uL (160-400); Red Blood Count 4.31 X10*6/uL (4.20-5.50); Red Cell Distribution Width 13.8 % (11.0-16.0); White Blood Count 13.9 X10*3/uL (4.8-10.8)
[2023-12-16 07:21] VITALS: BP 116/74; PULSE 86; RESP 16; TEMP 36.7; O2SAT 99
[2023-12-16 07:38] LABS: Glucose, Whole Blood 130 mg/dL (60-115)
--- NOTE | 2023-12-16 07:39 | P.PNGS_ITS ---
Subjective Subjective Date of Service: 12/16/23 Interval history: Tolerated dinner last night without nausea or vomiting. Reports 2 bowel movements yesterday which were large. Denies any abdominal pain at this time. Physical Exam 2 Vital Signs: Vital Signs: Last Vital Signs Temp 98.1 F 12/16/23 07:21 Pulse 86 12/16/23 07:21 Resp 16 12/16/23 07:21 BP 116/74 12/16/23 07:21 Pulse Ox 99 12/16/23 07:21 O2 Del Method Room Air 12/16/23 07:21 O2 Flow Rate 2 12/12/23 20:00 BMI result Body Mass Index 22.2 Const: General: no acute distress Nutritional Appearance: well nourished Orientation/consciousness: patient oriented x3 Resp: Effort & Inspection: normal respiratory effort, no audible wheezes, no cough and no respiratory distress GI: Other: Incision clean, dry, and intact. VELASQUEZ drain site clean Inspection: Yes normal to inspection Palpation (GI): Soft to palpation, nontender, no guarding and not rigid Neuro: General: patient oriented x3 Extrem: Other: No edema Objective Data Active Medications Amoxicillin/Clavulanate Potassium (Amoxicillin/Potassium Clav 875 Mg Tablet) 875 mg PO Q12H [facility] Last Admin: 12/16/23 06:06 Dose: 875 mg Documented By: LATOYA Glucose (Glucose Gel 15 Gm Gel..Gram.) 15 gm PO Q15M PRN; Protocol PRN Reason: per Hypoglycemia Standing Ord. Glucose (Glucose Gel 15 Gm Gel..Gram.) 15 gm PO Q15M PRN; Protocol PRN Reason: per Hypoglycemia Standing Ord. Hydromorphone HCl (Hydromorphone Hcl 0.5 Mg/0.5 Ml Syringe) 0.5 mg IVPUSH Q3H PRN; Protocol PRN Reason: Pain, Severe (Pain Scale 7-10) Last Admin: 12/13/23 10:02 Dose: 0.5 mg Documented By: ABENA Acetaminophen (Ofirmev) 1,000 mg in 100 mls @ 400 mls/hr IV Q6H [facility] Last Infusion: 12/16/23 01:05 Dose: Infused Documented By: LATOYA Dextrose (D10) 250 mls @ 750 mls/hr IV Q15M PRN; Protocol PRN Reason: per Hypoglycemia Standing Ord. Dextrose (D10) 250 mls @ 750 mls/hr IV Q15M PRN; Protocol PRN Reason: per Hypoglycemia Standing Ord. Insulin Human Lispro (Insulin Lispro 100 Unit/Ml 3 Ml Vial) 0 unit SUBCUT QIDACHS [facility]; Protocol Last Admin: 12/15/23 20:41 Dose: Not Given Documented By: MIGUEL Non-Admin Reason: No Insulin Coverage Nicotine (Nicotine 21 Mg Patch.Td24) 21 mg TRANSDERMA DAILY PRN PRN Reason: Nicotine Cravings Ondansetron HCl (Ondansetron Hcl 4 Mg/2 Ml Vial) 4 mg IVPUSH QID PRN PRN Reason: Nausea Oxycodone HCl (Oxycodone Hcl Immed Release 5 Mg Tablet) 5 mg PO Q6H PRN PRN Reason: Pain, Moderate(Pain Scale 4-6) Last Admin: 12/15/23 19:17 Dose: 5 mg Documented By: MIGUEL Sodium Chloride (0.9 % Sodium Chloride Flush 3 Ml Syringe) 3 ml [facility] [place] Last Admin: 12/16/23 00:50 Dose: 3 ml Documented By: LATOYA Zolpidem Tartrate (Zolpidem Tartrate 5 Mg Tablet) 5 mg PO BEDTIME PRN PRN Reason: Insomnia Last Admin: 12/12/23 21:06 Dose: 5 mg Documented By: SARAH Labs 12/16/23 05:55 12/15/23 05:50 Labs: Laboratory Results - last 24 hr 12/15/23 12/15/23 12/15/23 07:31 11:21 16:04 MCV MCH MCHC RDW Plt Count MPV Immature Gran % (Auto) Neut % (Auto) Lymph % (Auto) Luce % (Auto) Eos % (Auto) Baso % (Auto) Lymph # (Auto) Luce # (Auto) Eos # (Auto) Baso # (Auto) Abs Immat Gran (auto) Absolute Neuts (auto) Absolute Nucleated RBC Nucleated RBC % (auto) POC Glucose 163 H 132 H 114 12/15/23 12/16/23 12/16/23 20:19 05:55 07:25 MCV 86.3 MCH 28.8 MCHC 33.3 RDW 13.8 Plt Count 575 H MPV 8.3 L Immature Gran % (Auto) 0.5 H Neut % (Auto) 71.5 Lymph % (Auto) 19.3 L Luce % (Auto) 5.1 Eos % (Auto) 3.2 Baso % (Auto) 0.4 Lymph # (Auto) 2.7 Luce # (Auto) 0.7 Eos # (Auto) 0.4 Baso # (Auto) 0.1 Abs Immat Gran (auto) 0.07 H Absolute Neuts (auto) 9.9 H Absolute Nucleated RBC 0.000 Nucleated RBC % (auto) 0.0 POC Glucose 154 H 130 H Procedures Date of Service Date of Service: 12/16/23 Progress Note: A&P Assessment and plan (1) Abdominal wall abscess: Status: Acute (2) Diverticulitis: Status: Acute Plan Pod 4 following hand assisted laparoscopic sigmoid colectomy for perforated sigmoid diverticulitis with abdominal wall abscess. Patient is much improved today with a soft abdomen, tolerating regular diet. WBC is much improved today as well. Patient eager to be discharged to home although her is leery. Will obtain physical therapy home safety evaluation. We will continue on antibiotics for another 5 days post discharge. Plan follow-up on 12/23/2023 for staple removal. Time Spent With Patient Time: Total time managing care of this patient today ____ minutes. Quality Stroke Does the patient have a stroke diagnosis?: No VTE Prior VTE?: No VTE Risk Level:: Surgical - moderate VTE Device Contraindication: N/A - Device Ordered VTE Drug Contraindication: Treatment Not Indicated
[2023-12-16 08:58] VITALS: BP 116/74; PULSE 86; O2SAT 99
--- NOTE | 2023-12-16 09:57 | P.F2F_ITS ---
Service Date Service Date: 12/16/23 Encounter Date of encounter: 12/16/23 Reasons for Services Signs and symptoms assessed: abdominal pain, abdominal distention, incision appearance, activity level Reason for physical therapy: home safety and mobility and therapeutic exercises Homebound: Leaving the home is medically contraindicated at this time without the asist of a device and/or another person due th the listed conditions above and below. Reason homebound: weakness related to hospital stay and unable to drive Homebound supporting statement: Ms. Ortega is s/p THEA sigmoid resection for diverticulitis. She will need home PT for strengthening and mobility. Certification: Based on the above findings, I certify that this patient is confined to the home and needs intermittent custodial care, physical therapy and/or speech therapy, or continues to need occupational therapy. The patient is under my care, and I have initiated the establishment of the plan of care. The patient will be followed by a physician who will periodically review the plan of care. Time Spent With Patient Time: Total time managing care of this patient today ____ minutes.
[2023-12-16] MEDS: oxyCODONE HCl Immed Release 5 MG TABLET PO (09:59)
--- NOTE | 2023-12-19 10:34 | P.DS_ITS ---
DS: Providers Provider Date of Service: 12/16/23 Date of admission: 12/12/23 07:22 Date of discharge: 12/16/23 Primary care physician: Pietro Russell MD Attending physician on admission: Nilson Larios Consults: 12/12/23 13:03 Consult to Hospitalist Routine Comment: Consulting Provider: Hospitalist Reason For Exam: Diabetes, diverticular abscess, med management Attending physician on discharge: Nilson Larios DS: Diagnosis Discharge Diagnosis (1) Abdominal wall abscess: Status: Acute (2) Diverticulitis: Status: Acute DS: Summary Hospital Course Hospital Course: HPI AT ADMISSION: 53-year-old female patient with several recurrent episodes of diverticulitis involving the sigmoid colon presenting recently with an abdominal wall abscess which was drained percutaneously Interventional Radiology. 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 A repeat CT abdomen and pelvis revealed 2 areas of sigmoid diverticulitis involving the proximal and distal sigmoid colon. She presents today for closure of the enterocutaneous fistula, drainage of the abdominal wall abscess and sigmoid colectomy. HOSPITAL COURSE: On 4/, drainage of abdominal wall abscess, hand assisted laparoscopic sigmoid colectomy with colorectal anastomosis, closure of enterocutaneous fistula was performed by Dr. Larios without complication. 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 The patient tolerated the procedure well. She was started on IV zosyn post operatively given the findings. She was admitted to the surgical service for observation. She had an uncomplicated recovery course. She was started on clear liquids post operatively. On POD #1, she had difficulty with pain however this improved throughout her stay. Her clinton was removed on POD #1. Her activity was increased. She was moderately distended without evidence of GI function and therefore she was continued on clear liquids until POD #3 when she began passing continuous flatus and had multiple BMs. Her diet was then advanced to solids. Her VELASQUEZ drain had scant output and was removed. She was transitioned to a course of oral Augmentin. Her WBC count downtrended and nearly normalized. On the day of discharge, she was tolerating a solid diet, pain was controlled on PO analgesics, had good GI function with benign abd and clean incisions. She felt ready for discharge to home. PT consult was obtained as she was still needed a walker with ambulation who recommended home PT. She was discharged to home on 12/16/23 in stable condition on a course of PO Augmentin. She is to follow up in the office in 1 week. Status at Discharge Functional status at discharge: independent ambulation Overall status at discharge: patient is progressing back to baseline Time Attestation Discharge Coordination Time (in mins): 40 Quality: Safe Use of Opioids Does Pt have an Active Cancer Diagnosis on the Problem List?: No Quality: Stroke Does the patient have a stroke diagnosis?: No Physical Exam Vital Signs: Vital Signs: Last Vital Signs Temp 98.1 F 12/16/23 07:21 Pulse 86 12/16/23 08:58 Resp 16 12/16/23 07:21 BP 116/74 12/16/23 08:58 Pulse Ox 99 12/16/23 08:58 O2 Del Method Room Air 12/16/23 07:21 O2 Flow Rate 2 12/12/23 20:00 BMI result Body Mass Index 22.2 Const: General: comfortable, no acute distress and alert Orienta tion/consciousness: patient oriented x3 Resp: Effort & Inspection: normal respiratory effort GI: Other: VELASQUEZ drain removed, site clean and dry, no purulent drainage Inspection: Yes distended (mildly, soft ) and Yes incision (clean ) Palpation (GI): Soft to palpation, Tenderness to palpation present (GI) (very mild incisional) and no guarding Skin: General skin exam: no rashes or lesions noted Neuro: General: patient oriented x3 and moves all extremities DS: Data Data Completed and Pending Completed studies during hospitalization [Text1]: 12/12/23 10:33 Surgical [PTH] Routine A. Colon, sigmoid, segmental resection: -Acute on chronic diverticulitis with perforation, abscess, mesenteritis, serositis, marked mesenteric and serosal fibrosis, and adhesions. -Benign adherent Fallopian tube with serosal abscess and fibrous adhesions. -Spastic diverticulosis. B. Colon, EEA rings : -Two annular portions of colonic mucosa and wall with no specific change, consistent with anastomotic rings. Procedures Drainage of Pelvic Cavity with Drainage Device, Percutaneous Approach (08/16/23) Discharge Plan Discharge Anticipated Discharge Date/Time: 12/16/23 07:14 Patient Disposition: Home Health Service Discharge Diagnosis: Kane sigmoid resection Referrals: [facility] [Other] - 1 Week Pietro Russell MD [Primary Care Provider] - 1 Week Nilson Larios MD [Physician] - 1 Week Discharge Medications: New amoxicillin-pot clavulanate 875-125 mg tablet 1 tab PO BID Qty: 10 0RF oxycodone 5 mg tablet 5 mg PO Q6H PRN (Reason: pain (scale score 7-10)) Qty: 24 0RF Rx Instructions: Partial Fill upon patient request. Continued atorvastatin 20 mg tablet 20 mg PO BEDTIME metformin 500 mg tablet extended release 24 hr 1,000 mg PO BEDTIME metformin 500 mg tablet extended release 24 hr 500 mg PO DAILY metoprolol succinate 25 mg tablet extended release 24 hr 25 mg PO BEDTIME Discontinued erythromycin 500 mg tablet 1 g PO TID Qty: 6 0RF Rx Instructions: administer at 1 PM, 2 PM, and 11 PM the day prior to surgery neomycin 500 mg tablet 1 g PO TID Qty: 6 0RF Rx Instructions: administer at 1 PM, 2 PM, and 11 PM the day prior to surgery polyethylene glycol 3350 [Miralax] 17 gram/dose powder 17 g PO ONCE Qty: 238 0RF Rx Instructions: Mixed entire bottle polyethylene glycol with 2 bottles of Gatorade (not red colored). Drink 1 cup every 15 minutes starting at 09:00 day prior to surgery until either completed or when bowels are clear. Discharge Orders: Discharge Order (Routine); Ordered 12/16/23 Ordered By: Tova Bills Diet: Diabetic diet Activity on Discharge: No heavy lifting Stand Alone Forms: Patient Portal Discharge page Print Language: Congolese Activity Restrictions/Additional Instructions: If the incision area is tender, you may apply an ice pack for short intervals (No more than 20 minutes on, followed by at least 20 minutes off). Do not apply heat. Do not use creams, lotions, or topical antibiotics. These can cause infection or allergic reaction. Ok to shower. You have nico closing your incision and these will be removed approximately 10-14 days after surgery. NO HEAVY LIFTING (>10lbs) or strenuous activity. Follow up in office. ([phone]) Call Your Doctor If: -Your temperature exceeds 101.5? F -You experience excessive pain or swelling -You have an unexpected reaction to medication -You have excessive bleeding -You experience continued vomiting/nausea -Your incision begins to separate -Your incision shows signs of infection such as increased redness, swelling, excessive pain, drainage (light blood or clear fluid is normal) or he at Care Plan Goals: Return to normal activity and diet Health Concerns: Diverticular abscess, diverticulitis Plan of Treatment: Hand assisted laparoscopic sigmoid colectomy Assessment: Sigmoid diverticulitis with abdominal wall abscess Discharge Date/Time: 12/16/23 11:05
== END 2023-12-16 11:05 | disposition home health service (06) | DRG 330 ==
LOC: HO.SSSA 07:28 → HO.S3 12:32
PROVIDERS: Hospitalist; Nurse Practitioner; Physician Assistant Surgical; Admitting Provider Surgery; PCP Family Medicine; Visit Provider Surgery
PROC: 0DTE4ZZ Resection of Large Intestine, Percutaneous Endoscopic Approach (ICD-10-PCS; principal; 2023-12-12 09:00)
DX: K57.20 Diverticulitis of large intestine with perforation and abscess without bleeding (principal); K63.2 Fistula of intestine; E87.6 Hypokalemia; E78.2 Mixed hyperlipidemia; E11.65 Type 2 diabetes mellitus with hyperglycemia; F17.210 Nicotine dependence, cigarettes, uncomplicated; Z71.6 Tobacco abuse counseling; Z79.84 Long term (current) use of oral hypoglycemic drugs; Z79.899 Other long term (current) drug therapy
CPT/HCPCS: 36415; 80048; 80053; 82947; 85025; 85027; 86850; 86900; 86901; 88305; 88307; 93005; 97162; C1758; J0131; J1100; J1170; J2250; J2405; J2543; J2704; J2795; J3010; J3480

== ENCOUNTER → 2023-12-12 07:22 | Outpatient (BNV) | payer OTHER, SELFPAY | PROVIDERS: Admitting Provider Surgery; PCP Family Medicine; Visit Provider Surgery | DX: L02.211 Cutaneous abscess of abdominal wall (principal); K57.92 Diverticulitis of intestine, part unspecified, without perforation or abscess without bleeding | CPT/HCPCS: 44207; 44213; 99024; 99499; G0180 ==

== ENCOUNTER → 2023-12-12 07:22 | Outpatient (BNV) | payer OTHER, SELFPAY | PROVIDERS: Admitting Provider Surgery; PCP Family Medicine; Visit Provider Physician Assistant | DX: K57.92 Diverticulitis of intestine, part unspecified, without perforation or abscess without bleeding (principal); L02.211 Cutaneous abscess of abdominal wall; F17.210 Nicotine dependence, cigarettes, uncomplicated | CPT/HCPCS: 99222; 99232 ==

== ENCOUNTER 2023-12-23 11:16 | Outpatient (AMB) | payer OTHER, SELFPAY ==
--- NOTE | 2023-12-23 11:19 | MHC.OFFVIS ---
Vital Signs 12/23/23 11:32 Height 5 ft Weight 113 lb 8.609 oz BMI 22.2 BP 118/70 Blood Pressure Location Lt brachial Position Sitting Pulse 108 H Intake Visit Reasons: S/P sigmoid colectomy Intake Note: Patient is seen in office for post op assessment post sigmoid colectomy. Pt c/o: admits to pain, some redness around the area, on antbx Systems Program Manager Required: No Pig Conveyor Operator: Pig Conveyor Operator Present Accompanied by: Family/Other Allergies mushroom Allergy (Intermediate, Verified 12/23/23 11:34) DRY HEAVES seafood Allergy (Intermediate, Verified 12/23/23 11:34) Nausea and Vomiting Medication List - Last Reconciled 12/23/23 by Nilson Larios MD atorvastatin 20 mg PO BEDTIME doxycycline hyclate 100 mg PO BID metformin ER 1,000 mg PO BEDTIME metformin ER 500 mg PO DAILY metoprolol succinate ER 25 mg PO BEDTIME HPI Comments Details: 53-year-old female patient status post sigmoid colectomy for perforated sigmoid diverticulitis with abdominal wall abscess of the left lower quadrant returning today for postop visit. She has some soreness with ambulation but generally is eating well and moving her bowels regularly. She denies any nausea or vomiting. She also denies fever or chills. [facility] Medical History History of diverticular abscess Abdominal mass Nicotine dependence, cigarettes, uncomplicated Hyperlipidemia Type 2 diabetes mellitus (~2013) Surgical History S/P laparoscopic colectomy (12/12/23) History of surgical removal of ganglion cyst (~1996) History of excision of hemangioma (~2021) History of colonoscopy (~2020) History of excision of epidermal inclusion cyst (~2022) History of tubal ligation (~1994) History of elbow surgery (~2013) Social History Household Members: Family Housing: House Are you a primary nurse healthcare manager to a significant other at home: No Do you presently have visiting nurse or other home services: No Comment: counts correct Patient Tobacco Use Status: Current everyday Tobacco user Tobacco use type: Cigarette Cigarette Packs Per Day: 1 Cigarettes Per Day: 20.0 Years Smoked: (onset 16yo, 1ppd x 36yrs, 30+PYH) e-Cigarette/Vaping Use: Never Used Second Hand Smoke Exposure: Yes service: No Current occupational status: employed 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 Some redness noted around the nico in the lower midline incision. All the nico removed from the trocar and midline incision sites. Steri-Strips were applied. Neuro General: patient oriented x3 Extrem General: Yes no clubbing, cyanosis or edema Assessment & Plan Assessment & Plan (1) Abdominal wall abscess: Code(s): L02.211 - Cutaneous abscess of abdominal wall Category: Medical Plan 53-year-old female patient status post hand assisted laparoscopic sigmoid colectomy for perforated sigmoid diverticulitis with abdominal wall abscess. She tolerated the procedure well and her wounds are healing nicely. There is a small amount of redness associated with the nico therefore I will place her on oral antibiotics for the next 10 days. I have asked her to return approximately 4 weeks for follow-up examination. She is welcome to call sooner for any new concerns. Medications: New doxycycline hyclate 100 mg PO BID 20 tabs 0RF L02.211 - Cutaneous abscess of abdominal wall Coding Level of Care Code Global (10002) Diagnoses Abdominal wall abscess L02.211
[2023-12-23 11:32] VITALS: BP 118/70; PULSE 108; BMI 22.2
== END 2023-12-23 11:41 | disposition home or self-care (01) ==
PROVIDERS: PCP Family Medicine; Visit Provider Surgery
DX: L02.211 Cutaneous abscess of abdominal wall (principal)
CPT/HCPCS: 99024

== ENCOUNTER → 2023-12-23 11:16 | Outpatient (BNVA) | payer OTHER, SELFPAY | PROVIDERS: PCP Family Medicine; Visit Provider Surgery ==

== ENCOUNTER → 2024-01-17 09:00 | Outpatient (AMB) | payer OTHER, SELFPAY ==
--- NOTE | 2024-01-17 09:05 | MHC.OFFVIS ---
Vital Signs 01/17/24 09:08 Height 5 ft Weight 116 lb 2 oz BMI 22.7 BP 121/73 Blood Pressure Location Lt brachial Position Sitting Pulse 83 Intake Visit Reasons: Follow up sigmoid colectomy Intake Note: Patient is seen in office for one month follow up visit, post sigmoid colectomy. Pt c/o: still feels some pulling, denies any complications Research Subject Required: No Accompanied by: Self / Same As Patient Allergies mushroom Allergy (Intermediate, Verified 01/17/24 09:08) DRY HEAVES seafood Allergy (Intermediate, Verified 01/17/24 09:08) Nausea and Vomiting HPI Comments Details: 53-year-old female patient status post sigmoid colectomy for perforated sigmoid diverticulitis with abdominal wall abscess of the left lower quadrant returning today for postop visit. She feels much improved with no further drainage from the incision. She does have occasional discomfort when hitting the bumps in the car. She is eating well and denies any problems with her bowels. She denies any fever chills. [facility] Medical History History of diverticular abscess Abdominal mass Nicotine dependence, cigarettes, uncomplicated Hyperlipidemia Type 2 diabetes mellitus (~2013) Surgical History S/P laparoscopic colectomy (12/12/23) History of surgical removal of ganglion cyst (~1996) History of excision of hemangioma (~2021) History of colonoscopy (~2020) History of excision of epidermal inclusion cyst (~2022) History of tubal ligation (~1994) History of elbow surgery (~2013) Social History Household Members: Family Housing: House Are you a primary career technical counselor to a significant other at home: No Do you presently have visiting nurse or other home services: No Comment: counts correct Patient Tobacco Use Status: Current everyday Tobacco user Tobacco use type: Cigarette Cigarette Packs Per Day: 1 Cigarettes Per Day: 20.0 Years Smoked: (onset 16yo, 1ppd x 36yrs, 30+PYH) e-Cigarette/Vaping Use: Never Used Second Hand Smoke Exposure: Yes service: No Current occupational status: employed 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 Evidence of hernia or infection. Skin General skin exam: no rashes or lesions noted Assessment & Plan Assessment & Plan (1) Abdominal wall abscess: Code(s): L02.211 - Cutaneous abscess of abdominal wall Category: Medical Plan 53-year-old female patient status post hand assisted laparoscopic sigmoid colectomy for perforated sigmoid diverticulitis with abdominal wall abscess. She tolerated the procedure well and her wounds are healing nicely. Her incisions are now well healed with no evidence of hernia or infection. She may resume normal activity without restrictions and should follow up as needed. Return to work on 01/31/2024. Coding Level of Care Code Global (50208) Diagnoses Abdominal wall abscess L02.211
[2024-01-17 09:08] VITALS: BP 121/73; PULSE 83; BMI 22.7
== END ==
PROVIDERS: PCP Family Medicine; Visit Provider Surgery
DX: L02.211 Cutaneous abscess of abdominal wall (principal)
CPT/HCPCS: 99024

== ENCOUNTER → 2024-01-17 09:00 | Outpatient (BNVA) | payer OTHER, SELFPAY | PROVIDERS: PCP Family Medicine; Visit Provider Surgery ==

== ENCOUNTER 2024-04-02 11:47 | Outpatient (REF) | payer OTHER, SELFPAY ==
--- NOTE | ~2024-04-02 | MM_ITS ---
EXAMINATION: MM SCREENING DIGITAL BREAST TOMOSYNTHESIS, BILATERAL CLINICAL INFORMATION: Screening. Asymptomatic. COMPARISON: Mammography: This study is compared with prior exams dating back to 2019. TECHNIQUE: Digital breast tomosynthesis is performed in both the craniocaudal and mediolateral oblique views along with computer-aided detection (CAD). Synthesized 2D images are generated from the tomosynthesis. FINDINGS: There are scattered areas of fibroglandular density (ACR BI-RADS breast composition Category b). There are no significant masses, abnormal calcifications, or other abnormalities. MM/MM tomosynthesis screening BI IMPRESSION: No mammographic evidence of malignancy. ASSESSMENT: BI-RADS BI-RADS 1 - Negative RECOMMENDATION: Routine annual mammography screening. 1 year F/U This examination should not preclude the clinical evaluation of a suspicious palpable abnormality. This patient's information was entered into a reminder system with a target due date for their next mammogram. Electronically signed by: Denise Madsen MD 04/30/2024 10:03 AM EDT
== END 2024-04-02 11:48 | disposition home or self-care (01) ==
LOC: HO.MAMMO 11:47
PROVIDERS: PCP Family Medicine; Visit Provider Family Medicine
DX: Z12.31 Encounter for screening mammogram for malignant neoplasm of breast (principal)
CPT/HCPCS: 77063; 77067

== ENCOUNTER → 2024-04-02 12:00 | Outpatient (BNV) | payer OTHER, SELFPAY | PROVIDERS: PCP Family Medicine; Visit Provider Radiology Diagnostic Radiology | DX: Z12.31 Encounter for screening mammogram for malignant neoplasm of breast (principal) | CPT/HCPCS: 77063; 77067 ==

== ENCOUNTER 2024-08-07 06:31 | Outpatient (REF) | payer OTHER, SELFPAY ==
[2024-08-07 10:17] LABS: Estimated Average Glucose 194 mg/dL; Hemoglobin A1C 280.7857 umol/L; Hemoglobin A1c % 8.4 % (<6.0); Total Hemoglobin (HGBA1C) 4139.5794 umol/L
[2024-08-07 10:23] LABS: Alanine Aminotransferase 38 U/L (0-31); Aspartate Amino Transferase 30 U/L (5-31); Blood Urea Nitrogen 9 mg/dL (9-16); Estimated Glomerular Filt Rate > 60
== END 2024-08-07 06:32 | disposition home or self-care (01) ==
LOC: HO.HMGCLDS 06:31
PROVIDERS: PCP Family Medicine; Visit Provider Family Medicine
DX: E11.9 Type 2 diabetes mellitus without complications (principal); E78.00 Pure hypercholesterolemia, unspecified; R00.0 Tachycardia, unspecified
CPT/HCPCS: 36415; 82550; 82565; 83036; 84450; 84460; 84520

== ENCOUNTER 2025-01-26 07:00 | Outpatient (REF) | payer OTHER, SELFPAY ==
[2025-01-26 11:50] LABS: Alanine Aminotransferase 67 U/L (0-31); Aspartate Amino Transferase 44 U/L (5-31); Cholesterol 88 mg/dL (<200); Estimated Glomerular Filt Rate > 60; Glucose Fasting 186 mg/dL (60-99); HDL Cholesterol 30 mg/dL (>40); LDL Cholesterol Calculated 42 mg/dL (<100); Triglycerides 83 mg/dL (<150)
[2025-01-26 11:58] LABS: Estimated Average Glucose 197 mg/dL; Hemoglobin A1c % 8.5 % (<6.0)
[2025-01-26 12:12] LABS: Creatinine Urine 114.73 mg/dL; Microalbum/Creatinine Ratio Ur 8.7 ug/mg cr (<30)
== END 2025-01-26 07:01 | disposition home or self-care (01) ==
LOC: HO.HMGCLDS 07:00
PROVIDERS: PCP Family Medicine; Visit Provider Family Medicine
DX: E11.9 Type 2 diabetes mellitus without complications (principal); E78.00 Pure hypercholesterolemia, unspecified
CPT/HCPCS: 36415; 80061; 82043; 82550; 82565; 82570; 82947; 83036; 84450; 84460

== ENCOUNTER 2025-04-23 14:51 | Outpatient (AMB) | payer OTHER, SELFPAY ==
--- NOTE | 2025-04-23 14:54 | A.OFFPC_ITS ---
Vital Signs 04/23/25 15:00 Height 5 ft Weight 60.328 kg BMI 26.0 BP 108/76 Pulse 97 Pulse Source Pulse Oximeter Temp 98.0 F Temp Source Temporal Artery Scan Pulse Oximetry (%) 99 Oxygen Delivery Method Room Air Intake Visit Reasons: 3 MO F/UP - ALENA PT Electro Mechanical Assembler Required: No Accompanied by: Self / Same As Patient Allergies mushroom Allergy (Intermediate, Verified 04/23/25 14:54) DRY HEAVES seafood Allergy (Intermediate, Verified 04/23/25 14:54) Nausea and Vomiting Tobacco use date assessed: 04/23/25 Dental Screening Dental Screen Date: 04/23/25 Did you have a dental visit in the last 12 months?: Yes Did you have a dental problem in the last 6 months where you did not have access to dental care?: No Was dental information given to patient?: No HPI HPI Comments History of Present Illness Details [age] year old female with history of type 2 diabetes, PACs, hyperlipidemia, pulmonary nodule who is a current 1 pack per day cigarette smoker presented to the office today for management of chronic conditions and to establish care. Former Dr. Russell, last seen 2 months. Type 2 diabetes-last hemoglobin A1c 8.5%. Reports she is not following a diabetic diet. Is taking metformin 1000 mg nightly. Eye exam is up-to-date Hyperlipidemia-on atorvastatin 20 mg daily. Due for lipid panel Chronic leukocytosis-etiology unclear. Denies any fevers, chills, night sweats, unintentional weight loss. Denies any recent illness Cigarette smoker/pulmonary nodule-continue smoking 1 pack of cigarettes per day, not interested in quitting. Previously following for lung cancer screenings. Last CT 04/2023 showing 3 mm nodule in the left upper lobe. History of diverticulitis-s/p colectomy. Reports occasional diarrhea but no melena or hematochezia. No abdominal pain. Dr. Ric Araujo- on toprol Concerns: None Health Maintenance: Last colonoscopy 01/2021 with 10 year follow-up advised Due for Pap smear Overdue for mammogram, scheduled for next month ROS: General: No fevers, malaise, unintentional weight loss HEENT: No blurred vision, diplopia. No sore throat, nasal congestion, rhinorrhea, sinus pain, ear pain Cardiovascular: No chest pain, palpitations, or leg edema Respiratory: No shortness of breath, wheezing, cough GI: No abdominal pain, nausea, vomiting, diarrhea, constipation, melena, hematochezia : No dysuria, hematuria, increased urinary frequency, decreased urinary output MSK: No myalgia, back pain Neuro: No headaches, weakness, paresthesias Skin: No rashes or lesions EXAM: Constitutional - Awake and Alert, No apparent distress Eyes - PERRL Cardiovascular - S1S2, RRR, No edema Respiratory - Normal lung expansion, Normal respiratory effort, No respiratory distress, CTA bilaterally Extremities - no calf tenderness bilaterally, no swelling Skin - Warm/Dry Neurological - Alert & oriented x3 Psychological - Appropriate affect [facility] Medical History History of diverticular abscess Abdominal mass Nicotine dependence, cigarettes, uncomplicated Hyperlipidemia Type 2 diabetes mellitus (~2013) Surgical History S/P laparoscopic colectomy (12/12/23) History of surgical removal of ganglion cyst (~1996) History of excision of hemangioma (~2021) History of colonoscopy (~2020) History of excision of epidermal inclusion cyst (~2022) History of tubal ligation (~1994) History of elbow surgery (~2013) Social History Household Members: Family Housing: House Are you a primary md do resident urgent care to a significant other at home: No Do you presently have visiting nurse or other home services: No Comment: counts correct Patient Tobacco Use Status: Current everyday Tobacco user Tobacco use type: Cigarette Cigarette Packs Per Day: 1 Cigarettes Per Day: 20.0 Years Smoked: (onset 16yo, 1ppd x 36yrs, 30+PYH) e-Cigarette/Vaping Use: Never Used Second Hand Smoke Exposure: Yes service: No Current occupational status: employed 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 Cognitive needs: No Hearing needs: No Vision needs: Yes (Rx glasses) Questionnaire Thrive Questionnaire Date Thrive assessed: 12/13/23 Physical exam (Primary Care) Vital Signs: Last Vital Signs Temp 98.0 F 04/23/25 15:00 Pulse 97 04/23/25 15:00 BP 108/76 04/23/25 15:00 Pulse Ox 99 04/23/25 15:00 Oxygen Delivery Method Room Air 04/23/25 15:00 BMI result Body Mass Index 26.0 Tobacco/Smoking Status: Tobacco use Status Tobacco use date assessed 04/23/25 04/23/25 15:02 Patient Tobacco Use Status Current everyday Tobacco 04/23/25 14:55 Tobacco use type Cigarette 04/23/25 14:55 e-Cigarette/Vaping Use Never Used 04/23/25 14:55 Thrive Assessment: Date of Thrive Assessment Date Thrive assessed 12/13/23 04/23/25 14:55 Coding Level of Care Code New Pt Level 4 (58788) Complex EM visit Add On G2211 Diagnoses Leukocytosis D72.829 Hyperlipidemia E78.5 Type 2 diabetes mellitus E11.9 Pulmonary nodule R91.1 Nicotine dependence, cigarettes, uncomplicated F17.210 Assessment & Plan Assessment & Plan (1) Leukocytosis: Code(s): D72.829 - Elevated white blood cell count, unspecified Category: Medical Plan: Etiology unclear. Referred for repeat CBC (2) Hyperlipidemia: Code(s): E78.5 - Hyperlipidemia, unspecified Category: Medical Plan: Lipid panel ordered. Continue atorvastatin. Diet low in saturated fats and highly processed foods. (3) Type 2 diabetes mellitus: Onset Date: ~2013 Code(s): E11.9 - Type 2 diabetes mellitus without complications Category: Medical Plan: Hemoglobin A1c ordered. Counseled on diabetic diet. Continue metformin. Continue with regular eye exams annually (4) Pulmonary nodule: Code(s): R91.1 - Solitary pulmonary nodule Category: Medical Plan: Referred back to pulmonology for lung cancer screenings (5) Nicotine dependence, cigarettes, uncomplicated: Comment: (current smoker, onset 16yo, 1ppd x 36yrs, 30+pyh) Code(s): F17.210 - Nicotine dependence, cigarettes, uncomplicated Category: Medical Plan: Consult on risk of ongoing cigarette smoking. Cessation strongly advised. Declines nicotine replacement Plan Follow-up in the office in 4 months. Labs to be completed following visit today. She is referred to pest control technician for Pap smear. Continue with mammograms. Orders: Orders Basic Metabolic Panel Today E11.9 - Type 2 diabetes mellitus without complications, E78.5 - Hyperlipidemia, unspecified Complete Blood Count Auto Diff Today E11.9 - Type 2 diabetes mellitus without complications, E78.5 - Hyperlipidemia, unspecified Hemoglobin A1c Today E11.9 - Type 2 diabetes mellitus without complications, E78.5 - Hyperlipidemia, unspecified LDL Cholesterol Direct Today E78.5 - Hyperlipidemia, unspecified Lipid Panel Today E11.9 - Type 2 diabetes mellitus without complications, E78.5 - Hyperlipidemia, unspecified Liver Panel Today E11.9 - Type 2 diabetes mellitus without complications, E78.5 - Hyperlipidemia, unspecified Referrals ROTOR PLATE WASHER Referral Z12.4 - Encounter for screening for malignant neoplasm of cervix Lung Cancer Screening Referral F17.210 - Nicotine dependence, cigarettes, uncomplicated, R91.1 - Solitary pulmonary nodule
[2025-04-23 15:00] VITALS: BP 108/76; PULSE 97; TEMP 36.7; O2SAT 99; BMI 26.0
--- OUTSIDE RECORDS SUMMARY | 2025-04-23 17:20 | XMS_ITS | Patient Health Record ---
Author Organization [facility] Address [address] [place] [address] Care Team Providers Care Equipment Hire Manager Name Role Phone Drew (RETIRED) Pietro WINCHESTER Primary Care Provider Unavailable Dom Horowitz Jr Unavailable Reason For Referral No Information Medications Medication SIG (Take, Route, Frequency, Duration) Notes [...] the procedure for 1 day 12/04/2020 Active Immunizations Vaccine Route Administration Date Status Comme nts Influenza Unknown 05/15/2020 Administered Social History Tobacco Use: Social History Observation Description Date Details (start date - stop date) Current Smoker NA - NA Tobacco Use/Smoking Question Answer Notes Patient is [...] Never (0 point) Points 2 Interpretation Negative Problems Problem Type SNOMED Code ICD Code Onset Dates Problem Status W/U Status Risk Notes Problem 466820571 Colon cancer screening (Z12.11) Active confirmed Problem 287411482 Encounter for ot her preprocedural examination (Z01.818) Active confirmed Problem 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 (Z79.84) Active confirmed Problem 153117276 Gastroesophageal reflux disease with esophagitis without hemorrhage (K21.00) Active confirmed Plan Of Treatment Future Test Test Name Order Date COLONOSCOPY 12/04/2020 Insurance Providers Payer Name Payer Address Payer Phone Subscriber Number Group Number Insured Name Patient Relationship to Insured Coverage Start Date Coverage End Date [facility] [address] [address] [place] [address] [id number] BUCK RESENDEZ Self - patient is the insured Medical (General) History Medical History History ICD Code elevated cholesterol diabetes mellitus Surgical History Surgery Date(Month/Year) tubal ligation 1994 cyst elbow and wrist
--- OUTSIDE RECORDS SUMMARY | 2025-04-23 17:20 | XMS_ITS | Clinical Summary ---
Author Organization [facility] Address [facility] [place] [address] Care Team Providers Care Dovetailer Name Role Phone None Primary Care Provider Unavailabl e Allergies No known active allergies Medications metFORMIN XR (Glucophage XR) 500 mg ER 24 hr tablet Take by mouth 2 times daily. Active atorvastatin (Lipitor) 20 mg tablet Take 20 mg by mouth nightly. Active metoprolol succinate XL (Toprol-XL) 25 mg ER 24 hr tablet Take 25 mg by mouth daily. 02/12/2025 Active Active Problems Problem Noted Date Diagnosed Date Injury of collateral ligament of finger of right hand 03/14/2025 Encounters Date Type Department Care Team Description 03/14/2025 11:15 AM EDT Office Visit Orthopaedics at [address] [address] Fermin Irby PA Injury of collateral ligament of finger of right hand, subsequent encounter 03/13/2025 Travel 03/04/2025 2:30 PM EDT Office Visit Orthopaedics at [address] [address] Fermin Irby PA Injury of collateral ligament of finger of right hand, subsequent encounter 03/04/2025 2:00 PM EDT - 03/04/2025 11:59 PM EDT Hospital Encounter XRay at [address] [address] Suhail Freeman MD Pain in finger of right hand Discharge Disposition: Home 03/04/2025 Travel 03/04/2025 Orders Only Orthopaedics at [address] [address] Fermin Irby PA Pain in finger of right hand 02/26/2025 Telephone Orthopaedics at [address] [address] Delia Reyes RN 02/23/2025 10:54 AM EDT - 02/23/2025 12:21 PM EDT Emergency Emergency Department at [address] [address] Colton Caballero DO Closed nondisplaced fracture of middle phalanx of right middle finger, initial encounter Discharge Disposition: Home from Last 3 Months Social History Tobacco Use Types Packs/Day Years Used Date Smoking Tobacco: Every Day Cigarettes Smokeless Tobacco: Never Tobacco Cessation:Ready to Q uit: Not Asked; Counseling Given: Not Answered Alcohol Use Standard Drinks/Week Comments Never 0 (1 standard drink = 0.6 oz pur e alcohol) DH IPV Inpatient Questions Answer Date Recorded Does Anyone Try to Keep You From Having Contact with Others or Doing Things Outside Your Home? no 02/23/2025 Feels Threatened by Someone no 02/12 Feels Unsafe at Home or Work/School no 02/23/2025 Physical Signs of Abuse Present no 02/23/2025 Comments Unknown Sex and Gender Information Value Date Recorded Sex Assigned at Not on file Legal Sex Female 10:50 AM EDT Gender Identity Not on file Sexual Orientation Not on file Last Filed Vital Signs Vital Sign Reading Time Taken Comments Blood Pressure 136/83 02/23/2025 10:58 AM EDT Pulse 85 03/14/2025 11:07 AM EDT Temperature 36.5 C (97.7 F) 02/23/2025 10:58 AM EDT Respiratory Rate 16 02/23/2025 10:58 AM EDT Oxygen Saturation 96% 03/14/2025 11:07 AM EDT Inhaled Oxygen Concentration - - Weight 58.5 kg (129 lb) 02/23/2025 10:56 AM EDT Height 152.4 cm (5') 02/23/2025 10:56 AM EDT Body Mass Index 25.19 02/23/2025 10:56 AM EDT Plan of Treatment Health Maintenance Due Date Last Done Comments CT Colonography 1969 Colonoscopy 1969 Colorectal Cancer Screening 1969 FIT DNA 1969 FIT 1969 Sigmoidoscopy (10 year) with FIT yearly 1969 Sigmoidoscopy 1969 HIV screen 1987 Hepatitis C Screening 1987 Hepatitis B vaccine (0-59 yrs) and Risk (1) 1988 Pneumoccocal Vaccine: 50+ (1 of 2 - PCV) 1988 Tetanus/Diphtheria/Pertussis Vaccines (1 - Tdap) 07/29 HPV test 1999 PAP Smear 1999 Diabetes Screening (HgbA1C or Glucose) 2004 Breast Cancer Share Decision Needed 2009 Breast Cancer screening 2009 Zoster vaccine (1 of 2) 2019 Advance Directive 2024 Covid-19 Vaccine (1 - season) 2025 Influenza (Flu) vaccine (1 o f 1 - Influenza standard series) 04/15/2025 Procedures Procedure Name Priority Date/Time Associated Diagnosis Comments XR FINGER(S) MIN 2 VIEWS RIGHT Routine 03/04/2025 2:24 PM EDT Pain in finger of right hand XR FINGER(S) MIN 2 VIEWS RIGHT STAT 02/23/2025 11:08 AM EDT from Last 3 Months Results * XR Fingers Min 2 views Right (Standard) (03/04/2025 2:24 PM EDT) Only the most recent of2 resultswithin the time period is included. WORKSTATION ID [id number] DH RAD Anatomical Region Laterality Modality Hand Right Computed Radiogr aphy Impressions 03/04/2025 2:32 PM EDT No obvious fracture by plain radiograph Thank you for letting us participate in the care of this patient. If you are a health care provider and have any questions regarding this report, please contact the number below. For patients who have questions please contact the health acute care surgeon that requested your imaging first. Electronically signed by: ALLISON CASON MD, [facility] ([phone]), at 03/04/2025 2:32 PM Narrative 03/04/2025 2:32 PM EDT EXAMINATION: XR FINGERS MIN 2 VIEWS RIGHT (STANDARD) CLINICAL HISTORY: R finger fx M79.644, Pain in right finger(s) TECHNIQUE: 3 views right third digit COMPARISON: February 23, 2025 FINDINGS: Persistent mild soft tissue swelling proximal aspect of the third digit. No radiographic visible fracture. No dislocation. No significant degeneration Procedure Note Allison Cason MD - 03/04/2025 EXAMINATION: XR FINGERS MIN 2 VIEWS RIGHT (STANDARD) CLINICAL HISTORY: R finger fx M79.644, Pain in right finger(s) TECHNIQUE: 3 views right third digit COMPARISON: February 23, 2025 FINDINGS: Persistent mild soft tissue swelling proximal aspect of thethird digit. No radiographic visible fracture. No dislocation. No significantdegeneration IMPRESSION No obvious fracture by plain radiograph Thank you for letting us participate in the care of this patient. If youare a health care provider and have any questions regarding this report,please contact the number below. For patients who have questions please contactthe health acute care surgeon that requested your imaging first. Electronically signed by: ALLISON CASON MD, [facility]([phone]), at 03/04/2025 2:32 PM us Suhail Freeman MD IMG DX ORDERABLES Final Res ult from Last 3 Months Insurance [facility] Care Teams Dovetailer Relationship Specialty Start Date End Date None None PCP - General 02/23/25
== END 2025-04-23 15:23 | disposition home or self-care (01) ==
LOC: HO.HMCHD 14:52
PROVIDERS: PCP Family Medicine; Visit Provider Physician Assistant
DX: E11.69 Type 2 diabetes mellitus with other specified complication (principal); E78.5 Hyperlipidemia, unspecified; D72.829 Elevated white blood cell count, unspecified; R91.1 Solitary pulmonary nodule; F17.210 Nicotine dependence, cigarettes, uncomplicated

== ENCOUNTER 2025-05-04 06:50 | Outpatient (REF) | payer OTHER, SELFPAY ==
--- OUTSIDE RECORDS SUMMARY | 2025-05-04 06:54 | XMS_ITS | Clinical Summary ---
Author Organization [facility] Address [facility] [place] [address] Care Team Providers Care Plastic Press Molder Name Role Phone None Primary Care Provider [...] 11:15 AM EDT Office Visit Orthopaedics at [address] [address] Fermin Irby PA Injury of collateral ligament of finger of right hand, subsequent encounter 03/13/2025 Travel 03/04/2025 2:30 PM EDT Office Visit Orthopaedics at [address] [address] Fermin Irby PA Injury of collateral ligament of finger of right hand, subsequent encounter 03/04/2025 2:00 PM EDT - 03/04/2025 11:59 PM EDT Hospital Encounter XRay at [address] [address] Suhail Freeman MD Pain in finger of right hand Discharge Disposition: Home 03/04/2025 Travel 03/04/2025 Orders Only Orthopaedics at [address] [address] Fermin Irby PA Pain in finger of right hand 02/26/2025 Telephone Orthopaedics at [address] [address] Delia Reyes RN 02/23/2025 10:54 AM EDT - 02/23/2025 12:21 PM EDT Emergency Emergency Department at [address] [address] Colton Caballero DO Closed nondisplaced [...] the time period is included. WORKSTATION ID [id number] DH RAD Anatomical Region Laterality Modality Hand Right Computed Radiogr aphy Impressions 03/04/2025 2:32 PM EDT No obvious fracture by plain radiograph Thank you for letting us participate in the care of this patient. If you are a health care provider and have any questions regarding this report, please contact the number below. For patients who have questions please contact the health career resource specialist that requested your imaging first. Electronically signed by: ALLISON CASON MD, [facility] ([phone]), at 03/04/2025 2:32 PM Narrative 03/04/2025 2:32 [...] patients who have questions please contactthe health career resource specialist that requested your imaging first. Electronically signed by: ALLISON CASON MD, [facility]([phone]), at 03/04/2025 2:32 PM us Suhail Freeman MD IMG DX ORDERABLES Final Res ult from Last [address] [facility] Care Teams Plastic Press Molder Relationship Specialty Start Date End Date None None PCP - General 02/23/25
--- OUTSIDE RECORDS SUMMARY | 2025-05-04 06:54 | XMS_ITS | Patient Health Record ---
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 (Z79.84) Active confirmed Problem 588007240 Gastroesophageal reflux disease with esophagitis without hemorrhage (K21.00) Active confirmed Plan Of Treatment Future Test Test Name Order Date COLONOSCOPY 12/04/2020 Insurance Providers Payer Name Payer Address Payer Phone Subscriber Number Group Number Insured Name Patient Relationship to Insured Coverage Start Date Coverage End Date [facility] [address] [address] [place] [address] [phone] [id number] BUCK RESENDEZ Self - patient is the insured Medical (General) History Medical History History ICD Code elevated cholesterol diabetes mellitus Surgical History Surgery Date(Month/Year) tubal ligation 1994 cyst elbow and wrist
[2025-05-04 11:10] LABS: MANUAL DIFF FLAG NO
[2025-05-04 11:13] LABS: Hematocrit 50.3 % (37.0-47.0); Hemoglobin 16.6 g/dl (12.0-16.0); Imm Gran Abs Auto 0.04 X10*3/uL (0.00-0.03); Imm Gran Pct Auto 0.3 % (0.0-0.4); Lymphocytes Absolute Auto 4.0 X10*3/uL (1.2-4.9); Mean Corpuscular HGB Conc 33.0 g/dl (31.0-35.0); Mean Corpuscular Hemoglobin 30.9 pg (27.0-33.0); Mean Corpuscular Volume 93.5 fL (80.0-98.0); NRBC Abs Auto 0.000 X10*3/uL (0.0-0.012); NRBC Pct Auto 0.0 /100WBC (0.0-0.2); Platelet Count 331 X10*3/uL (160-400); Red Blood Count 5.38 X10*6/uL (4.20-5.50); White Blood Count 12.9 X10*3/uL (4.8-10.8)
[2025-05-04 11:29] LABS: Hemoglobin A1C 330.0764 umol/L; Total Hemoglobin (HGBA1C) 4146.2781 umol/L
[2025-05-04 11:58] LABS: Alanine Aminotransferase 86 U/L (0-31); Albumin Level 4.5 g/dL (3.5-5.0); Alkaline Phosphatase 150 U/L (39-117); Anion Gap 15 (12-20); Aspartate Amino Transferase 86 U/L (5-31); Blood Urea Nitrogen 7 mg/dL (9-16); Calcium 9.5 mg/dL (8.4-10.2); Carbon Dioxide 22 mmol/L (22-29); Chloride 106 mmol/L (96-108); Cholesterol 90 mg/dL (<200); Estimated Glomerular Filt Rate > 60; HDL Cholesterol 28 mg/dL (>40); Potassium 4.6 mmol/L (3.3-5.1); Sodium 138 mmol/L (135-145); Total Protein 7.3 g/dL (6.5-8.0); Triglycerides 189 mg/dL (<150)
== END 2025-05-04 06:51 | disposition home or self-care (01) ==
LOC: HO.HMGCLDS 06:50
PROVIDERS: Visit Provider Physician Assistant
DX: E11.9 Type 2 diabetes mellitus without complications (principal); E78.5 Hyperlipidemia, unspecified
CPT/HCPCS: 36415; 80048; 80061; 80076; 83036; 83721; 85025

== ENCOUNTER 2025-05-23 13:51 | Outpatient (REF) | payer OTHER, SELFPAY ==
[2025-05-23 16:52] LABS: Hematocrit 45.9 % (37.0-47.0); Hemoglobin 15.3 g/dl (12.0-16.0); Imm Gran Abs Auto 0.02 X10*3/uL (0.00-0.03); Imm Gran Pct Auto 0.2 % (0.0-0.4); Lymphocytes Absolute Auto 5.9 X10*3/uL (1.2-4.9); MANUAL DIFF FLAG SCAN; Mean Corpuscular HGB Conc 33.3 g/dl (31.0-35.0); Mean Corpuscular Hemoglobin 30.4 pg (27.0-33.0); Mean Corpuscular Volume 91.1 fL (80.0-98.0); NRBC Abs Auto 0.000 X10*3/uL (0.0-0.012); NRBC Pct Auto 0.0 /100WBC (0.0-0.2); Platelet Count 331 X10*3/uL (160-400); Red Blood Count 5.04 X10*6/uL (4.20-5.50); SCAN SMEAR FLAG 1; White Blood Count 13.2 X10*3/uL (4.8-10.8)
[2025-05-23 17:03] LABS: Anion Gap 12 (12-20); Blood Urea Nitrogen 8 mg/dL (9-16); Calcium 9.6 mg/dL (8.4-10.2); Carbon Dioxide 23 mmol/L (22-29); Chloride 108 mmol/L (96-108); Estimated Glomerular Filt Rate > 60; Potassium 3.6 mmol/L (3.3-5.1); Sodium 139 mmol/L (135-145)
== END 2025-05-23 13:52 | disposition home or self-care (01) ==
LOC: HO.HMGCLDS 13:51
PROVIDERS: PCP Physician Assistant; Visit Provider Physician Assistant
DX: D72.829 Elevated white blood cell count, unspecified (principal); E86.0 Dehydration
CPT/HCPCS: 36415; 80048; 85025

== ENCOUNTER 2025-05-28 15:44 | Outpatient (REF) | payer OTHER, SELFPAY ==
--- OUTSIDE RECORDS SUMMARY | 2025-05-28 18:21 | XMS_ITS | Clinical Summary ---
[facility] [place] [address] Care Team Providers Care Product Test Specialist Name Role Phone Pietro Russell MD Primary Care Provider [phone] Allergies No known active allergies Medications metFORMIN [...] 11:15 AM EDT Office Visit Orthopaedics at [address] [address] Fermin Irby PA Injury of collateral ligament of finger of right hand, subsequent encounter 03/13/2025 Travel 03/04/2025 2:30 PM EDT Office Visit Orthopaedics at [address] [address] Fermin Irby PA Injury of collateral ligament of finger of right hand, subsequent encounter 03/04/2025 2:00 PM EDT - 03/04/2025 11:59 PM EDT Hospital Encounter XRay at [address] [address] Suhail Freeman MD Pain in finger of right hand Discharge Disposition: Home 03/04/2025 Travel 03/04/2025 Orders Only Orthopaedics at [address] [address] Fermin Irby PA Pain in finger of right hand 02/26/2025 Telephone Orthopaedics at [address] [address] eDlia Reyes RN from Last 3 Months Social History Tobacco [...] EDT Pain in finger of right hand from Last 3 Months Results * XR Fingers Min 2 views Right (Standard) (03/04/2025 2:24 PM EDT) WORKSTATION ID [id number] RAD Anatomical Region Laterality Modality Hand Right Computed Radiogr aphy Impressions 03/04/2025 2:32 PM EDT No obvious fracture by plain radiograph Thank you for letting us participate in the care of this patient. If you are a health care provider and have any questions regarding this report, please contact the number below. For patients who have questions please contact the health critical care transport nurse that requested your imaging first. Electronically signed by: ALLISON CASON MD, [facility] ([phone]), at 03/04/2025 2:32 PM Narrative 03/04/2025 2:32 [...] patients who have questions please contactthe health critical care transport nurse that requested your imaging first. Electronically signed by: ALLISON CASON MD, [facility]([phone]), at 03/04/2025 2:32 PM us Suhail Freeman MD IMG DX ORDERABLES Final Res ult from Last 3 Months Insurance [facility] Care Teams Product Test Specialist Relationship Specialty Start Date End Date Pietro Russell MD [address] [place] [id number] PCP - General Family Medicine 05/14/25
--- OUTSIDE RECORDS SUMMARY | 2025-05-28 18:21 | XMS_ITS | Patient Health Record ---
Author Organization [facility] Address [address] [place] [address] Care Team Providers Care Appliance Technician Name Role Phone Drew (RETIRED) Pietro WINCHESTER Primary Care Provider Unavailable Dom Horowitz Jr Unavailable Reason For Referral No Information Medications Medication SIG (Take, Route, Frequency, Duration) Notes Start Date End Date Status metFORMIN HCl ER 500 MG TAKE 1 TABLET TW ICE DAILY Oral; Duration: 90 Active Atorvastatin Calcium 20 MG TAKE 1 TABLET BY MOUTH EVERY DAY Oral; Duration: 90 Active Multivitamin Adults - as directed Orally Active CoQ-10 Active MiraLax (colon prep) 8.3 ounce ((238) grams mixed with Gatorade or Crystal Light orally begin at 5:00 p.m. the day before the procedure; Duration: 1 day 12/04/2020 Active Immunizations Vaccine Route [...] Problem Status W/U Status Risk Notes Problem Colon cancer screening (085176031) Colon cancer screening (Z12.11) Active confirmed Problem Pre-procedure evaluation check (791935553) Encounter for other preprocedural examination (Z01.818) Active confirmed Problem Long-term current use of drug therapy (858818549) retirement (current) use of oral hypoglycemic drugs (Z79.84) Active confirmed Problem Gastroesophageal reflux disease with esophagitis (disorder) (272751520) Gastroesophageal reflux disease with esophagitis without hemorrhage (K21.00) Active confirmed Plan Of Treatment Future Test Test Name Order Date COLONOSCOPY 12/04/2020 Insurance Providers Payer Name Payer Address Payer Phone Subscriber Number Group Number Insured Name Patient Relationship to Insured Coverage Start Date Coverage End Date [facility] [address] [address] [place] [address] [phone] [id number] BUCK RESENDEZ Self - patient is the insured Medical (General) History Medical History History ICD Code elevated cholesterol diabetes mellitus Surgical History Surgery Date(Month/Year) tubal ligation 1994 cyst elbow and wrist
== END 2025-05-28 15:45 | disposition home or self-care (01) ==
LOC: HO.MAMMO 15:44
PROVIDERS: PCP Internal Medicine; Visit Provider Internal Medicine
DX: Z12.31 Encounter for screening mammogram for malignant neoplasm of breast (principal)
CPT/HCPCS: 77063; 77067

== ENCOUNTER → 2025-05-28 16:00 | Outpatient (BNV) | payer OTHER, SELFPAY | PROVIDERS: PCP Internal Medicine; Visit Provider Radiology Body Imaging | DX: Z12.31 Encounter for screening mammogram for malignant neoplasm of breast (principal) | CPT/HCPCS: 77063; 77067 ==

== ENCOUNTER 2025-07-23 16:19 | Outpatient (REF) | payer OTHER, SELFPAY ==
--- NOTE | ~2025-07-23 | CT_ITS ---
EXAMINATION: CT LUNG SCREENING HISTORY: F17.210 - Nicotine dependence, cigarettes, uncomplicated TECHNIQUE: Low dose axial images were obtained from the sternal notch to upper abdomen without IV contrast per standard departmental protocol. Sagittal and coronal reformatted images were also obtained and reviewed. One or more of the following techniques was used for dose reduction: Automated exposure control, adjustment of the mA and/or kV according to patient size, use of iterative reconstruction technique. DLP: 40 mGy-cm COMPARISON: Comparison is made with the prior examination dated 05/04/2023. FINDINGS: Lung nodules: Again seen is a 3 mm nodule in the right upper lobe (series 5, image 47) and a 4 mm nodule in the anterior aspect of the right upper lobe (series 5, image 62). There is a punctate nodule in the left lower lobe (series 5, image 86) without change. No new nodules are identified. Emphysema: mild Coronary Calcification: none Aortic Arch Calcification: mild Potentially Significant Incidentals : none Additional Chest Findings: There is no pleural or pericardial effusion. No mediastinal or axillary lymphadenopathy is identified. Visualized upper abdomen: The visualized portions of the liver and spleen have an unremarkable unenhanced appearance. Again seen are multiple right adrenal adenomas measuring up to 1.[address]/CT lung screening IMPRESSION: No suspicious pulmonary nodules are identified. LUNG-RADS ASSESSMENT: Lung-RADS 2: Benign MANAGEMENT: Continue annual screening with LDCT in 12 months Category S: N/A Electronically signed by: Colton Del Valle MD 07/24/2025 07:05 AM ASHOK
--- OUTSIDE RECORDS SUMMARY | 2025-07-23 22:53 | XMS_ITS | Patient Health Record ---
Author Organization [facility] Address [address] [place] [address] Care Team Providers Care Lip Cutter And Scorer Name Role Phone Drew (RETIRED) Pietro WINCHESTER Primary Care Provider Unavailable Dmo Horowitz Jr Unavailable [phone] Reason For Referral No Information Medications Medication SIG (Take, Route, Frequency, Duration) Notes Start Date End Date Status metFORMIN HCl ER 500 MG Tablet Extended Release 24 Hour TAKE 1 TABLET TWICE DAILY Oral; Duration: 90 Active Atorvastatin Calcium 20 MG Tablet TAKE 1 TABLET BY MOUTH EVERY DAY Oral; Duration: 90 Active Multivitamin Adults - Tablet as directed Orally Active CoQ-10 Active MiraLax [...] stop date) Current Smoker NA - NA Social History Drugs/Alcohol: Social Info Question Answer Notes Alcohol Screen Did you have a drink containing alcohol in the past year? Yes How often did you have a drink containing alcohol in the past year? 2 to 4 times a month (2 points) How many drinks did you have on a typical day when you were drinking in the past year? 1 or 2 drinks (0 point) How often did you have 6 or more drinks on one occasion in the past year? Never (0 point) Points 2 Interpretation Negative Tobacco Use: Social Info Question Answer Notes Tobacco Use/Smoking Patient is a current smoker How often do you smoke cigarettes? every day How many cigarettes a day do you smoke? 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 Problems Problem Type SNOMED Code ICD Code Onset Dates Problem Status W/U Status Risk Notes Problem Colon cancer screening (268342107) Colon cancer screening (Z12.11) Active confirmed Problem Pre-procedure evaluation check (595701615) Encounter for other preprocedural examination (Z01.818) Active confirmed Problem Long-term current use of drug therapy (519702161) longterm (current) use of oral hypoglycemic drugs (Z79.84) Active confirmed Problem Gastroesophageal reflux disease with esophagitis (disorder) (564629711) Gastroesophageal reflux disease with esophagitis without hemorrhage (K21.00) Active confirmed Plan Of Treatment Future Test Test Name Order Date COLONOSCOPY 12/04/2020 Insurance Providers Payer Name Payer Address Payer Phone Subscriber Number Group Number Insured Name Patient Relationship to Insured Coverage Start Date Coverage End Date [facility] [address] [address] [place] [address] [phone] [id number] BUCK RESENDEZ Self - patient is the insured Medical (General) History Medical History History ICD Code elevated cholesterol diabetes mellitus Surgical History Surgery Date(Month/Year) tubal ligation 1994 cyst elbow and wrist
--- OUTSIDE RECORDS SUMMARY | 2025-07-23 22:53 | XMS_ITS | Clinical Summary ---
Author Organization [facility] [place] [address] Care Team Providers Care Nonprofit Manager Name Role Phone Pietro Russell MD Primary Care Provider [phone] Allergies No known active allergies Medications metFORMIN [...] ligament of finger of right hand 03/14/2025 Social History Tobacco Use Types Packs/Day Years Used Date Smoking Tobacco: Every Day Cigarettes Smokeless Tobacco: Never Tobacco Cessation:Ready to Q uit: Not Asked; Counseling Given: Not Answered Alcohol Use Standard Drinks/Week Comments Never 0 (1 standard drink = 0.6 oz pur e alcohol) IPV Inpatient Questions Answer Date Recorded Does [...] f 1 - Influenza standard series) 04/15/2025 Insurance [facility] Care Teams Nonprofit Manager Relationship Specialty Start Date End Date Pietro Russell MD [facility] [address] [place] [address] [place] [address] PCP - General Family Medicine 05/14/25
== END 2025-07-23 16:20 | disposition home or self-care (01) ==
LOC: HO.CT 16:19
PROVIDERS: PCP Internal Medicine; Visit Provider Physician Assistant Medical
DX: F17.210 Nicotine dependence, cigarettes, uncomplicated (principal)
CPT/HCPCS: 71271

== ENCOUNTER → 2025-07-23 16:21 | Outpatient (BNV) | payer OTHER, SELFPAY | PROVIDERS: PCP Internal Medicine; Visit Provider Radiology Diagnostic Radiology | DX: Z12.2 Encounter for screening for malignant neoplasm of respiratory organs (principal); Z87.891 Personal history of nicotine dependence | CPT/HCPCS: 71271 ==